=== PATIENT | male | born 1960 | race Two or more races ===

== ENCOUNTER 2017-12-31 14:10 | Inpatient (IN) | payer OTHER ==
[~2017-12-31] VITALS: Ht 172.7 cm; Wt 63.5 kg
[2017-12-31 16:00] VITALS: BP 158/98
--- NOTE | 2017-12-31 18:03 | PDOC1 ---
History and Physical Date of Admission Date of Admission DATE: 12/31/17 TIME: 18:02 Identification/Chief Complaint Chief Complaint sent here from [facility], FOR syncopal episode and elevated tropinin i , LOC with loss of bladder continence x sec, post ictal confusion is prisoner with in [place], has remote hx mi also having vague abdominal discomfort, CT ABD WNL, CT HEAD OK, SOME DDD C/S NOTED ON CT C/S Past Medical History Cardiovascular: CAD, CA, Syncope Pulmonary: No pertinent hx GI: GERD Psych: Anxiety Infectious disease: No pertinent hx Renal/: No pertinent hx Dermatology: No pertinent hx Family History Family History: High Cholestrol Social History Smoke: Quit ALCOHOL: none Drugs: None ROS Review of System 14 PT ROS OTHERWISE NEG General: YES: Other (HAS NOTED SOME WEIGHT LOSS); No: Chills, Night Sweats, Fatigue, Malaise, Appetite PSYCHOLOGICAL ROS: YES: Anxiety Hematological and Lymphatic: No: Bleeding Problems, Blood Clots, Blood Transfusions, Brusing, Night Sweats, Pallor, Swollen Lymph Nodes, Other Breast: No New/Changing Breast Lumps, No Nipple changes, No Nipple discharge, No Other Respiratory: No: Cough, Hemoptysis, Orthopnea, Pleuritic Pain, Shortness of breath, SOB with excertion, Sputum Changes, Stridor, Tachypnea, Wheezing, Other Cardiovascular: yes Other (SYNCOPE WITH POST LOC CONFUSION); No Chest Pain, No Palpitations, No Orthopnea, No Paroxysmal Noc. Dyspnea, No Edema, No Lt Headedness Gastrointestinal: Yes Abdominal Pain Neurological: Yes Weakness Physical Exam General: Alert, Oriented X3, Cooperative, No acute distress HEENT: Atraumatic, PERRLA, EOMI Lungs: Clear to auscultation, Normal air movement Heart: S1S2, no thrills, no gallops, no murmurs Breasts: Not examined Abdomen: Normal bowel sounds, Soft, No tenderness, No hepatosplenomegaly Rectal Exam: not examined, mass Extremities: No clubbing, No cyanosis, No edema Skin: No breakdown Neuro: Normal speech, Cranial nerves 3-12 NL Psych/Mental Status: Mental status NL, Mood NL Vitals Vitals Vital Signs Date Time Temp Pulse Resp B/P (MAP) Pulse Ox O2 Delivery O2 Flow Rate FiO2 12/31/17 16:00 98.5 75 20 158/98 (118) 98 Room Air 98.5 VTE Prophylaxis Ordered VTE Prophylaxis Devices: Yes VTE Pharmacological Prophylaxi: Yes Assessment/Plan Assessment/Plan impression 1. syncopal episode with hx CAD 2. LOC with loss of bladder continence 3. CAD/ REMOTE CA 4. elevated troponin i 5. ABDOMINAL DISCOMFORT, nonspecific 6. prostatic enlargement by ct 7. RLL nodule, suspect nipple shadow 8. GERD PLAN 1. TELE 2. CARDIOLOGY CONSULT 3. ECHO 4. seizure precautions 5. neurochecks q 4 hrs 6. EEG 7. IV PROTONIX 8. LOVENOX DVT PROPHYLAXIS 9. mri head 10. gi consult JUAN J BACON MD Dec 31, 2017 18:03
[2017-12-31] MEDS ORDERED: TRAM50TA PO (18:05)
[2017-12-31] MEDS ORDERED: CHOL100013 PO (18:05)
[2017-12-31] MEDS ORDERED: LISI-334 PO (18:05)
[2017-12-31] MEDS ORDERED: RANI150T2 PO (18:05)
[2017-12-31] MEDS ORDERED: METO25TA4 PO (18:05)
[2017-12-31] MEDS ORDERED: IBUP-1060 PO (18:05)
[2017-12-31] MEDS ORDERED: CYCL5TAB PO (18:05)
[2017-12-31] MEDS ORDERED: 0.9 % SODIUM CHLORIDE 10 ML DISP.SYRIN. IV PRN (18:45)
[2017-12-31] MEDS ORDERED: BISACODYL 10 MG SUPP.RECT. PR PRN (18:45)
[2017-12-31] MEDS ORDERED: ASPIRIN 325 MG TABLET PO ONE (18:45)
[2017-12-31] MEDS ORDERED: MAGNESIUM HYDROXIDE 2,400 MG/30 ML ORAL.SUSP. PO PRN (18:45)
[2017-12-31] MEDS ORDERED: NITROGLYCERIN SUBLINGUAL 0.4 MG BOTTLE OF 25. SL PRN (18:45)
[2017-12-31] MEDS ORDERED: PROCHLORPERAZINE 25 MG SUPP.RECT. PR PRN (18:45)
[2017-12-31] MEDS ORDERED: ONDANSETRON PF 4 MG/2 ML VIAL. IV PRN (18:45)
[2017-12-31] MEDS ORDERED: MAG HYDROX/ALUMINUM HYD/SIMETH 30 ML ORAL.SUSP PO PRN (18:45)
[2017-12-31 19:00] VITALS: BP 168/107
[2017-12-31] MEDS ORDERED: IBUPROFEN 800 MG TABLET. PO PRN (19:00)
[2017-12-31] MEDS: IV NORMAL SALINE 1000ML BAG 1,000 ML IV SCH (19:14)
[2017-12-31] MEDS ORDERED: ENOXAPARIN 40 MG/0.4 ML SYRINGE. SQ SCH ×2 (20:00→21:00)
[2017-12-31] MEDS: DOCUSATE SODIUM 100 MG CAPSULE. PO SCH (20:58)
[2017-12-31] MEDS: METOPROLOL TART IMMED RELEASE 25 MG TABLET. PO SCH (20:59)
[2017-12-31] MEDS: FAMOTIDINE 20 MG TABLET. PO SCH (20:59)
[2017-12-31] MEDS: CYCLOBENZAPRINE 10 MG TABLET. PO SCH (21:00)
[2017-12-31] MEDS: SENNOSIDES/DOCUSATE 8.6/50MG TABLET. PO SCH (21:00)
[2017-12-31 23:00] VITALS: BP 162/107
[2018-01-01] MEDS: ZOLPIDEM 5 MG TABLET. PO PRN ×2 (00:07→23:40)
[2018-01-01 03:00] VITALS: BP 145/101
[2018-01-01 05:23] LABS: BASO # 0.1 x10^3/uL (0.0-0.2); BASO % 1 % (0-3); EOS # 0.2 x10^3/uL (0.0-0.7); EOS % 2 % (0-3); HEMATOCRIT 35.7 % (39.0-53.0); HEMOGLOBIN 12.3 g/dL (13.0-17.5); LYMPH # 2.2 x10^3/uL (1.0-4.8); LYMPH % 22 % (24-48); MEAN CORPUSCULAR HEMOGLOBIN 30 pg (25-35); MEAN CORPUSCULAR HGB CONC 35 g/dL (31-37); MEAN CORPUSCULAR VOLUME 88 fL (79-100); MONO # 0.7 x10^3/uL (0.0-1.1); MONO % 7 % (0-9); NEUT # 6.5 x10^3uL (1.8-7.7); NEUT % 67 % (31-73); PLATELET COUNT 275 x10^3/uL (140-400); RED BLOOD COUNT 4.08 x10^6/uL (4.30-5.70); RED CELL DISTRIBUTION WIDTH 13.2 % (11.5-14.5); WHITE BLOOD COUNT 9.6 x10^3/uL (4.0-11.0)
[2018-01-01 05:29] LABS: PROTHROMBIN TIME PATIENT 14.2 SEC (11.7-14.0)
[2018-01-01 05:30] LABS: ALBUMIN 3.4 g/dL (3.4-5.0); ALBUMIN/GLOBULIN RATIO 1.1 (1.0-1.7); CALCIUM 9.2 mg/dL (8.5-10.1); CREATININE 0.8 mg/dL (0.7-1.3); GFR 99.6; POTASSIUM 3.6 mmol/L (3.5-5.1); TOTAL BILIRUBIN 0.4 mg/dL (0.2-1.0); TOTAL PROTEIN 6.4 g/dL (6.4-8.2)
[2018-01-01] MEDS: traMADol 50 MG TABLET PO PRN ×2 (05:33→15:46)
[2018-01-01] MEDS: IV NORMAL SALINE 1000ML BAG 1,000 ML IV SCH ×3 (05:38→19:30)
[2018-01-01 05:45] LABS: CHOLESTEROL/HDL RATIO 3.8
[2018-01-01 07:00] VITALS: BP 200/133
--- NOTE | 2018-01-01 08:05 | RAD ---
Portable chest, 12/31/2017: HISTORY: Chest pain Comparison is made to study of earlier the same day. The heart size and pulmonary vascularity are normal. There is mild scarring over the pulmonary apices. No acute infiltrate is seen. There is no evidence of pleural fluid. IMPRESSION: No acute cardiopulmonary abnormality is detected. Electronically signed by: Abhijeet Henao MD (01/01/2018 8:02 AM) [facility]
[2018-01-01] MEDS: FAMOTIDINE 20 MG TABLET. PO SCH (08:19)
[2018-01-01] MEDS: DOCUSATE SODIUM 100 MG CAPSULE. PO SCH ×2 (08:19→20:09)
[2018-01-01] MEDS: CHOLECALCIFEROL (VITAMIN D3) 1,000 UNIT TABLET PO SCH (08:19)
[2018-01-01] MEDS: SENNOSIDES/DOCUSATE 8.6/50MG TABLET. PO SCH ×2 (08:19→20:10)
[2018-01-01] MEDS: CYCLOBENZAPRINE 10 MG TABLET. PO SCH ×2 (08:20→20:09)
[2018-01-01] MEDS: LISINOPRIL 20 MG TABLET PO SCH (08:20)
[2018-01-01] MEDS: METOPROLOL TART IMMED RELEASE 25 MG TABLET. PO SCH (08:21)
--- NOTE | 2018-01-01 08:25 | EKG ---
[facility] [address] [place] [address] Test Date: 2018-01-01 Test Time: 07:30:28 Pat Name: ADELITA GLEZ Department: Room: 567 1 Gender: M Compliance Representative: STEPHAN : 1960 Requested By: JUAN J BACON Order Number: [id number] Reading MD: Jerry Larios MD Measurements Intervals [place] Rate: 70 P: 61 [place]: 162 QRS: 13 QRSD: 78 T: 39 QT: 382 QTc: 415 Interpretive Statements SINUS RHYTHM Electronically Signed On 01-01-2018 12:28:11 CDT by Jerry Larios MD
[2018-01-01] MEDS ORDERED: LABETALOL 20 MG/4 ML DISP.SYRIN. IVP PRN (09:15)
--- NOTE | 2018-01-01 09:25 | PDOC2 ---
GI CONSULT Reason For Consult: Abd discomfort HPI: HPI: 57 y/o male transferred to [facility] from [facility]. Recent issues w/ headaches and dizziness, then syncope yesterday. Followed by cardiology and neurology with workup in process. GI-dickey, has had issues w/ reflux mostly at night and after eating x 3 months. Taking ranitidine and Gaviscon w/o much relief. Some nausea after syncope, no vomiting. No dysphagia but feels like "food just won' t go down sometimes" - says he loses appetite quickly. Has lost ~10 pounds because he now only eats one meal a day. No diarrhea or constipation, but did have a period of passing significant amounts of red blood with stools - painless. Last occurred 3 weeks ago. Has happened int he past to a lesser extent. H/o CAD w/ stent and chronic neck pain on ASA and Tramadol, also recently ibuprofen for dental extractions. [place] about 11 [place] - recalls a "benign stomach cyst" but otherwise no significant findings. No GB, liver, or pancreas history. Hgb 12.3 [address]12 [address] A/P @ [facility] unremarkable for acute issue. PMH: PMH: CAD w/ stent, CA, HTN, ?TIA, ?seizure, BPH, GERD, depression, chronic neck pain , right knee arthroscopy, cataract removal Social History: Smoke: Quit ALCOHOL: none Drugs: Marijuana ROS: GEN: Denies fevers, chills, sweats HEENT: Denies blurred vision, sore throat CV: Denies chest pain RESP: Denies shortness of air, cough GI: Per HPI : Denies hematuria, dysuria ENDO: +weight loss NEURO: +dizziness MSK: +neck pain SKIN: Denies jaundice, pruritus Vitals: Vitals: Vital Signs Date Time Temp Pulse Resp B/P (MAP) Pulse Ox O2 Delivery O2 Flow Rate FiO2 01/01/18 08:21 Room Air 01/01/18 08:21 79 166/105 01/01/18 07:00 97.9 17 95 97.9 Labs: Labs: Laboratory Tests Test 01/01/18 02:35 01/01/18 04:30 Troponin I Quantitative < 0.017 ng/mL (0.000-0.055) < 0.017 ng/mL (0.000-0.055) White Blood Count 9.6 x10^3/uL (4.0-11.0) Red Blood Count 4.08 x10^6/uL (4.30-5.70) Hemoglobin 12.3 g/dL (13.0-17.5) Hematocrit 35.7 % (39.0-53.0) Mean Corpuscular Volume 88 fL (79-100) Mean Corpuscular Hemoglobin 30 pg (25-35) Mean Corpuscular Hemoglobin Concent 35 g/dL (31-37) Red Cell Distribution Width 13.2 % (11.5-14.5) Platelet Count 275 x10^3/uL (140-400) Neutrophils (%) (Auto) 67 % (31-73) Lymphocytes (%) (Auto) 22 % (24-48) Monocytes (%) (Auto) 7 % (0-9) Eosinophils (%) (Auto) 2 % (0-3) Basophils (%) (Auto) 1 % (0-3) Neutrophils # (Auto) 6.5 x10^3uL (1.8-7.7) Lymphocytes # (Auto) 2.2 x10^3/uL (1.0-4.8) Monocytes # (Auto) 0.7 x10^3/uL (0.0-1.1) Eosinophils # (Auto) 0.2 x10^3/uL (0.0-0.7) Basophils # (Auto) 0.1 x10^3/uL (0.0-0.2) Prothrombin Time 14.2 SEC (11.7-14.0) Prothromb Time International Ratio 1.2 (0.8-1.1) Sodium Level 133 mmol/L (136-145) Potassium Level 3.6 mmol/L (3.5-5.1) Chloride Level 98 mmol/L (98-107) Carbon Dioxide Level 23 mmol/L (21-32) Anion Gap 12 (6-14) Blood Urea Nitrogen 5 mg/dL (8-26) Creatinine 0.8 mg/dL (0.7-1.3) Estimated GFR (Cockcroft-Gault) 99.6 BUN/Creatinine Ratio 6 (6-20) Glucose Level 98 mg/dL (70-99) Calcium Level 9.2 mg/dL (8.5-10.1) Total Bilirubin 0.4 mg/dL (0.2-1.0) Aspartate Amino Transf (AST/SGOT) 14 U/L (15-37) Alanine Aminotransferase (ALT/SGPT) 18 U/L (16-63) Alkaline Phosphatase 82 U/L (46-116) Total Protein 6.4 g/dL (6.4-8.2) Albumin 3.4 g/dL (3.4-5.0) Albumin/Globulin Ratio 1.1 (1.0-1.7) Triglycerides Level 77 mg/dL (0-150) Cholesterol Level 196 mg/dL (0-200) LDL Cholesterol, Calculated 130 mg/dL (0-100) VLDL Cholesterol, Calculated 15 mg/dL (0-40) Non-HDL Cholesterol Calculated 145 mg/dL (0-129) HDL Cholesterol 51 mg/dL (40-60) Cholesterol/HDL Ratio 3.8 Thyroid Stimulating Hormone (TSH) 2.226 uIU/mL (0.358-3.74) Allergies: Coded Allergies: Penicillins (Verified Allergy, Intermediate, Rash, 01/01/18) Medications: Current Medications Medications (Trade) Dose Ordered Sig/Fátima Route PRN Reason Start Time Stop Time Status Last Admin Dose Admin Aspirin (Oliva Aspirin) 325 mg 1X ONCE PO 12/31/17 18:45 12/31/17 18:46 DC 12/31/17 19:14 Zolpidem Tartrate (Ambien) 5 mg PRN QHS PRN PO INSOMNIA 12/31/17 18:45 01/01/18 00:07 Sodium Chloride 1,000 ml @ 100 mls/hr Q10H IV 12/31/17 18:32 01/01/18 05:38 Senna/Docusate Sodium (Senna Plus) 1 tab BID PO 12/31/17 21:00 01/01/18 08:19 Docusate Sodium (Colace) 100 mg BID PO 12/31/17 21:00 01/01/18 08:19 Enoxaparin Sodium (Lovenox 40mg Syringe) 40 mg Q24H SQ 12/31/17 20:00 01/01/18 09:02 DC 12/31/17 21:02 Lisinopril (Prinivil) 20 mg DAILY PO 01/01/18 09:00 01/01/18 08:20 Metoprolol Tartrate (Lopressor) 12.5 mg BID PO 12/31/17 21:00 01/01/18 08:21 Tramadol HCl (Ultram) 50 mg TID PRN PRN PO PAIN 12/31/17 18:45 01/01/18 05:33 Vitamin D (Vitamin D3) 1,000 unit DAILY PO 01/01/18 09:00 01/01/18 08:19 Cyclobenzaprine HCl (Flexeril) 5 mg BID PO 12/31/17 21:00 01/01/18 08:20 Ibuprofen (Motrin) 800 mg PRN Q8HRS PRN PO INFLAMMATION 12/31/17 19:00 01/01/18 09:02 DC 01/01/18 00:07 Famotidine (Pepcid) 20 mg BID PO 12/31/17 21:00 01/01/18 08:19 Imaging: Imaging: CXR IMPRESSION: No acute cardiopulmonary abnormality is detected. Brain MRI (pending) PE: GEN: NAD HEENT: +neck brace LUNGS: CTAB HEART: RRR ABD: NABS, S/ND/NT EXTREMITY: No edema SKIN: No rashes, no jaundice NEURO/PSYCH: A & O 3 A/P: A/P: Syncope, headaches CAD w/ stents, HTN - on ASA GERD, decreased appetite, weight loss Hematochezia - resolved Anemia - low B12 CRC screen - last 11 years ago Neck pain on NSAIDs -- Await neurology and cardiology workup. Will likely need EGD + colonoscopy early next week prior to DC. Start B12 (already ordered) + PPI. ANNEMARIE SAWANT Jan 01, 2018 09:25
--- NOTE | 2018-01-01 10:49 | PDOC2 ---
COBY CORONADO GUT CAR[employer]ER 01/01/18 1048: CARDIAC CONSULT DATE OF CONSULT Date of Consult DATE: 01/01/18 TIME: 10:18 REASON FOR CONSULT Reason for Consult: Syncope REFERRING PHYSICIAN Referring Physician: Fullbright SOURCE Source: Chart review, Patient HISTORY OF PRESENT ILLNESS HISTORY OF PRESENT ILLNESS This is a pleasant 57 yo female admitted for complains of passing out. Reports that in the last few days he has been having more frequent SCHULTZ and starts of behind his eyes with some blurred vision bu no auditory disturbances nor facial tingling but he has been having chronic neck pain and presently has a soft collar. No hx of migraine or chronic SCHULTZ. Reports that he also has been having periods of dizziness. Yesterday he ended up going to [facility] from the correctional facility due to passing out. Reports that he was talking to someone when he felt dizzy has SCHULTZ then the next thing he remembered was he was on a stretcher. It is unclear how long he was unconscious but he did get nauseated and vomited after waking up and actually had urinary incontinence. He was told that he may have had seizure few months ago and possibly mini stroke 2 months ago. Also has passed out not too long ago. He has CAD with stent x1 f yrs somewhere in [place] and followed a cardiology there and was actually placed on heart monitor 05/2017 which he has not turned in and still at his place over because he was arrested. He has been heartburn and epigastric discomfort but no chest pain, SOA, or feeling of palpitations. PAST MEDICAL HISTORY Cardiovascular: CAD, HTN, Hyperlipidemia Pulmonary: No pertinent hx CENTRAL NERVOUS SYSTEM: Seizure (?), TIA (?) GI: GERD Heme/Onc: No pertinent hx Hepatobiliary: No pertinent hx Psych: Depression (was on prozac but was taken off due to hyponatremia) Musculoskeletal: Osteoarthritis Rheumatologic: No pertinent hx Infectious disease: No pertinent hx ENT: No pertinent hx Renal/: Benign prostatic enlarg. Endocrine: No pertinent hx Dermatology: No pertinent hx PAST SURGICAL HISTORY Past Surgical History: Arthroscopy (left knee meniscus repair), Other (PCI/ stent 4 yrs ago) FAMILY HISTORY Family History: High Cholestrol SOCIAL HISTORY Smoke: <1 pack per day ALCOHOL: none Drugs: None Lives: Alone (correctional facility) CURRENT MEDICATIONS CURRENT MEDICATIONS Current Medications Medications (Trade) Dose Ordered Sig/Fátima Route PRN Reason Start Time Stop Time Status Last Admin Dose Admin Aspirin (Oliva Aspirin) 325 mg 1X ONCE PO 12/31/17 18:45 12/31/17 18:46 DC 12/31/17 19:14 Zolpidem Tartrate (Ambien) 5 mg PRN QHS PRN PO INSOMNIA 12/31/17 18:45 01/01/18 00:07 Sodium Chloride 1,000 ml @ 100 mls/hr Q10H IV 12/31/17 18:32 01/01/18 05:38 Senna/Docusate Sodium (Senna Plus) 1 tab BID PO 12/31/17 21:00 01/01/18 08:19 Docusate Sodium (Colace) 100 mg BID PO 12/31/17 21:00 01/01/18 08:19 Enoxaparin Sodium (Lovenox 40mg Syringe) 40 mg Q24H SQ 12/31/17 20:00 01/01/18 09:02 DC 12/31/17 21:02 Lisinopril (Prinivil) 20 mg DAILY PO 01/01/18 09:00 01/01/18 08:20 Metoprolol Tartrate (Lopressor) 12.5 mg BID PO 12/31/17 21:00 01/01/18 08:21 Tramadol HCl (Ultram) 50 mg TID PRN PRN PO PAIN 12/31/17 18:45 01/01/18 05:33 Vitamin D (Vitamin D3) 1,000 unit DAILY PO 01/01/18 09:00 01/01/18 08:19 Cyclobenzaprine HCl (Flexeril) 5 mg BID PO 12/31/17 21:00 01/01/18 08:20 Ibuprofen (Motrin) 800 mg PRN Q8HRS PRN PO INFLAMMATION 12/31/17 19:00 01/01/18 09:02 DC 01/01/18 00:07 Famotidine (Pepcid) 20 mg BID PO 12/31/17 21:00 01/01/18 08:19 ALLERGIES ALLERGIES: Coded Allergies: Penicillins (Verified Allergy, Intermediate, Rash, 01/01/18) ROS Review of System 14 point ROS evaluated with pertinent positives noted per HPI PHYSICAL EXAM General: Alert, Oriented X3, Cooperative, No acute distress HEENT: Atraumatic, Mucous membr. moist/pink Lungs: Clear to auscultation, Normal air movement Heart: Regular rate (SR), Normal S1, Normal S2, No murmurs Abdomen: Soft, No tenderness Extremities: No cyanosis, No edema Skin: No breakdown, No significant lesion Neuro: Normal speech, Sensation intact Psych/Mental Status: Mental status NL, Mood NL MUSCULOSKELETAL: Osteoarthritic changes both hands VITALS VITALS Vital Signs Date Time Temp Pulse Resp B/P (MAP) Pulse Ox O2 Delivery O2 Flow Rate FiO2 01/01/18 08:21 Room Air 01/01/18 08:21 79 166/105 01/01/18 07:00 97.9 17 95 97.9 LABS Lab: Laboratory Tests Test 01/01/18 02:35 01/01/18 04:30 Troponin I Quantitative < 0.017 ng/mL (0.000-0.055) < 0.017 ng/mL (0.000-0.055) White Blood Count 9.6 x10^3/uL (4.0-11.0) Red Blood Count 4.08 x10^6/uL (4.30-5.70) Hemoglobin 12.3 g/dL (13.0-17.5) Hematocrit 35.7 % (39.0-53.0) Mean Corpuscular Volume 88 fL (79-100) Mean Corpuscular Hemoglobin 30 pg (25-35) Mean Corpuscular Hemoglobin Concent 35 g/dL (31-37) Red Cell Distribution Width 13.2 % (11.5-14.5) Platelet Count 275 x10^3/uL (140-400) Neutrophils (%) (Auto) 67 % (31-73) Lymphocytes (%) (Auto) 22 % (24-48) Monocytes (%) (Auto) 7 % (0-9) Eosinophils (%) (Auto) 2 % (0-3) Basophils (%) (Auto) 1 % (0-3) Neutrophils # (Auto) 6.5 x10^3uL (1.8-7.7) Lymphocytes # (Auto) 2.2 x10^3/uL (1.0-4.8) Monocytes # (Auto) 0.7 x10^3/uL (0.0-1.1) Eosinophils # (Auto) 0.2 x10^3/uL (0.0-0.7) Basophils # (Auto) 0.1 x10^3/uL (0.0-0.2) Prothrombin Time 14.2 SEC (11.7-14.0) Prothromb Time International Ratio 1.2 (0.8-1.1) Sodium Level 133 mmol/L (136-145) Potassium Level 3.6 mmol/L (3.5-5.1) Chloride Level 98 mmol/L (98-107) Carbon Dioxide Level 23 mmol/L (21-32) Anion Gap 12 (6-14) Blood Urea Nitrogen 5 mg/dL (8-26) Creatinine 0.8 mg/dL (0.7-1.3) Estimated GFR (Cockcroft-Gault) 99.6 BUN/Creatinine Ratio 6 (6-20) Glucose Level 98 mg/dL (70-99) Calcium Level 9.2 mg/dL (8.5-10.1) Total Bilirubin 0.4 mg/dL (0.2-1.0) Aspartate Amino Transf (AST/SGOT) 14 U/L (15-37) Alanine Aminotransferase (ALT/SGPT) 18 U/L (16-63) Alkaline Phosphatase 82 U/L (46-116) Total Protein 6.4 g/dL (6.4-8.2) Albumin 3.4 g/dL (3.4-5.0) Albumin/Globulin Ratio 1.1 (1.0-1.7) Triglycerides Level 77 mg/dL (0-150) Cholesterol Level 196 mg/dL (0-200) LDL Cholesterol, Calculated 130 mg/dL (0-100) VLDL Cholesterol, Calculated 15 mg/dL (0-40) Non-HDL Cholesterol Calculated 145 mg/dL (0-129) HDL Cholesterol 51 mg/dL (40-60) Cholesterol/HDL Ratio 3.8 Prostate Specific Antigen 1.10 ng/mL (0.00-4.00) Vitamin B12 Level 227 pg/mL (247-911) Thyroid Stimulating Hormone (TSH) 2.226 uIU/mL (0.358-3.74) ASSESSMENT/PLAN ASSESSMENT/PLAN 1. Syncope: possible seizure. No injury 2. SCHULTZ/chronic neck pain: Migraine component. Neurology following 3. Abdominal pain: Hgb stable. GI has been consulted for GI bleed 4. CAD: clinically stable. stent x1 4 yrs ago at [place]. 5. Possible past hx of TIA 6. HTN: controlled 7. HLP 8. Tobaccoism Recommendations 1. 05/2017 incomplete event monitor as this was not turned in. No significant arrhythmias so far. Continue to monitor for changes 2. TTE today. 2 episodes of HR mid40s otherwise no significant bradycardia issues. HR mean 70s. Continue lisinopril. Change metoprolol to coreg 3. Pt has issue with hyponatremia in the past, would not uptitrate ACEi, so if BP remains labile then could add norvasc. 4. Restart ASA if no objection from GI and statin. 5. Will need future outpt event monitor but likely would not get approved due to unreturned device from 05/2017 and also will need clarification if this could also be used in the correctional facility. 6. Smoking cessation RENÉ BRYANT MD 01/01/18 1646: CARDIAC CONSULT ASSESSMENT/PLAN ASSESSMENT/PLAN Pt. seen and examined. Agree with above MINE TECHNICIAN note. Exam, EKG, echo wnl. supportive care. f/u prn. If recurrent syncope, consider outpt event monitor through jail if approved. Pls call with questions. COBY CORONADO APRN Jan 01, 2018 10:48 RENÉ BRYANT MD Jan 01, 2018 16:46
--- NOTE | 2018-01-01 10:56 | RAD ---
EXAMINATION: Magnetic resonance imaging (MRI) of the brain and brainstem without contrast 01/01/2018 8:00 AM HISTORY: Syncope, hypertension TECHNIQUE: Multiplanar multi-weighted MRI of the brain and brainstem was performed without intravenous contrast using the general brain protocol. COMPARISON: CT head December 31, 2017 FINDINGS: The scalp and calvarium are normal. The superior sagittal sinus demonstrates normal venous flow. The corpus callosum is normal in shape and signal intensity. The posterior fossa is unremarkable. The pituitary and sella are normal. The brainstem and craniocervical junction are unremarkable. Few scattered foci of T2/FLAIR signal hyperintensity are identified in the subcortical white matter, within limits of age-related degenerative changes. Diffusion weighted images reveal no hyperintensities to suggest acute cerebral infarction. The susceptibility weighted sequences reveal no evidence of acute or chronic hemorrhage. The ventricles are normal in size and position without evidence of hydrocephalus. Mild mucosal thickening of the ethmoid air cells is noted. The visualized portions of the mastoids are unremarkable. The orbits appear normal the exception of right lens placement. Normal flow voids are demonstrated in the carotid arteries and basilar artery. IMPRESSION: No evidence for acute or subacute ischemia. Electronically signed by: Bozena Denson MD (01/01/2018 10:52 AM) [id number]
[2018-01-01 11:00] VITALS: BP 174/104
--- NOTE | 2018-01-01 12:19 | PDOC ---
PROGRESS NOTES Chief Complaint Chief Complaint 1. syncopal episode with hx CAD 2. LOC with loss of bladder continence 3. CAD/ REMOTE NV 4. elevated troponin i 5. ABDOMINAL DISCOMFORT, nonspecific 6. prostatic enlargement by ct 7. RLL nodule, suspect nipple shadow 8. GERD History of Present Illness History of Present Illness NO Arrhythmogenic events No recurrence of the bleeding in the stool Needs to have the cervical collar few more weeks-he came in with that, he had an accident prior to admission I did speak with Dr. EMA Martinez of the facility, they would prefer that the C scope and EGD would be done as outpatient instead of inpatient, [facility]ing [facility] GI will get back to me later Neurology has ordered MRI and EEG MRI of the brain is negative CT scan done at [facility] is negative of the abdomen and pelvis Hemoglobin stable at 12, no hypotension or tachycardia He claims he got dizzy and lightheaded prior to the syncope. He did lose bladder control Echo is pending from cards Plan: Await EEG, C scope EGD plan tentatively early next week, but the facility wants him back if able to do these scopes as outpatient, GI will get back to me High blood pressure, add some when necessary's clonidine or labetolol WOF for further recurrence of hematochezia Was just taking aspirin 81 at home, hold that for now Discussed with many people, significant time 45 minutes cumulative Vitals Vitals Vital Signs Date Time Temp Pulse Resp B/P (MAP) Pulse Ox O2 Delivery O2 Flow Rate FiO2 01/01/18 08:21 Room Air 01/01/18 08:21 79 166/105 01/01/18 07:00 97.9 17 95 97.9 Physical Exam General: Alert, Oriented X3, Cooperative, No acute distress Heart: Regular rate (SR), Normal S1, Normal S2, No murmurs Abdomen: Soft, No tenderness Extremities: No cyanosis, No edema Skin: No breakdown, No significant lesion Labs LABS Laboratory Tests Test 01/01/18 02:35 01/01/18 04:30 Troponin I Quantitative < 0.017 ng/mL (0.000-0.055) < 0.017 ng/mL (0.000-0.055) White Blood Count 9.6 x10^3/uL (4.0-11.0) Red Blood Count 4.08 x10^6/uL (4.30-5.70) Hemoglobin 12.3 g/dL (13.0-17.5) Hematocrit 35.7 % (39.0-53.0) Mean Corpuscular Volume 88 fL (79-100) Mean Corpuscular Hemoglobin 30 pg (25-35) Mean Corpuscular Hemoglobin Concent 35 g/dL (31-37) Red Cell Distribution Width 13.2 % (11.5-14.5) Platelet Count 275 x10^3/uL (140-400) Neutrophils (%) (Auto) 67 % (31-73) Lymphocytes (%) (Auto) 22 % (24-48) Monocytes (%) (Auto) 7 % (0-9) Eosinophils (%) (Auto) 2 % (0-3) Basophils (%) (Auto) 1 % (0-3) Neutrophils # (Auto) 6.5 x10^3uL (1.8-7.7) Lymphocytes # (Auto) 2.2 x10^3/uL (1.0-4.8) Monocytes # (Auto) 0.7 x10^3/uL (0.0-1.1) Eosinophils # (Auto) 0.2 x10^3/uL (0.0-0.7) Basophils # (Auto) 0.1 x10^3/uL (0.0-0.2) Prothrombin Time 14.2 SEC (11.7-14.0) Prothromb Time International Ratio 1.2 (0.8-1.1) Sodium Level 133 mmol/L (136-145) Potassium Level 3.6 mmol/L (3.5-5.1) Chloride Level 98 mmol/L (98-107) Carbon Dioxide Level 23 mmol/L (21-32) Anion Gap 12 (6-14) Blood Urea Nitrogen 5 mg/dL (8-26) Creatinine 0.8 mg/dL (0.7-1.3) Estimated GFR (Cockcroft-Gault) 99.6 BUN/Creatinine Ratio 6 (6-20) Glucose Level 98 mg/dL (70-99) Calcium Level 9.2 mg/dL (8.5-10.1) Total Bilirubin 0.4 mg/dL (0.2-1.0) Aspartate Amino Transf (AST/SGOT) 14 U/L (15-37) Alanine Aminotransferase (ALT/SGPT) 18 U/L (16-63) Alkaline Phosphatase 82 U/L (46-116) Total Protein 6.4 g/dL (6.4-8.2) Albumin 3.4 g/dL (3.4-5.0) Albumin/Globulin Ratio 1.1 (1.0-1.7) Triglycerides Level 77 mg/dL (0-150) Cholesterol Level 196 mg/dL (0-200) LDL Cholesterol, Calculated 130 mg/dL (0-100) VLDL Cholesterol, Calculated 15 mg/dL (0-40) Non-HDL Cholesterol Calculated 145 mg/dL (0-129) HDL Cholesterol 51 mg/dL (40-60) Cholesterol/HDL Ratio 3.8 Prostate Specific Antigen 1.10 ng/mL (0.00-4.00) Vitamin B12 Level 227 pg/mL (247-911) Thyroid Stimulating Hormone (TSH) 2.226 uIU/mL (0.358-3.74) Review of Systems Review of Systems A 14 point ROS was completed with the following noted as positive: Other systems reviewed and negative. \CONSTITUTIONAL: No fever or chills EYES: No recent changes SKIN: No rash or itching CARDIOVASCULAR: No chest pain, syncope, palpitations, or edema RESPIRATORY: No SOB or cough GASTROINTESTINAL: No nausea, vomiting or abdominal pain NEUROLOGICAL: No headaches or weakness ENDOCRINE: No cold or heat intolerance GENITOURINARY: No urgency or frequency of urination MUSCULOSKELETAL: No back pain or joint pain LYMPHATICS: No enlarged lymph nodes PSYCHIATRIC: No anxiety or depression Comment Review of Relevant I have reviewed the following items andree (where applicable) has been applied. Labs Laboratory Tests Test 12/31/17 07:24 01/01/18 02:35 01/01/18 04:30 Nasal Screen MRSA (PCR) Negative (Negative) Troponin I Quantitative < 0.017 ng/mL (0.000-0.055) < 0.017 ng/mL (0.000-0.055) White Blood Count 9.6 x10^3/uL (4.0-11.0) Red Blood Count 4.08 x10^6/uL (4.30-5.70) Hemoglobin 12.3 g/dL (13.0-17.5) Hematocrit 35.7 % (39.0-53.0) Mean Corpuscular Volume 88 fL (79-100) Mean Corpuscular Hemoglobin 30 pg (25-35) Mean Corpuscular Hemoglobin Concent 35 g/dL (31-37) Red Cell Distribution Width 13.2 % (11.5-14.5) Platelet Count 275 x10^3/uL (140-400) Neutrophils (%) (Auto) 67 % (31-73) Lymphocytes (%) (Auto) 22 % (24-48) Monocytes (%) (Auto) 7 % (0-9) Eosinophils (%) (Auto) 2 % (0-3) Basophils (%) (Auto) 1 % (0-3) Neutrophils # (Auto) 6.5 x10^3uL (1.8-7.7) Lymphocytes # (Auto) 2.2 x10^3/uL (1.0-4.8) Monocytes # (Auto) 0.7 x10^3/uL (0.0-1.1) Eosinophils # (Auto) 0.2 x10^3/uL (0.0-0.7) Basophils # (Auto) 0.1 x10^3/uL (0.0-0.2) Prothrombin Time 14.2 SEC (11.7-14.0) Prothromb Time International Ratio 1.2 (0.8-1.1) Sodium Level 133 mmol/L (136-145) Potassium Level 3.6 mmol/L (3.5-5.1) Chloride Level 98 mmol/L (98-107) Carbon Dioxide Level 23 mmol/L (21-32) Anion Gap 12 (6-14) Blood Urea Nitrogen 5 mg/dL (8-26) Creatinine 0.8 mg/dL (0.7-1.3) Estimated GFR (Cockcroft-Gault) 99.6 BUN/Creatinine Ratio 6 (6-20) Glucose Level 98 mg/dL (70-99) Calcium Level 9.2 mg/dL (8.5-10.1) Total Bilirubin 0.4 mg/dL (0.2-1.0) Aspartate Amino Transf (AST/SGOT) 14 U/L (15-37) Alanine Aminotransferase (ALT/SGPT) 18 U/L (16-63) Alkaline Phosphatase 82 U/L (46-116) Total Protein 6.4 g/dL (6.4-8.2) Albumin 3.4 g/dL (3.4-5.0) Albumin/Globulin Ratio 1.1 (1.0-1.7) Triglycerides Level 77 mg/dL (0-150) Cholesterol Level 196 mg/dL (0-200) LDL Cholesterol, Calculated 130 mg/dL (0-100) VLDL Cholesterol, Calculated 15 mg/dL (0-40) Non-HDL Cholesterol Calculated 145 mg/dL (0-129) HDL Cholesterol 51 mg/dL (40-60) Cholesterol/HDL Ratio 3.8 Prostate Specific Antigen 1.10 ng/mL (0.00-4.00) Vitamin B12 Level 227 pg/mL (247-911) Thyroid Stimulating Hormone (TSH) 2.226 uIU/mL (0.358-3.74) Laboratory Tests Test 01/01/18 02:35 01/01/18 04:30 Troponin I Quantitative < 0.017 ng/mL (0.000-0.055) < 0.017 ng/mL (0.000-0.055) White Blood Count 9.6 x10^3/uL (4.0-11.0) Red Blood Count 4.08 x10^6/uL (4.30-5.70) Hemoglobin 12.3 g/dL (13.0-17.5) Hematocrit 35.7 % (39.0-53.0) Mean Corpuscular Volume 88 fL (79-100) Mean Corpuscular Hemoglobin 30 pg (25-35) Mean Corpuscular Hemoglobin Concent 35 g/dL (31-37) Red Cell Distribution Width 13.2 % (11.5-14.5) Platelet Count 275 x10^3/uL (140-400) Neutrophils (%) (Auto) 67 % (31-73) Lymphocytes (%) (Auto) 22 % (24-48) Monocytes (%) (Auto) 7 % (0-9) Eosinophils (%) (Auto) 2 % (0-3) Basophils (%) (Auto) 1 % (0-3) Neutrophils # (Auto) 6.5 x10^3uL (1.8-7.7) Lymphocytes # (Auto) 2.2 x10^3/uL (1.0-4.8) Monocytes # (Auto) 0.7 x10^3/uL (0.0-1.1) Eosinophils # (Auto) 0.2 x10^3/uL (0.0-0.7) Basophils # (Auto) 0.1 x10^3/uL (0.0-0.2) Prothrombin Time 14.2 SEC (11.7-14.0) Prothromb Time International Ratio 1.2 (0.8-1.1) Sodium Level 133 mmol/L (136-145) Potassium Level 3.6 mmol/L (3.5-5.1) Chloride Level 98 mmol/L (98-107) Carbon Dioxide Level 23 mmol/L (21-32) Anion Gap 12 (6-14) Blood Urea Nitrogen 5 mg/dL (8-26) Creatinine 0.8 mg/dL (0.7-1.3) Estimated GFR (Cockcroft-Gault) 99.6 BUN/Creatinine Ratio 6 (6-20) Glucose Level 98 mg/dL (70-99) Calcium Level 9.2 mg/dL (8.5-10.1) Total Bilirubin 0.4 mg/dL (0.2-1.0) Aspartate Amino Transf (AST/SGOT) 14 U/L (15-37) Alanine Aminotransferase (ALT/SGPT) 18 U/L (16-63) Alkaline Phosphatase 82 U/L (46-116) Total Protein 6.4 g/dL (6.4-8.2) Albumin 3.4 g/dL (3.4-5.0) Albumin/Globulin Ratio 1.1 (1.0-1.7) Triglycerides Level 77 mg/dL (0-150) Cholesterol Level 196 mg/dL (0-200) LDL Cholesterol, Calculated 130 mg/dL (0-100) VLDL Cholesterol, Calculated 15 mg/dL (0-40) Non-HDL Cholesterol Calculated 145 mg/dL (0-129) HDL Cholesterol 51 mg/dL (40-60) Cholesterol/HDL Ratio 3.8 Prostate Specific Antigen 1.10 ng/mL (0.00-4.00) Vitamin B12 Level 227 pg/mL (247-911) Thyroid Stimulating Hormone (TSH) 2.226 uIU/mL (0.358-3.74) Medications Current Medications Aspirin (Oliva Aspirin) 325 mg 1X ONCE PO Last administered on 12/31/17at 19:14 ; Start 12/31/17 at 18:45; Stop 12/31/17 at 18:46; Status DC Nitroglycerin (Nitrostat) 0.4 mg PRN Q5MIN PRN SL CHEST PAIN; Start 12/31/17 at 18:45 Acetaminophen (Tylenol) 650 mg PRN Q6HRS PRN PO MILD PAIN / TEMP; Start at 18:45 Al Hydroxide/Mg Hydroxide (Mylanta Plus Xs) 30 ml PRN Q4HRS PRN PO HEARTBURN / GAS; Start 12/31/17 at 18:45 Ondansetron HCl (Zofran) 4 mg PRN Q6HRS PRN IV NAUSEA/VOMITING; Start 12/31/17 at 18:45 Prochlorperazine (Compazine) 25 mg PRN Q12HR PRN [place] NAUSEA/VOMITING; Start at 18:45 Zolpidem Tartrate (Ambien) 5 mg PRN QHS PRN PO INSOMNIA Last administered on at 00:07; Start 12/31/17 at 18:45 Enoxaparin Sodium (Lovenox 40mg Syringe) 40 mg Q12HR SQ ; Start 12/31/17 at 21: 00; Status UNV Sodium Chloride (Normal Saline Flush) 3 ml QSHIFT PRN IV AFTER MEDS AND BLOOD DRAWS; Start 12/31/17 at 18:45 Sodium Chloride 1,000 ml @ 100 mls/hr Q10H IV Last administered on 01/01/18at 05:38; Start 12/31/17 at 18:32 Senna/Docusate Sodium (Senna Plus) 1 tab BID PO Last administered on 01/01/18at 08:19; Start 12/31/17 at 21:00 Docusate Sodium (Colace) 100 mg BID PO Last administered on 01/01/18at 08:19; Start 12/31/17 at 21:00 Magnesium Hydroxide (Milk Of Magnesia) 2,400 mg PRN Q12HR PRN PO CONSTIPATION; Start 12/31/17 at 18:45 Bisacodyl (Dulcolax Supp) 10 mg PRN DAILY PRN [place] CONSTIPATION; Start 12/31/17 at 18:45 Enoxaparin Sodium (Lovenox 40mg Syringe) 40 mg Q24H SQ Last administered on at 21:02; Start 12/31/17 at 20:00; Stop 01/01/18 at 09:02; Status DC Lisinopril (Prinivil) 20 mg DAILY PO Last administered on 01/01/18at 08:20; Start 01/01/18 at 09:00 Metoprolol Tartrate (Lopressor) 12.5 mg BID PO Last administered on 01/01/18at 08:21; Start 12/31/17 at 21:00; Stop 01/01/18 at 10:48; Status DC Tramadol HCl (Ultram) 50 mg TID PRN PRN PO MOD-SEVERE PAIN Last administered on 01/01/18at 05:33; Start 12/31/17 at 18:45 Vitamin D (Vitamin D3) 1,000 unit DAILY PO Last administered on 01/01/18at 08:19 ; Start 01/01/18 at 09:00 Cyclobenzaprine HCl (Flexeril) 5 mg BID PO Last administered on 01/01/18at 08:20 ; Start 12/31/17 at 21:00 Ibuprofen (Motrin) 800 mg PRN Q8HRS PRN PO INFLAMMATION Last administered on at 00:07; Start 12/31/17 at 19:00; Stop 01/01/18 at 09:02; Status DC Famotidine (Pepcid) 20 mg BID PO Last administered on 01/01/18at 08:19; Start at 21:00; Stop 01/01/18 at 11:14; Status DC Lorazepam (Ativan) 2 mg PRN Q4HRS PRN IV ANXIETY / AGITATION; Start 12/31/17 at 18:45 Labetalol HCl (Normodyne Iv Push) 20 mg PRN Q2HR PRN IVP HYPERTENSION, SEE COMMENTS; Start 01/01/18 at 09:15; Stop 01/01/18 at 10:48; Status DC Atorvastatin Calcium (Lipitor) 20 mg QHS PO ; Start 01/01/18 at 21:00; Stop at 21:00; Status DC Atorvastatin Calcium (Lipitor) 40 mg QHS PO ; Start 01/01/18 at 21:00 Carvedilol (Coreg) 3.125 mg BIDWMEALS PO ; Start 01/01/18 at 17:00 Aspirin (Ecotrin) 81 mg DAILYWBKFT PO ; Start 01/01/18 at 11:30 Amlodipine Besylate (Norvasc) 5 mg DAILY PO ; Start 01/01/18 at 11:30 Cyanocobalamin (Vitamin B-12) 1,000 mcg DAILY PO ; Start 01/01/18 at 12:00 Pantoprazole Sodium (Protonix) 40 mg BIDAC PO ; Start 01/01/18 at 16:30 Active Scripts Active Reported Cyclobenzaprine Hcl 5 Mg Tablet 1 Tab PO BID Vitamin D (Cholecalciferol (Vitamin D3)) 1,000 Unit Capsule 1 Cap PO DAILY Tramadol Hcl 50 Mg Tablet 50 Mg PO TID PRN PRN Ranitidine Hcl 150 Mg Tablet 1 Tab PO BID Lisinopril 20 Mg Tablet 1 Tab PO DAILY Metoprolol Tartrate 25 Mg Tablet 0.5 Tab PO BID Ibuprofen 800 Mg Tablet 800 Mg PO TID PRN Vitals/I & O Vital Sign - Last 24 Hours 12/31/17 12/31/17 12/31/17 12/31/17 16:00 18:07 19:00 20:00 Temp 98.5 98.0 98.5 98.0 Pulse 75 70 Resp 20 20 B/P (MAP) 158/98 (118) 168/107 (127) Pulse Ox 98 97 O2 Delivery Room Air Room Air Room Air Room Air 12/31/17 12/31/17 01/01/18 01/01/18 20:59 23:00 03:00 05:33 Temp 98.8 97.9 98.8 97.9 Pulse 70 61 72 Resp 20 20 B/P (MAP) 140/90 162/107 (125) 145/101 (116) Pulse Ox 97 94 O2 Delivery Nasal Cannula Room Air Room Air 01/01/18 01/01/18 01/01/18 01/01/18 07:00 08:00 08:20 08:21 Temp 97.9 97.9 Pulse 70 79 79 Resp 17 B/P (MAP) 200/133 (155) 166/105 166/105 Pulse Ox 95 O2 Delivery Room Air Room Air 01/01/18 08:21 O2 Delivery Room Air Intake and Output 12/31/17 12/31/17 01/01/18 15:00 23:00 07:00 Intake Total 60 ml 600 ml Output Total 300 ml Balance 60 ml 300 ml MARTITA QUIROS MD Jan 01, 2018 12:19
[2018-01-01] MEDS: CYANOCOBALAMIN (VITAMIN B-12) 1,000 MCG TABLET. PO SCH (12:46)
[2018-01-01] MEDS: ASPIRIN ENTERIC COATED 81 MG TABLET.DR. PO SCH (12:48)
[2018-01-01] MEDS: amLODIPine BESYLATE 5 MG TABLET PO SCH (12:48)
--- NOTE | 2018-01-01 13:11 | CARD ---
MR#: [id number] Date of Study: 01/01/2018 Ordering Physician: JUAN J BACON, Referring Physician: JUAN J BACON, Tech: Chioma Suero RDCS APPROVED REPORT EXAM: Two-dimensional and M-mode echocardiogram with Doppler and color Doppler. Other Information Quality : Good INDICATION Syncope 2D DIMENSIONS RVDd3.4 (2.9-3.5cm)Left Atrium(2D)2.8 (1.6-4.0cm) IVSd0.9 (0.7-1.1cm)Aortic Root(2D)2.3 (2.0-3.7cm) LVDd3.2 (3.9-5.9cm)LVOT Diameter1.9 (1.8-2.4cm) PWd0.9 (0.7-1.1cm)LVDs2.6 (2.5-4.0cm) FS (%) 27.0 %SV16.1 ml LVEF(%)55.0 (>50%) Aortic Valve AoV Peak Alec.130.2cm/sAoV VTI24.7cm AO Peak GR.6.8mmHgLVOT Peak Alec.143.6cm/s LVOT VTI 27.90cmAO Mean GR.4mmHg ANNIE (VMAX)3.05mx9PCD (VTI)3.27cm2 Mitral Valve MV E Bnpwppjd59.1cm/sMV DECEL [id number] MV A Vfddbrmv06.5cm/sMV [id number] E/A Ratio0.8MVA (PHT)2.88cm2 TDI E/Lateral E'7.6E/Medial E'10.5 Tricuspid Valve TR P. [id number]/sRAP [id number] TR Peak Gr.[id number] Pulmonary Vein S1 Gfnwpjsk84.3cm/sD2 Vsjkkmqu20.2cm/s LEFT VENTRICLE The left ventricle is normal size. There is normal left ventricular wall thickness. The left ventricu lar systolic function is normal. The Ejection Fraction is 55-60%. There is normal LV segmental wall m otion. Transmitral Doppler flow pattern is Grade I-abnormal relaxation pattern. RIGHT VENTRICLE The right ventricle is normal size. The right ventricular systolic function is normal. ATRIA The left atrium size is normal. The right atrium size is normal. The interatrial septum is intact wit h no evidence for an atrial septal defect or patent foramen ovale as noted on 2-D or Doppler imaging. AORTIC VALVE The aortic valve is calcified but opens well. Doppler and Color Flow revealed no significant aortic r egurgitation. There is no significant aortic valvular stenosis. MITRAL VALVE The mitral valve is calcified but opens well. There is no evidence of mitral valve prolapse. There is no mitral valve stenosis. Doppler and Color-flow revealed trace to mild mitral regurgitation. TRICUSPID VALVE The tricuspid valve is normal in structure and function. Doppler and Color Flow revealed trace tricus pid regurgitation. The PA pressure was estimated at 26 mmHg. There is no tricuspid valve stenosis. PULMONIC VALVE The pulmonic valve is not well visualized. Doppler and Color Flow revealed trace pulmonic valvular re gurgitation. There is no pulmonic valvular stenosis. GREAT VESSELS The aortic root is normal in size. The ascending aorta is not well seen. The IVC is normal in size an d collapses >50% with inspiration. PERICARDIAL EFFUSION There is no evidence of significant pericardial effusion. Critical Notification Critical Value: No <Conclusion> The left ventricular systolic function is normal. The Ejection Fraction is 55-60%. There is normal LV segmental wall motion. Transmitral Doppler flow pattern is Grade I-abnormal relaxation pattern. Trace to mild mitral regurgitation. Trace tricuspid regurgitation. The PA pressure was estimated at 26 mmHg. There is no evidence of significant pericardial effusion. Signed by : Calvin Rendon, Electronically Approved : 01/01/2018 13:10:06
[2018-01-01 15:00] VITALS: BP 148/91
--- NOTE | 2018-01-01 15:18 | PDOC2 ---
NEUROLOGY CONSULT Date of Admission Date of Admission DATE: 01/01/18 TIME: 15:10 Reason for Consult Reason for Consult: IMPRESSION: Syncopal spell vs seizure? RECOMMENDATIONS/PLAN: HISTORY OF THE PRESENT ILLNESS: PAST MEDICAL HISTORY Cardiovascular: CAD, HTN, Hyperlipidemia Pulmonary: No pertinent hx CENTRAL NERVOUS SYSTEM: Seizure (?), TIA (?) GI: GERD Heme/Onc: No pertinent hx Hepatobiliary: No pertinent hx Psych: Depression (was on prozac but was taken off due to hyponatremia) Musculoskeletal: Osteoarthritis Rheumatologic: No pertinent hx Infectious disease: No pertinent hx ENT: No pertinent hx Renal/: Benign prostatic enlarg. Endocrine: No pertinent hx Dermatology: No pertinent hx PAST SURGICAL HISTORY Past Surgical History: Arthroscopy (left knee meniscus repair), Other (PCI/ stent 4 yrs ago) FAMILY HISTORY Family History: High Cholestrol SOCIAL HISTORY Smoke: <1 pack per day ALCOHOL: none Drugs: None Lives: Alone (correctional facility ALLERGIES Penicillins (Verified Allergy, Intermediate, Rash, 01/01/18) PAST MEDICAL HISTORY: Please see above. PAST SURGERY HISTORY: Pacemaker Placement, S/P CABG, Tonsillectomy, Appendectomy , Cholecystectomy, Hysterectomy, Hernia Repair, Neck, Shoulder, Knee surgery, No major surgery recently. ALLERGY: NKDA Unknown MEDICATIONS: Refer to [facility] FAMILY HISTORY: HTN, HLD, DM, CAD, PD, Dementia, Non contributory. SOCIAL HISTORY: Lives alone. Lives in long-term. Denies smoking, drinking, and illicit drug use. He She smokes pack of cigarettes a day for years. He She drinks OZ alcohol a day for years. REVIEW OF SYSTEMS: Constitutional: No malnutrition, weight loss, cachexia. Head: No traumatic brain or head injury. Skin: No edema, or rash. Ear: No infection, tinnitus. Eyes: No vision loss or color blindness. Nose: No bleeding or purulent discharges. Hearing: No hearing decrease. Neck: No injury. Breast: No history of cancer, masses,or discharges. Cardiac: No CT, arrhythmia,claudication, CAD, s/p CABG, AFib, Pacemaker Placement, HTN, HLD. Pulmonary: No pneumonia, COPD. GI: No GI ulcer, GI bleeding, GERD. Urinary/genital: No dysuria, hematuria, incontinence, urinary retention, UTI. Endocrinologic: No cousin face, craniofacial dysmorphism, polydactyly, goiter, Diabetes Mellitus, hypothyroidism, obesity, morbid obesity. Skeletomuscular: No muscular atrophy, deformity, Generalized weakness. Neurological: see HP. Psychiatric: Denies drug use/abuse. Otherwise, not [id number] review of systems. PHYSICAL EXAMINATION: General appearance is in no acute distress. HEENT: Normocephalic and nontraumatic. Eyes, nose, ears, and throat are unremarkable. Neck is supple. No lymphadenopathy. No bruits are heard over the carotid artery. No crepitus. Cardiovascular: S1, S2, regular rate and rhythm. Pulmonary: Clear to auscultation bilaterally. Abdomen: Bowel sounds are positive. Abdomen is soft, nontender, and nondistended. Extremities: No rash, lesions, or edema. No restriction of range of motion NEUROLOGICAL EXAMINATION: Alert Oriented to time, place and person. PERRL. EOMI. CN: no focal findings. Muscle tone: within normal. Muscle strength: 5 DTR: 2 Plantar reflex: Flexor/Neutral response bilaterally Gait: not examined in bed. At baseline normal. Sensory exam: no abnormal findings. No cerebellar signs elicited. F-T-N test accurate. Current Medications Current Medications Current Medications Aspirin (Oliva Aspirin) 325 mg 1X ONCE PO Last administered on 12/31/17at 19:14 ; Start 12/31/17 at 18:45; Stop 12/31/17 at 18:46; Status DC Nitroglycerin (Nitrostat) 0.4 mg PRN Q5MIN PRN SL CHEST PAIN; Start 12/31/17 at 18:45 Acetaminophen (Tylenol) 650 mg PRN Q6HRS PRN PO MILD PAIN / TEMP; Start at 18:45 Al Hydroxide/Mg Hydroxide (Mylanta Plus Xs) 30 ml PRN Q4HRS PRN PO HEARTBURN / GAS; Start 12/31/17 at 18:45 Ondansetron HCl (Zofran) 4 mg PRN Q6HRS PRN IV NAUSEA/VOMITING; Start 12/31/17 at 18:45 Prochlorperazine (Compazine) 25 mg PRN Q12HR PRN CO NAUSEA/VOMITING; Start at 18:45 Zolpidem Tartrate (Ambien) 5 mg PRN QHS PRN PO INSOMNIA Last administered on at 00:07; Start 12/31/17 at 18:45 Enoxaparin Sodium (Lovenox 40mg Syringe) 40 mg Q12HR SQ ; Start 12/31/17 at 21: 00; Status UNV Sodium Chloride (Normal Saline Flush) 3 ml QSHIFT PRN IV AFTER MEDS AND BLOOD DRAWS; Start 12/31/17 at 18:45 Sodium Chloride 1,000 ml @ 100 mls/hr Q10H IV Last administered on 01/01/18at 05:38; Start 12/31/17 at 18:32 Senna/Docusate Sodium (Senna Plus) 1 tab BID PO Last administered on 01/01/18 08:19; Start 12/31/17 at 21:00 Docusate Sodium (Colace) 100 mg BID PO Last administered on 01/01/18 08:19; Start 12/31/17 at 21:00 Magnesium Hydroxide (Milk Of Magnesia) 2,400 mg PRN Q12HR PRN PO CONSTIPATION; Start 12/31/17 at 18:45 Bisacodyl (Dulcolax Supp) 10 mg PRN DAILY PRN CO CONSTIPATION; Start 12/31/17 at 18:45 Enoxaparin Sodium (Lovenox 40mg Syringe) 40 mg Q24H SQ Last administered on at 21:02; Start 12/31/17 at 20:00; Stop 01/01/18 at 09:02; Status DC Lisinopril (Prinivil) 20 mg DAILY PO Last administered on 01/01/18at 08:20; Start 01/01/18 at 09:00 Metoprolol Tartrate (Lopressor) 12.5 mg BID PO Last administered on 01/01/18at 08:21; Start 12/31/17 at 21:00; Stop 01/01/18 at 10:48; Status DC Tramadol HCl (Ultram) 50 mg TID PRN PRN PO MOD-SEVERE PAIN Last administered on 01/01/18at 05:33; Start 12/31/17 at 18:45 Vitamin D (Vitamin D3) 1,000 unit DAILY PO Last administered on 01/01/18at 08:19 ; Start 01/01/18 at 09:00 Cyclobenzaprine HCl (Flexeril) 5 mg BID PO Last administered on 01/01/18at 08:20 ; Start 12/31/17 at 21:00 Ibuprofen (Motrin) 800 mg PRN Q8HRS PRN PO INFLAMMATION Last administered on at 00:07; Start 12/31/17 at 19:00; Stop 01/01/18 at 09:02; Status DC Famotidine (Pepcid) 20 mg BID PO Last administered on 01/01/18at 08:19; Start at 21:00; Stop 01/01/18 at 11:14; Status DC Lorazepam (Ativan) 2 mg PRN Q4HRS PRN IV ANXIETY / AGITATION; Start 12/31/17 at 18:45 Labetalol HCl (Normodyne Iv Push) 20 mg PRN Q2HR PRN IVP HYPERTENSION, SEE COMMENTS; Start 01/01/18 at 09:15; Stop 01/01/18 at 10:48; Status DC Atorvastatin Calcium (Lipitor) 20 mg QHS PO ; Start 01/01/18 at 21:00; Stop at 21:00; Status DC Atorvastatin Calcium (Lipitor) 40 mg QHS PO ; Start 01/01/18 at 21:00 Carvedilol (Coreg) 3.125 mg BIDWMEALS PO ; Start 01/01/18 at 17:00 Aspirin (Ecotrin) 81 mg DAILYWBKFT PO Last administered on 01/01/18at 12:48; Start 01/01/18 at 11:30 Amlodipine Besylate (Norvasc) 5 mg DAILY PO Last administered on 01/01/18at 12: 48; Start 01/01/18 at 11:30 Cyanocobalamin (Vitamin B-12) 1,000 mcg DAILY PO Last administered on at 12:46; Start 01/01/18 at 12:00 Pantoprazole Sodium (Protonix) 40 mg BIDAC PO ; Start 01/01/18 at 16:30 Active Scripts Active Reported Cyclobenzaprine Hcl 5 Mg Tablet 1 Tab PO BID Vitamin D (Cholecalciferol (Vitamin D3)) 1,000 Unit Capsule 1 Cap PO DAILY Tramadol Hcl 50 Mg Tablet 50 Mg PO TID PRN PRN Ranitidine Hcl 150 Mg Tablet 1 Tab PO BID Lisinopril 20 Mg Tablet 1 Tab PO DAILY Metoprolol Tartrate 25 Mg Tablet 0.5 Tab PO BID Ibuprofen 800 Mg Tablet 800 Mg PO TID PRN Allergies Allergies: Allergies Coded Allergies Type Severity Reaction Last Updated Verified Penicillins Allergy Intermediate Rash 01/01/18 Yes ROS Review of System The patient denies any associated fevers, chills, headache, ear pain, rhinorrhea , sore throat, stiff neck, productive cough, chest pain, shortness of breath, back or flank pain, abdominal pain, nausea, vomiting, diarrhea, constipation, dysuria, rash, numbness, weakness, tingling, incontinence, difficulty ambulating, or diaphoresis. Physical Exam Physical Exam General: Well developed, well nourished, no acute distress, well appearing HEENT: Pupils equally round and reactive to light, EOMI, no discharge, normal conjunctiva Neck: Supple, no nuchal rigidity, no JVD, trachea midline, no tenderness Cardiac: RRR, no murmurs, no gallops, no rubs Chest/Lungs: CTAB, no wheeze, no rhonchi, no crackles Abdomen: soft, non-distended, no guarding, no peritoneal signs, non-tender Back: No tenderness Extremities: no edema, pulses intact, non-tender,capillary refill <3 sec bilateral upper and lower extremities, Neuro: Alert and oriented x 4, no focal deficits, normal speech Vitals Vitals: Vital Signs Date Time Temp Pulse Resp B/P (MAP) Pulse Ox O2 Delivery O2 Flow Rate FiO2 01/01/18 12:48 65 174/104 01/01/18 11:00 97.9 18 98 Room Air 97.9 Labs Labs Laboratory Tests Test 12/31/17 07:24 01/01/18 02:35 01/01/18 04:30 Nasal Screen MRSA (PCR) Negative (Negative) Troponin I Quantitative < 0.017 ng/mL (0.000-0.055) < 0.017 ng/mL (0.000-0.055) White Blood Count 9.6 x10^3/uL (4.0-11.0) Red Blood Count 4.08 x10^6/uL (4.30-5.70) Hemoglobin 12.3 g/dL (13.0-17.5) Hematocrit 35.7 % (39.0-53.0) Mean Corpuscular Volume 88 fL (79-100) Mean Corpuscular Hemoglobin 30 pg (25-35) Mean Corpuscular Hemoglobin Concent 35 g/dL (31-37) Red Cell Distribution Width 13.2 % (11.5-14.5) Platelet Count 275 x10^3/uL (140-400) Neutrophils (%) (Auto) 67 % (31-73) Lymphocytes (%) (Auto) 22 % (24-48) Monocytes (%) (Auto) 7 % (0-9) Eosinophils (%) (Auto) 2 % (0-3) Basophils (%) (Auto) 1 % (0-3) Neutrophils # (Auto) 6.5 x10^3uL (1.8-7.7) Lymphocytes # (Auto) 2.2 x10^3/uL (1.0-4.8) Monocytes # (Auto) 0.7 x10^3/uL (0.0-1.1) Eosinophils # (Auto) 0.2 x10^3/uL (0.0-0.7) Basophils # (Auto) 0.1 x10^3/uL (0.0-0.2) Prothrombin Time 14.2 SEC (11.7-14.0) Prothromb Time International Ratio 1.2 (0.8-1.1) Sodium Level 133 mmol/L (136-145) Potassium Level 3.6 mmol/L (3.5-5.1) Chloride Level 98 mmol/L (98-107) Carbon Dioxide Level 23 mmol/L (21-32) Anion Gap 12 (6-14) Blood Urea Nitrogen 5 mg/dL (8-26) Creatinine 0.8 mg/dL (0.7-1.3) Estimated GFR (Cockcroft-Gault) 99.6 BUN/Creatinine Ratio 6 (6-20) Glucose Level 98 mg/dL (70-99) Calcium Level 9.2 mg/dL (8.5-10.1) Total Bilirubin 0.4 mg/dL (0.2-1.0) Aspartate Amino Transf (AST/SGOT) 14 U/L (15-37) Alanine Aminotransferase (ALT/SGPT) 18 U/L (16-63) Alkaline Phosphatase 82 U/L (46-116) Total Protein 6.4 g/dL (6.4-8.2) Albumin 3.4 g/dL (3.4-5.0) Albumin/Globulin Ratio 1.1 (1.0-1.7) Triglycerides Level 77 mg/dL (0-150) Cholesterol Level 196 mg/dL (0-200) LDL Cholesterol, Calculated 130 mg/dL (0-100) VLDL Cholesterol, Calculated 15 mg/dL (0-40) Non-HDL Cholesterol Calculated 145 mg/dL (0-129) HDL Cholesterol 51 mg/dL (40-60) Cholesterol/HDL Ratio 3.8 Prostate Specific Antigen 1.10 ng/mL (0.00-4.00) Vitamin B12 Level 227 pg/mL (247-911) Thyroid Stimulating Hormone (TSH) 2.226 uIU/mL (0.358-3.74) Laboratory Tests Test 01/01/18 02:35 01/01/18 04:30 Troponin I Quantitative < 0.017 ng/mL (0.000-0.055) < 0.017 ng/mL (0.000-0.055) White Blood Count 9.6 x10^3/uL (4.0-11.0) Red Blood Count 4.08 x10^6/uL (4.30-5.70) Hemoglobin 12.3 g/dL (13.0-17.5) Hematocrit 35.7 % (39.0-53.0) Mean Corpuscular Volume 88 fL (79-100) Mean Corpuscular Hemoglobin 30 pg (25-35) Mean Corpuscular Hemoglobin Concent 35 g/dL (31-37) Red Cell Distribution Width 13.2 % (11.5-14.5) Platelet Count 275 x10^3/uL (140-400) Neutrophils (%) (Auto) 67 % (31-73) Lymphocytes (%) (Auto) 22 % (24-48) Monocytes (%) (Auto) 7 % (0-9) Eosinophils (%) (Auto) 2 % (0-3) Basophils (%) (Auto) 1 % (0-3) Neutrophils # (Auto) 6.5 x10^3uL (1.8-7.7) Lymphocytes # (Auto) 2.2 x10^3/uL (1.0-4.8) Monocytes # (Auto) 0.7 x10^3/uL (0.0-1.1) Eosinophils # (Auto) 0.2 x10^3/uL (0.0-0.7) Basophils # (Auto) 0.1 x10^3/uL (0.0-0.2) Prothrombin Time 14.2 SEC (11.7-14.0) Prothromb Time International Ratio 1.2 (0.8-1.1) Sodium Level 133 mmol/L (136-145) Potassium Level 3.6 mmol/L (3.5-5.1) Chloride Level 98 mmol/L (98-107) Carbon Dioxide Level 23 mmol/L (21-32) Anion Gap 12 (6-14) Blood Urea Nitrogen 5 mg/dL (8-26) Creatinine 0.8 mg/dL (0.7-1.3) Estimated GFR (Cockcroft-Gault) 99.6 BUN/Creatinine Ratio 6 (6-20) Glucose Level 98 mg/dL (70-99) Calcium Level 9.2 mg/dL (8.5-10.1) Total Bilirubin 0.4 mg/dL (0.2-1.0) Aspartate Amino Transf (AST/SGOT) 14 U/L (15-37) Alanine Aminotransferase (ALT/SGPT) 18 U/L (16-63) Alkaline Phosphatase 82 U/L (46-116) Total Protein 6.4 g/dL (6.4-8.2) Albumin 3.4 g/dL (3.4-5.0) Albumin/Globulin Ratio 1.1 (1.0-1.7) Triglycerides Level 77 mg/dL (0-150) Cholesterol Level 196 mg/dL (0-200) LDL Cholesterol, Calculated 130 mg/dL (0-100) VLDL Cholesterol, Calculated 15 mg/dL (0-40) Non-HDL Cholesterol Calculated 145 mg/dL (0-129) HDL Cholesterol 51 mg/dL (40-60) Cholesterol/HDL Ratio 3.8 Prostate Specific Antigen 1.10 ng/mL (0.00-4.00) Vitamin B12 Level 227 pg/mL (247-911) Thyroid Stimulating Hormone (TSH) 2.226 uIU/mL (0.358-3.74) SALINAS BRADY MD Jan 01, 2018 15:17
[2018-01-01 15:52] LABS: BARBITURATES NEG (NEG); BENZODIAZEPINES NEG (NEG); CANNABINOIDS NEG (NEG); COCAINE NEG (NEG); METHADONE NEG (NEG); OPIATES NEG (NEG); PHENCYCLIDINE NEG (NEG)
[2018-01-01 16:00] LABS: AMPHETAMINE/METHAMPHETAMINE NEG (NEG)
[2018-01-01] MEDS: PANTOPRAZOLE 40 MG TABLET.DR. PO SCH (16:34)
[2018-01-01] MEDS: CARVEDILOL 3.125 MG TABLET. PO SCH (16:35)
--- NOTE | 2018-01-01 18:22 | PDOC2 ---
NEUROLOGY CONSULT Date of Admission Date of Admission DATE: 01/01/18 TIME: 18:00 Reason for Consult Reason for Consult: Syncopal spell vs seizure? Confusion, brief. CAD. [place] Hx. HTN. HLD. 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 No evidence of acute intracranial abnormal findings this time. RECOMMENDATIONS/PLAN: EEG. Treat medical and cardiac diseases. Vit B12 supplement. HISTORY OF THE PRESENT ILLNESS: This is a 57-y-old male inmate. He had an episode as syncopal spell vs seizure with briefly LOC then confusion, but no detailed information is available. No convulsion reported. The patient was unable to provide information about his episode. PAST MEDICAL HISTORY Cardiovascular: CAD, HTN, Hyperlipidemia Pulmonary: No pertinent hx CENTRAL NERVOUS SYSTEM: Seizure (?), TIA (?) GI: GERD Heme/Onc: No pertinent hx Hepatobiliary: No pertinent hx Psych: Depression (was on prozac but was taken off due to hyponatremia) Musculoskeletal: Osteoarthritis Rheumatologic: No pertinent hx Infectious disease: No pertinent hx ENT: No pertinent hx Renal/: Benign prostatic enlarg. Endocrine: No pertinent hx Dermatology: No pertinent hx PAST SURGICAL HISTORY Arthroscopy (left knee meniscus repair), Other (PCI/stent 4 yrs ago) FAMILY HISTORY HLD. SOCIAL HISTORY Smoke: <1 pack per day ALCOHOL: none Drugs: None Lives: Currently in correctional facility. ALLERGIES Penicillins (Verified Allergy, Intermediate, Rash, 01/01/18) MEDICATIONS: Refer to [facility] REVIEW OF SYSTEMS: Constitutional: No malnutrition, weight loss, cachexia. Head: No recent traumatic brain or head injury. Skin: No edema, or rash. Ear: No infection. Eyes: No vision loss or color blindness. Nose: No bleeding or purulent discharges. Hearing: No hearing decrease. Neck: No injury. Cardiac: CAD, HTN, HLD. Pulmonary: No COPD. GI: GERD. Urinary/genital: No dysuria, incontinence, urinary retention. Endocrinologic: No cousin face, craniofacial dysmorphism, polydactyly. Skeletomuscular: No muscular atrophy, deformity. Neurological: see HP. Psychiatric: Denies drug use/abuse. Otherwise, not [id number] review of systems. PHYSICAL EXAMINATION: General appearance is in no acute distress. HEENT: Normocephalic and nontraumatic. Eyes, nose, ears, and throat are unremarkable. Neck is supple. No lymphadenopathy. No crepitus. Cardiovascular: S1, S2, regular rate and rhythm. Pulmonary: Clear to auscultation bilaterally. Abdomen: Bowel sounds are positive. Extremities: No rash, lesions, or edema. No restriction of range of motion NEUROLOGICAL EXAMINATION: Alert. Oriented to time, place and person. PERRL. EOMI. CN: no focal findings. Muscle tone: within normal. Muscle strength: 5 DTR: 2 Plantar reflex: Flexor response bilaterally Gait: not examined in bed. Sensory exam: no abnormal findings. No cerebellar signs elicited. F-T-N test fine. Current Medications Current Medications Current Medications Aspirin (Oliva Aspirin) 325 mg 1X ONCE PO Last administered on 12/31/17at 19:14 ; Start 12/31/17 at 18:45; Stop 12/31/17 at 18:46; Status DC Nitroglycerin (Nitrostat) 0.4 mg PRN Q5MIN PRN SL CHEST PAIN; Start 12/31/17 at 18:45 Acetaminophen (Tylenol) 650 mg PRN Q6HRS PRN PO MILD PAIN / TEMP; Start at 18:45 Al Hydroxide/Mg Hydroxide (Mylanta Plus Xs) 30 ml PRN Q4HRS PRN PO HEARTBURN / GAS; Start 12/31/17 at 18:45 Ondansetron HCl (Zofran) 4 mg PRN Q6HRS PRN IV NAUSEA/VOMITING; Start 12/31/17 at 18:45 Prochlorperazine (Compazine) 25 mg PRN Q12HR PRN PA NAUSEA/VOMITING; Start at 18:45 Zolpidem Tartrate (Ambien) 5 mg PRN QHS PRN PO INSOMNIA Last administered on at 00:07; Start 12/31/17 at 18:45 Enoxaparin Sodium (Lovenox 40mg Syringe) 40 mg Q12HR SQ ; Start 12/31/17 at 21: 00; Status UNV Sodium Chloride (Normal Saline Flush) 3 ml QSHIFT PRN IV AFTER MEDS AND BLOOD DRAWS; Start 12/31/17 at 18:45 Sodium Chloride 1,000 ml @ 100 mls/hr Q10H IV Last administered on 01/01/18at 05:38; Start 12/31/17 at 18:32 Senna/Docusate Sodium (Senna Plus) 1 tab BID PO Last administered on 01/01/18 08:19; Start 12/31/17 at 21:00 Docusate Sodium (Colace) 100 mg BID PO Last administered on 01/01/18 08:19; Start 12/31/17 at 21:00 Magnesium Hydroxide (Milk Of Magnesia) 2,400 mg PRN Q12HR PRN PO CONSTIPATION; Start 12/31/17 at 18:45 Bisacodyl (Dulcolax Supp) 10 mg PRN DAILY PRN PA CONSTIPATION; Start 12/31/17 at 18:45 Enoxaparin Sodium (Lovenox 40mg Syringe) 40 mg Q24H SQ Last administered on at 21:02; Start 12/31/17 at 20:00; Stop 01/01/18 at 09:02; Status DC Lisinopril (Prinivil) 20 mg DAILY PO Last administered on 01/01/18at 08:20; Start 01/01/18 at 09:00 Metoprolol Tartrate (Lopressor) 12.5 mg BID PO Last administered on 01/01/18at 08:21; Start 12/31/17 at 21:00; Stop 01/01/18 at 10:48; Status DC Tramadol HCl (Ultram) 50 mg TID PRN PRN PO MOD-SEVERE PAIN Last administered on 01/01/18at 15:46; Start 12/31/17 at 18:45 Vitamin D (Vitamin D3) 1,000 unit DAILY PO Last administered on 01/01/18at 08:19 ; Start 01/01/18 at 09:00 Cyclobenzaprine HCl (Flexeril) 5 mg BID PO Last administered on 01/01/18at 08:20 ; Start 12/31/17 at 21:00 Ibuprofen (Motrin) 800 mg PRN Q8HRS PRN PO INFLAMMATION Last administered on at 00:07; Start 12/31/17 at 19:00; Stop 01/01/18 at 09:02; Status DC Famotidine (Pepcid) 20 mg BID PO Last administered on 01/01/18at 08:19; Start at 21:00; Stop 01/01/18 at 11:14; Status DC Lorazepam (Ativan) 2 mg PRN Q4HRS PRN IV ANXIETY / AGITATION; Start 12/31/17 at 18:45 Labetalol HCl (Normodyne Iv Push) 20 mg PRN Q2HR PRN IVP HYPERTENSION, SEE COMMENTS; Start 01/01/18 at 09:15; Stop 01/01/18 at 10:48; Status DC Atorvastatin Calcium (Lipitor) 20 mg QHS PO ; Start 01/01/18 at 21:00; Stop at 21:00; Status DC Atorvastatin Calcium (Lipitor) 40 mg QHS PO ; Start 01/01/18 at 21:00 Carvedilol (Coreg) 3.125 mg BIDWMEALS PO Last administered on 01/01/18at 16:35; Start 01/01/18 at 17:00 Aspirin (Ecotrin) 81 mg DAILYWBKFT PO Last administered on 01/01/18at 12:48; Start 01/01/18 at 11:30 Amlodipine Besylate (Norvasc) 5 mg DAILY PO Last administered on 01/01/18at 12: 48; Start 01/01/18 at 11:30 Cyanocobalamin (Vitamin B-12) 1,000 mcg DAILY PO Last administered on at 12:46; Start 01/01/18 at 12:00 Pantoprazole Sodium (Protonix) 40 mg BIDAC PO Last administered on 01/01/18at 16 :34; Start 01/01/18 at 16:30 Active Scripts Active Reported Cyclobenzaprine Hcl 5 Mg Tablet 1 Tab PO BID Vitamin D (Cholecalciferol (Vitamin D3)) 1,000 Unit Capsule 1 Cap PO DAILY Tramadol Hcl 50 Mg Tablet 50 Mg PO TID PRN PRN Ranitidine Hcl 150 Mg Tablet 1 Tab PO BID Lisinopril 20 Mg Tablet 1 Tab PO DAILY Metoprolol Tartrate 25 Mg Tablet 0.5 Tab PO BID Ibuprofen 800 Mg Tablet 800 Mg PO TID PRN Allergies Allergies: Allergies Coded Allergies Type Severity Reaction Last Updated Verified Penicillins Allergy Intermediate Rash 01/01/18 Yes ROS Review of System The patient denies any associated fevers, chills, headache, ear pain, rhinorrhea , sore throat, stiff neck, productive cough, chest pain, shortness of breath, back or flank pain, abdominal pain, nausea, vomiting, diarrhea, constipation, dysuria, rash, numbness, weakness, tingling, incontinence, difficulty ambulating, or diaphoresis. Physical Exam Physical Exam General: Well developed, well nourished, no acute distress, well appearing HEENT: Pupils equally round and reactive to light, EOMI, no discharge, normal conjunctiva Neck: Supple, no nuchal rigidity, no JVD, trachea midline, no tenderness Cardiac: RRR, no murmurs, no gallops, no rubs Chest/Lungs: CTAB, no wheeze, no rhonchi, no crackles Abdomen: soft, non-distended, no guarding, no peritoneal signs, non-tender Back: No tenderness Extremities: no edema, pulses intact, non-tender,capillary refill <3 sec bilateral upper and lower extremities, Neuro: Alert and oriented x 4, no focal deficits, normal speech Vitals Vitals: Vital Signs Date Time Temp Pulse Resp B/P (MAP) Pulse Ox O2 Delivery O2 Flow Rate FiO2 01/01/18 16:35 67 148/91 01/01/18 15:46 Room Air 01/01/18 15:00 97.9 18 96 97.9 Labs Labs Laboratory Tests Test 12/31/17 07:24 01/01/18 02:35 01/01/18 04:30 01/01/18 15:30 Nasal Screen MRSA (PCR) Negative (Negative) Troponin I Quantitative < 0.017 ng/mL (0.000-0.055) < 0.017 ng/mL (0.000-0.055) White Blood Count 9.6 x10^3/uL (4.0-11.0) Red Blood Count 4.08 x10^6/uL (4.30-5.70) Hemoglobin 12.3 g/dL (13.0-17.5) Hematocrit 35.7 % (39.0-53.0) Mean Corpuscular Volume 88 fL (79-100) Mean Corpuscular Hemoglobin 30 pg (25-35) Mean Corpuscular Hemoglobin Concent 35 g/dL (31-37) Red Cell Distribution Width 13.2 % (11.5-14.5) Platelet Count 275 x10^3/uL (140-400) Neutrophils (%) (Auto) 67 % (31-73) Lymphocytes (%) (Auto) 22 % (24-48) Monocytes (%) (Auto) 7 % (0-9) Eosinophils (%) (Auto) 2 % (0-3) Basophils (%) (Auto) 1 % (0-3) Neutrophils # (Auto) 6.5 x10^3uL (1.8-7.7) Lymphocytes # (Auto) 2.2 x10^3/uL (1.0-4.8) Monocytes # (Auto) 0.7 x10^3/uL (0.0-1.1) Eosinophils # (Auto) 0.2 x10^3/uL (0.0-0.7) Basophils # (Auto) 0.1 x10^3/uL (0.0-0.2) Prothrombin Time 14.2 SEC (11.7-14.0) Prothromb Time International Ratio 1.2 (0.8-1.1) Sodium Level 133 mmol/L (136-145) Potassium Level 3.6 mmol/L (3.5-5.1) Chloride Level 98 mmol/L (98-107) Carbon Dioxide Level 23 mmol/L (21-32) Anion Gap 12 (6-14) Blood Urea Nitrogen 5 mg/dL (8-26) Creatinine 0.8 mg/dL (0.7-1.3) Estimated GFR (Cockcroft-Gault) 99.6 BUN/Creatinine Ratio 6 (6-20) Glucose Level 98 mg/dL (70-99) Calcium Level 9.2 mg/dL (8.5-10.1) Total Bilirubin 0.4 mg/dL (0.2-1.0) Aspartate Amino Transf (AST/SGOT) 14 U/L (15-37) Alanine Aminotransferase (ALT/SGPT) 18 U/L (16-63) Alkaline Phosphatase 82 U/L (46-116) Total Protein 6.4 g/dL (6.4-8.2) Albumin 3.4 g/dL (3.4-5.0) Albumin/Globulin Ratio 1.1 (1.0-1.7) Triglycerides Level 77 mg/dL (0-150) Cholesterol Level 196 mg/dL (0-200) LDL Cholesterol, Calculated 130 mg/dL (0-100) VLDL Cholesterol, Calculated 15 mg/dL (0-40) Non-HDL Cholesterol Calculated 145 mg/dL (0-129) HDL Cholesterol 51 mg/dL (40-60) Cholesterol/HDL Ratio 3.8 Prostate Specific Antigen 1.10 ng/mL (0.00-4.00) Vitamin B12 Level 227 pg/mL (247-911) Thyroid Stimulating Hormone (TSH) 2.226 uIU/mL (0.358-3.74) Urine Opiates Screen Neg (NEG) Urine Methadone Screen Neg (NEG) Urine Barbiturates Neg (NEG) Urine Phencyclidine Screen Neg (NEG) Urine Amphetamine/Methamphetamine Neg (NEG) Urine Benzodiazepines Screen Neg (NEG) Urine Cocaine Screen Neg (NEG) Urine Cannabinoids Screen Neg (NEG) Urine Ethyl Alcohol Neg (NEG) Laboratory Tests Test 01/01/18 02:35 01/01/18 04:30 01/01/18 15:30 Troponin I Quantitative < 0.017 ng/mL (0.000-0.055) < 0.017 ng/mL (0.000-0.055) White Blood Count 9.6 x10^3/uL (4.0-11.0) Red Blood Count 4.08 x10^6/uL (4.30-5.70) Hemoglobin 12.3 g/dL (13.0-17.5) Hematocrit 35.7 % (39.0-53.0) Mean Corpuscular Volume 88 fL (79-100) Mean Corpuscular Hemoglobin 30 pg (25-35) Mean Corpuscular Hemoglobin Concent 35 g/dL (31-37) Red Cell Distribution Width 13.2 % (11.5-14.5) Platelet Count 275 x10^3/uL (140-400) Neutrophils (%) (Auto) 67 % (31-73) Lymphocytes (%) (Auto) 22 % (24-48) Monocytes (%) (Auto) 7 % (0-9) Eosinophils (%) (Auto) 2 % (0-3) Basophils (%) (Auto) 1 % (0-3) Neutrophils # (Auto) 6.5 x10^3uL (1.8-7.7) Lymphocytes # (Auto) 2.2 x10^3/uL (1.0-4.8) Monocytes # (Auto) 0.7 x10^3/uL (0.0-1.1) Eosinophils # (Auto) 0.2 x10^3/uL (0.0-0.7) Basophils # (Auto) 0.1 x10^3/uL (0.0-0.2) Prothrombin Time 14.2 SEC (11.7-14.0) Prothromb Time International Ratio 1.2 (0.8-1.1) Sodium Level 133 mmol/L (136-145) Potassium Level 3.6 mmol/L (3.5-5.1) Chloride Level 98 mmol/L (98-107) Carbon Dioxide Level 23 mmol/L (21-32) Anion Gap 12 (6-14) Blood Urea Nitrogen 5 mg/dL (8-26) Creatinine 0.8 mg/dL (0.7-1.3) Estimated GFR (Cockcroft-Gault) 99.6 BUN/Creatinine Ratio 6 (6-20) Glucose Level 98 mg/dL (70-99) Calcium Level 9.2 mg/dL (8.5-10.1) Total Bilirubin 0.4 mg/dL (0.2-1.0) Aspartate Amino Transf (AST/SGOT) 14 U/L (15-37) Alanine Aminotransferase (ALT/SGPT) 18 U/L (16-63) Alkaline Phosphatase 82 U/L (46-116) Total Protein 6.4 g/dL (6.4-8.2) Albumin 3.4 g/dL (3.4-5.0) Albumin/Globulin Ratio 1.1 (1.0-1.7) Triglycerides Level 77 mg/dL (0-150) Cholesterol Level 196 mg/dL (0-200) LDL Cholesterol, Calculated 130 mg/dL (0-100) VLDL Cholesterol, Calculated 15 mg/dL (0-40) Non-HDL Cholesterol Calculated 145 mg/dL (0-129) HDL Cholesterol 51 mg/dL (40-60) Cholesterol/HDL Ratio 3.8 Prostate Specific Antigen 1.10 ng/mL (0.00-4.00) Vitamin B12 Level 227 pg/mL (247-911) Thyroid Stimulating Hormone (TSH) 2.226 uIU/mL (0.358-3.74) Urine Opiates Screen Neg (NEG) Urine Methadone Screen Neg (NEG) Urine Barbiturates Neg (NEG) Urine Phencyclidine Screen Neg (NEG) Urine Amphetamine/Methamphetamine Neg (NEG) Urine Benzodiazepines Screen Neg (NEG) Urine Cocaine Screen Neg (NEG) Urine Cannabinoids Screen Neg (NEG) Urine Ethyl Alcohol Neg (NEG) SALINAS BRADY MD Jan 01, 2018 18:22
[2018-01-01 19:00] VITALS: BP 144/83
[2018-01-01] MEDS: ACETAMINOPHEN 325 MG TABLET. PO PRN (20:09)
[2018-01-01] MEDS: ATORVASTATIN CALCIUM 40 MG TABLET. PO SCH (20:09)
[2018-01-01] MEDS ORDERED: ATORVASTATIN CALCIUM 20 MG TABLET PO SCH (21:00)
[2018-01-01 23:00] VITALS: BP 149/99
[2018-01-02 03:01] VITALS: BP 126/87
[2018-01-02 05:49] LABS: HEMATOCRIT 37.4 % (39.0-53.0); HEMOGLOBIN 12.9 g/dL (13.0-17.5)
[2018-01-02 07:00] VITALS: BP 132/90
[2018-01-02] MEDS ORDERED: levETIRAcetam 500 MG in IV DEXTROSE 5% 100ML 100 ML IV ONE (08:00)
[2018-01-02] MEDS: PANTOPRAZOLE 40 MG TABLET.DR. PO SCH ×2 (09:10→18:10)
[2018-01-02] MEDS: LISINOPRIL 20 MG TABLET PO SCH (09:10)
[2018-01-02] MEDS: CYCLOBENZAPRINE 10 MG TABLET. PO SCH ×2 (09:11→21:05)
[2018-01-02] MEDS: DOCUSATE SODIUM 100 MG CAPSULE. PO SCH ×2 (09:11→21:00)
[2018-01-02] MEDS: amLODIPine BESYLATE 5 MG TABLET PO SCH (09:12)
[2018-01-02] MEDS: CHOLECALCIFEROL (VITAMIN D3) 1,000 UNIT TABLET PO SCH (09:12)
[2018-01-02] MEDS: ASPIRIN ENTERIC COATED 81 MG TABLET.DR. PO SCH (09:12)
[2018-01-02] MEDS: SENNOSIDES/DOCUSATE 8.6/50MG TABLET. PO SCH ×2 (09:12→21:00)
[2018-01-02] MEDS: CYANOCOBALAMIN (VITAMIN B-12) 1,000 MCG TABLET. PO SCH (09:12)
[2018-01-02] MEDS: CARVEDILOL 3.125 MG TABLET. PO SCH ×2 (09:13→18:10)
[2018-01-02] MEDS: ACETAMINOPHEN 325 MG TABLET. PO PRN ×2 (09:21→18:10)
[2018-01-02] MEDS: IV NORMAL SALINE 1000ML BAG 1,000 ML IV SCH ×2 (10:32→21:42)
[2018-01-02 11:00] VITALS: BP 147/93
--- NOTE | 2018-01-02 11:14 | PDOC ---
Subjective: Subjective: Pt with seizure this am. No rectal bleeding in over a week. Lat BM was Thursday, and he reports no further bleeding. Objective: Vital Signs: Vital Signs Date Time Temp Pulse Resp B/P (MAP) Pulse Ox O2 Delivery O2 Flow Rate FiO2 01/02/18 09:13 68 132/90 01/02/18 07:00 98.1 20 91 Room Air 98.1 Labs: Laboratory Tests Test 01/01/18 15:30 01/02/18 04:25 Urine Opiates Screen Neg (NEG) Urine Methadone Screen Neg (NEG) Urine Barbiturates Neg (NEG) Urine Phencyclidine Screen Neg (NEG) Urine Amphetamine/Methamphetamine Neg (NEG) Urine Benzodiazepines Screen Neg (NEG) Urine Cocaine Screen Neg (NEG) Urine Cannabinoids Screen Neg (NEG) Urine Ethyl Alcohol Neg (NEG) Hemoglobin 12.9 g/dL (13.0-17.5) Hematocrit 37.4 % (39.0-53.0) Mean Corpuscular Hemoglobin Concent 34 g/dL (31-37) Physical Exam: Physical Exam: PE: GEN: NAD HEENT: +neck brace LUNGS: CTAB HEART: RRR ABD: NABS, S/ND/NT EXTREMITY: No edema SKIN: No rashes, no jaundice NEURO/PSYCH: A & O 3 Assessment & Plan: Assessment : A/P: A/P: Syncope, headaches CAD w/ stents, HTN - on ASA GERD, decreased appetite, weight loss Hematochezia - resolved Anemia - low B12 CRC screen - last 11 years ago Neck pain on NSAIDs Plan: Await Neurology input into seizure activity. Per review of notes, question of whether procedure to be done at outside facility as an outpatient. Will await primary team's input into that discussion. Plan for clear liquids tomorrow. Primary- please address whether E/C needs to be done as outpatient as indicated by Dr Galvez's notes DANNY CASTREJON MD Jan 02, 2018 11:14
--- NOTE | 2018-01-02 11:15 | PDOC ---
PROGRESS NOTES Chief Complaint Chief Complaint 1. syncopal episode with hx CAD 2. LOC with loss of bladder continence 3. CAD/ REMOTE VA 4. elevated troponin i 5. ABDOMINAL DISCOMFORT, nonspecific 6. prostatic enlargement by ct 7. RLL nodule, suspect nipple shadow 8. GERD 9. [place] S[facility] History of Present Illness History of Present Illness NO Arrhythmogenic events Echo was good per cardiology- cleared by cards However went into seizures yesterday, known seizures, witnessed by guards, lasted less than 2 minutes Neurology has started Tomy IV MRI of the brain is negative No recurrence of the bleeding in the stool - and for inpatient C scope and EGD by GI on Thursday CT of the abdomen and pelvis done at [place] is negative Hemoglobin stable at 12, no hypotension or tachycardia He claims he got dizzy and lightheaded prior to the syncope. He did lose bladder control Needs to have the cervical collar few more weeks-he came in with that, he had an accident prior to admission Earlier entry: I did speak with Dr. EMA Martinez of the facility, they would prefer that the C scope and EGD would be done as outpatient instead of inpatient, [facility]ing [facility] Plan: Await EEG, C scope EGD plan tentatively thursday SZ prec IV supriyara Vitals Vitals Vital Signs Date Time Temp Pulse Resp B/P (MAP) Pulse Ox O2 Delivery O2 Flow Rate FiO2 01/02/18 09:13 68 132/90 01/02/18 07:00 98.1 20 91 Room Air 98.1 Physical Exam General: Alert, Oriented X3, Cooperative, No acute distress Heart: Regular rate (SR), Normal S1, Normal S2, No murmurs Abdomen: Soft, No tenderness Extremities: No cyanosis, No edema Skin: No breakdown, No significant lesion Labs LABS Laboratory Tests Test 01/01/18 15:30 01/02/18 04:25 Urine Opiates Screen Neg (NEG) Urine Methadone Screen Neg (NEG) Urine Barbiturates Neg (NEG) Urine Phencyclidine Screen Neg (NEG) Urine Amphetamine/Methamphetamine Neg (NEG) Urine Benzodiazepines Screen Neg (NEG) Urine Cocaine Screen Neg (NEG) Urine Cannabinoids Screen Neg (NEG) Urine Ethyl Alcohol Neg (NEG) Hemoglobin 12.9 g/dL (13.0-17.5) Hematocrit 37.4 % (39.0-53.0) Mean Corpuscular Hemoglobin Concent 34 g/dL (31-37) Review of Systems Review of Systems Some headache, tired, the rest of ROS 14 point negative Comment Review of Relevant I have reviewed the following items andree (where applicable) has been applied. Labs Laboratory Tests Test 01/01/18 02:35 01/01/18 04:30 01/01/18 15:30 01/02/18 04:25 Troponin I Quantitative < 0.017 ng/mL (0.000-0.055) < 0.017 ng/mL (0.000-0.055) White Blood Count 9.6 x10^3/uL (4.0-11.0) Red Blood Count 4.08 x10^6/uL (4.30-5.70) Hemoglobin 12.3 g/dL (13.0-17.5) 12.9 g/dL (13.0-17.5) Hematocrit 35.7 % (39.0-53.0) 37.4 % (39.0-53.0) Mean Corpuscular Volume 88 fL (79-100) Mean Corpuscular Hemoglobin 30 pg (25-35) Mean Corpuscular Hemoglobin Concent 35 g/dL (31-37) 34 g/dL (31-37) Red Cell Distribution Width 13.2 % (11.5-14.5) Platelet Count 275 x10^3/uL (140-400) Neutrophils (%) (Auto) 67 % (31-73) Lymphocytes (%) (Auto) 22 % (24-48) Monocytes (%) (Auto) 7 % (0-9) Eosinophils (%) (Auto) 2 % (0-3) Basophils (%) (Auto) 1 % (0-3) Neutrophils # (Auto) 6.5 x10^3uL (1.8-7.7) Lymphocytes # (Auto) 2.2 x10^3/uL (1.0-4.8) Monocytes # (Auto) 0.7 x10^3/uL (0.0-1.1) Eosinophils # (Auto) 0.2 x10^3/uL (0.0-0.7) Basophils # (Auto) 0.1 x10^3/uL (0.0-0.2) Prothrombin Time 14.2 SEC (11.7-14.0) Prothromb Time International Ratio 1.2 (0.8-1.1) Sodium Level 133 mmol/L (136-145) Potassium Level 3.6 mmol/L (3.5-5.1) Chloride Level 98 mmol/L (98-107) Carbon Dioxide Level 23 mmol/L (21-32) Anion Gap 12 (6-14) Blood Urea Nitrogen 5 mg/dL (8-26) Creatinine 0.8 mg/dL (0.7-1.3) Estimated GFR (Cockcroft-Gault) 99.6 BUN/Creatinine Ratio 6 (6-20) Glucose Level 98 mg/dL (70-99) Calcium Level 9.2 mg/dL (8.5-10.1) Total Bilirubin 0.4 mg/dL (0.2-1.0) Aspartate Amino Transf (AST/SGOT) 14 U/L (15-37) Alanine Aminotransferase (ALT/SGPT) 18 U/L (16-63) Alkaline Phosphatase 82 U/L (46-116) Total Protein 6.4 g/dL (6.4-8.2) Albumin 3.4 g/dL (3.4-5.0) Albumin/Globulin Ratio 1.1 (1.0-1.7) Triglycerides Level 77 mg/dL (0-150) Cholesterol Level 196 mg/dL (0-200) LDL Cholesterol, Calculated 130 mg/dL (0-100) VLDL Cholesterol, Calculated 15 mg/dL (0-40) Non-HDL Cholesterol Calculated 145 mg/dL (0-129) HDL Cholesterol 51 mg/dL (40-60) Cholesterol/HDL Ratio 3.8 Prostate Specific Antigen 1.10 ng/mL (0.00-4.00) Vitamin B12 Level 227 pg/mL (247-911) Thyroid Stimulating Hormone (TSH) 2.226 uIU/mL (0.358-3.74) Urine Opiates Screen Neg (NEG) Urine Methadone Screen Neg (NEG) Urine Barbiturates Neg (NEG) Urine Phencyclidine Screen Neg (NEG) Urine Amphetamine/Methamphetamine Neg (NEG) Urine Benzodiazepines Screen Neg (NEG) Urine Cocaine Screen Neg (NEG) Urine Cannabinoids Screen Neg (NEG) Urine Ethyl Alcohol Neg (NEG) Laboratory Tests Test 01/01/18 15:30 01/02/18 04:25 Urine Opiates Screen Neg (NEG) Urine Methadone Screen Neg (NEG) Urine Barbiturates Neg (NEG) Urine Phencyclidine Screen Neg (NEG) Urine Amphetamine/Methamphetamine Neg (NEG) Urine Benzodiazepines Screen Neg (NEG) Urine Cocaine Screen Neg (NEG) Urine Cannabinoids Screen Neg (NEG) Urine Ethyl Alcohol Neg (NEG) Hemoglobin 12.9 g/dL (13.0-17.5) Hematocrit 37.4 % (39.0-53.0) Mean Corpuscular Hemoglobin Concent 34 g/dL (31-37) Medications Current Medications Aspirin (Oliva Aspirin) 325 mg 1X ONCE PO Last administered on 12/31/17at 19:14 ; Start 12/31/17 at 18:45; Stop 12/31/17 at 18:46; Status DC Nitroglycerin (Nitrostat) 0.4 mg PRN Q5MIN PRN SL CHEST PAIN; Start 12/31/17 at 18:45 Acetaminophen (Tylenol) 650 mg PRN Q6HRS PRN PO MILD PAIN / TEMP Last administered on 01/02/18at 09:21; Start 12/31/17 at 18:45 Al Hydroxide/Mg Hydroxide (Mylanta Plus Xs) 30 ml PRN Q4HRS PRN PO HEARTBURN / GAS; Start 12/31/17 at 18:45 Ondansetron HCl (Zofran) 4 mg PRN Q6HRS PRN IV NAUSEA/VOMITING; Start 12/31/17 at 18:45 Prochlorperazine (Compazine) 25 mg PRN Q12HR PRN [place] NAUSEA/VOMITING; Start at 18:45 Zolpidem Tartrate (Ambien) 5 mg PRN QHS PRN PO INSOMNIA Last administered on at 23:40; Start 12/31/17 at 18:45 Enoxaparin Sodium (Lovenox 40mg Syringe) 40 mg Q12HR SQ ; Start 12/31/17 at 21: 00; Status UNV Sodium Chloride (Normal Saline Flush) 3 ml QSHIFT PRN IV AFTER MEDS AND BLOOD DRAWS; Start 12/31/17 at 18:45 Sodium Chloride 1,000 ml @ 100 mls/hr Q10H IV Last administered on 01/02/18at 10:32; Start 12/31/17 at 18:32 Senna/Docusate Sodium (Senna Plus) 1 tab BID PO Last administered on 01/02/18at 09:12; Start 12/31/17 at 21:00 Docusate Sodium (Colace) 100 mg BID PO Last administered on 01/02/18at 09:11; Start 12/31/17 at 21:00 Magnesium Hydroxide (Milk Of Magnesia) 2,400 mg PRN Q12HR PRN PO CONSTIPATION; Start 12/31/17 at 18:45 Bisacodyl (Dulcolax Supp) 10 mg PRN DAILY PRN [place] CONSTIPATION; Start 12/31/17 at 18:45 Enoxaparin Sodium (Lovenox 40mg Syringe) 40 mg Q24H SQ Last administered on at 21:02; Start 12/31/17 at 20:00; Stop 01/01/18 at 09:02; Status DC Lisinopril (Prinivil) 20 mg DAILY PO Last administered on 01/02/18at 09:10; Start 01/01/18 at 09:00 Metoprolol Tartrate (Lopressor) 12.5 mg BID PO Last administered on 01/01/18at 08:21; Start 12/31/17 at 21:00; Stop 01/01/18 at 10:48; Status DC Tramadol HCl (Ultram) 50 mg TID PRN PRN PO MOD-SEVERE PAIN Last administered on 01/01/18at 15:46; Start 12/31/17 at 18:45; Stop 01/02/18 at 07:39; Status DC Vitamin D (Vitamin D3) 1,000 unit DAILY PO Last administered on 01/02/18at 09:12 ; Start 01/01/18 at 09:00 Cyclobenzaprine HCl (Flexeril) 5 mg BID PO Last administered on 01/02/18at 09:11 ; Start 12/31/17 at 21:00 Ibuprofen (Motrin) 800 mg PRN Q8HRS PRN PO INFLAMMATION Last administered on at 00:07; Start 12/31/17 at 19:00; Stop 01/01/18 at 09:02; Status DC Famotidine (Pepcid) 20 mg BID PO Last administered on 01/01/18at 08:19; Start at 21:00; Stop 01/01/18 at 11:14; Status DC Lorazepam (Ativan) 2 mg PRN Q4HRS PRN IV ANXIETY / AGITATION; Start 12/31/17 at 18:45 Labetalol HCl (Normodyne Iv Push) 20 mg PRN Q2HR PRN IVP HYPERTENSION, SEE COMMENTS; Start 01/01/18 at 09:15; Stop 01/01/18 at 10:48; Status DC Atorvastatin Calcium (Lipitor) 20 mg QHS PO ; Start 01/01/18 at 21:00; Stop at 21:00; Status DC Atorvastatin Calcium (Lipitor) 40 mg QHS PO Last administered on 01/01/18at 20: 09; Start 01/01/18 at 21:00 Carvedilol (Coreg) 3.125 mg BIDWMEALS PO Last administered on 01/02/18at 09:13; Start 01/01/18 at 17:00 Aspirin (Ecotrin) 81 mg DAILYWBKFT PO Last administered on 01/02/18at 09:12; Start 01/01/18 at 11:30 Amlodipine Besylate (Norvasc) 5 mg DAILY PO Last administered on 01/02/18at 09: 12; Start 01/01/18 at 11:30 Cyanocobalamin (Vitamin B-12) 1,000 mcg DAILY PO Last administered on at 09:12; Start 01/01/18 at 12:00 Pantoprazole Sodium (Protonix) 40 mg BIDAC PO Last administered on 01/02/18at 09 :10; Start 01/01/18 at 16:30 Levetiracetam 500 mg/Dextrose 105 ml @ 420 mls/hr 1X ONCE IV Last administered on 01/02/18at 09:13; Start 01/02/18 at 08:00; Stop 01/02/18 at 08:14 ; Status DC Levetiracetam (Keppra) 500 mg BID PO ; Start 01/02/18 at 21:00 Active Scripts Active Reported Cyclobenzaprine Hcl 5 Mg Tablet 1 Tab PO BID Vitamin D (Cholecalciferol (Vitamin D3)) 1,000 Unit Capsule 1 Cap PO DAILY Tramadol Hcl 50 Mg Tablet 50 Mg PO TID PRN PRN Ranitidine Hcl 150 Mg Tablet 1 Tab PO BID Lisinopril 20 Mg Tablet 1 Tab PO DAILY Metoprolol Tartrate 25 Mg Tablet 0.5 Tab PO BID Ibuprofen 800 Mg Tablet 800 Mg PO TID PRN Vitals/I & O Vital Sign - Last 24 Hours 01/01/18 01/01/18 01/01/18 01/01/18 12:48 15:00 15:46 16:35 Temp 97.9 97.9 Pulse 65 67 67 Resp 18 B/P (MAP) 174/104 148/91 (110) 148/91 Pulse Ox 96 O2 Delivery Room Air Room Air 01/01/18 01/01/18 01/01/18 01/01/18 16:50 19:00 20:00 23:00 Temp 97.8 96.6 97.8 96.6 Pulse 64 60 Resp 20 20 B/P (MAP) 144/83 (103) 149/99 (116) Pulse Ox 96 98 O2 Delivery Room Air Room Air Room Air Room Air 01/02/18 01/02/18 01/02/18 01/02/18 03:01 07:00 09:10 09:12 Temp 97.5 98.1 97.5 98.1 Pulse 70 68 68 68 Resp 20 20 B/P (MAP) 126/87 (100) 132/90 (104) 132/90 132/90 Pulse Ox 96 91 O2 Delivery Room Air Room Air 01/02/18 09:13 Pulse 68 B/P (MAP) 132/90 Intake and Output 01/01/18 01/01/18 01/02/18 15:00 23:00 07:00 Intake Total 1800 ml Balance 1800 ml Nutrition Consultation Dietary Evaluation: Recommendations by RD: PPN/TPN Comments: REC cardiac/soft diet REC Ensure w/lunch and dinner, all flavors Expected Outcomes/Goals: PO intake to meet >75% est needs Interpretation of weight loss: >5% in 1 month Malnutrition Findings: Food and Nutrition Intake (Mod: <75% est energy req 7days Weight Status: Appropriate MARTITA QUIROS MD Jan 02, 2018 11:15
--- NOTE | 2018-01-02 13:30 | EEG ---
DATE OF SERVICE: 01/02/2018 ATTENDING PHYSICIAN: Dr. Parr. EEG NUMBER [id number]. OBJECTIVE: The patient is a 57-year-old male with seizures. DESCRIPTION: This is a digital study. Electrodes are placed according to the international 10-20 system. Bipolar and referential montages are available. Activation procedures typically include hyperventilation and intermittent photic stimulation. INTERPRETATION: The waking background consists of 9-10 Hz, 50-100 microvolt activity, symmetrically distributed over parietooccipital regions and reactive to eye opening. Hyperventilation and intermittent photic stimulation are noncontributory. Stage 1 sleep is achieved with normal electroencephalogram patterns. IMPRESSION: This electroencephalogram with the patient awake and asleep is within normal limits. There is no focal, paroxysmal, or epileptiform activity. Thank you for letting us help with the patient's care. GUZMAN DENNIS MD DR: [place]/marti JOB#: [id number] / [id number]
--- NOTE | 2018-01-02 13:57 | PDOC ---
PROGRESS NOTES Assessment Syncopal spell vs seizure, had another witnessed seizure this morning. He describes seizure episodes out 6 months ago EEG this morning is normal Plan I have started the patient on levetiracetam and discussed side effects. Observe overnight, aim for discharge tomorrow Subjective no complaints Objective Vital Signs Date Time Temp Pulse Resp B/P (MAP) Pulse Ox O2 Delivery O2 Flow Rate FiO2 01/02/18 11:00 98.0 65 20 147/93 (111) 96 Room Air 98.0 Intake and Output 01/02/18 07:00 Intake Total 1800 ml Balance 1800 ml Intake Oral 800 ml IV Total 1000 ml # Voids 5 PHYSICAL EXAM Alert. Oriented to time, place and person. PERRL. EOMI. CN: no focal findings. Muscle tone: normal. Muscle strength: 5/5 DTR: 2+ Plantar reflex: flexor Gait: not examined in bed. Sensory exam: no abnormal findings. No cerebellar signs elicited. Review of Relevant I have reviewed the following items andree (where applicable) has been applied. Labs Laboratory Tests Test 01/01/18 02:35 01/01/18 04:30 01/01/18 15:30 01/02/18 04:25 Troponin I Quantitative < 0.017 ng/mL (0.000-0.055) < 0.017 ng/mL (0.000-0.055) White Blood Count 9.6 x10^3/uL (4.0-11.0) Red Blood Count 4.08 x10^6/uL (4.30-5.70) Hemoglobin 12.3 g/dL (13.0-17.5) 12.9 g/dL (13.0-17.5) Hematocrit 35.7 % (39.0-53.0) 37.4 % (39.0-53.0) Mean Corpuscular Volume 88 fL (79-100) Mean Corpuscular Hemoglobin 30 pg (25-35) Mean Corpuscular Hemoglobin Concent 35 g/dL (31-37) 34 g/dL (31-37) Red Cell Distribution Width 13.2 % (11.5-14.5) Platelet Count 275 x10^3/uL (140-400) Neutrophils (%) (Auto) 67 % (31-73) Lymphocytes (%) (Auto) 22 % (24-48) Monocytes (%) (Auto) 7 % (0-9) Eosinophils (%) (Auto) 2 % (0-3) Basophils (%) (Auto) 1 % (0-3) Neutrophils # (Auto) 6.5 x10^3uL (1.8-7.7) Lymphocytes # (Auto) 2.2 x10^3/uL (1.0-4.8) Monocytes # (Auto) 0.7 x10^3/uL (0.0-1.1) Eosinophils # (Auto) 0.2 x10^3/uL (0.0-0.7) Basophils # (Auto) 0.1 x10^3/uL (0.0-0.2) Prothrombin Time 14.2 SEC (11.7-14.0) Prothromb Time International Ratio 1.2 (0.8-1.1) Sodium Level 133 mmol/L (136-145) Potassium Level 3.6 mmol/L (3.5-5.1) Chloride Level 98 mmol/L (98-107) Carbon Dioxide Level 23 mmol/L (21-32) Anion Gap 12 (6-14) Blood Urea Nitrogen 5 mg/dL (8-26) Creatinine 0.8 mg/dL (0.7-1.3) Estimated GFR (Cockcroft-Gault) 99.6 BUN/Creatinine Ratio 6 (6-20) Glucose Level 98 mg/dL (70-99) Calcium Level 9.2 mg/dL (8.5-10.1) Total Bilirubin 0.4 mg/dL (0.2-1.0) Aspartate Amino Transf (AST/SGOT) 14 U/L (15-37) Alanine Aminotransferase (ALT/SGPT) 18 U/L (16-63) Alkaline Phosphatase 82 U/L (46-116) Total Protein 6.4 g/dL (6.4-8.2) Albumin 3.4 g/dL (3.4-5.0) Albumin/Globulin Ratio 1.1 (1.0-1.7) Triglycerides Level 77 mg/dL (0-150) Cholesterol Level 196 mg/dL (0-200) LDL Cholesterol, Calculated 130 mg/dL (0-100) VLDL Cholesterol, Calculated 15 mg/dL (0-40) Non-HDL Cholesterol Calculated 145 mg/dL (0-129) HDL Cholesterol 51 mg/dL (40-60) Cholesterol/HDL Ratio 3.8 Prostate Specific Antigen 1.10 ng/mL (0.00-4.00) Vitamin B12 Level 227 pg/mL (247-911) Thyroid Stimulating Hormone (TSH) 2.226 uIU/mL (0.358-3.74) Urine Opiates Screen Neg (NEG) Urine Methadone Screen Neg (NEG) Urine Barbiturates Neg (NEG) Urine Phencyclidine Screen Neg (NEG) Urine Amphetamine/Methamphetamine Neg (NEG) Urine Benzodiazepines Screen Neg (NEG) Urine Cocaine Screen Neg (NEG) Urine Cannabinoids Screen Neg (NEG) Urine Ethyl Alcohol Neg (NEG) Laboratory Tests Test 01/01/18 15:30 01/02/18 04:25 Urine Opiates Screen Neg (NEG) Urine Methadone Screen Neg (NEG) Urine Barbiturates Neg (NEG) Urine Phencyclidine Screen Neg (NEG) Urine Amphetamine/Methamphetamine Neg (NEG) Urine Benzodiazepines Screen Neg (NEG) Urine Cocaine Screen Neg (NEG) Urine Cannabinoids Screen Neg (NEG) Urine Ethyl Alcohol Neg (NEG) Hemoglobin 12.9 g/dL (13.0-17.5) Hematocrit 37.4 % (39.0-53.0) Mean Corpuscular Hemoglobin Concent 34 g/dL (31-37) Medications Current Medications Aspirin ([employer] Aspirin) 325 mg 1X ONCE PO Last administered on 12/31/17at 19:14 ; Start 12/31/17 at 18:45; Stop 12/31/17 at 18:46; Status DC Nitroglycerin (Nitrostat) 0.4 mg PRN Q5MIN PRN SL CHEST PAIN; Start 12/31/17 at 18:45 Acetaminophen (Tylenol) 650 mg PRN Q6HRS PRN PO MILD PAIN / TEMP Last administered on 01/02/18at 09:21; Start 12/31/17 at 18:45 Al Hydroxide/Mg Hydroxide (Mylanta Plus Xs) 30 ml PRN Q4HRS PRN PO HEARTBURN / GAS; Start 12/31/17 at 18:45 Ondansetron HCl (Zofran) 4 mg PRN Q6HRS PRN IV NAUSEA/VOMITING; Start 12/31/17 at 18:45 Prochlorperazine (Compazine) 25 mg PRN Q12HR PRN [place] NAUSEA/VOMITING; Start at 18:45 Zolpidem Tartrate (Ambien) 5 mg PRN QHS PRN PO INSOMNIA Last administered on at 23:40; Start 12/31/17 at 18:45 Enoxaparin Sodium (Lovenox 40mg Syringe) 40 mg Q12HR SQ ; Start 12/31/17 at 21: 00; Status UNV Sodium Chloride (Normal Saline Flush) 3 ml QSHIFT PRN IV AFTER MEDS AND BLOOD DRAWS; Start 12/31/17 at 18:45 Sodium Chloride 1,000 ml @ 100 mls/hr Q10H IV Last administered on 01/02/18at 10:32; Start 12/31/17 at 18:32 Senna/Docusate Sodium (Senna Plus) 1 tab BID PO Last administered on 01/02/18at 09:12; Start 12/31/17 at 21:00 Docusate Sodium (Colace) 100 mg BID PO Last administered on 01/02/18at 09:11; Start 12/31/17 at 21:00 Magnesium Hydroxide (Milk Of Magnesia) 2,400 mg PRN Q12HR PRN PO CONSTIPATION; Start 12/31/17 at 18:45 Bisacodyl (Dulcolax Supp) 10 mg PRN DAILY PRN [place] CONSTIPATION; Start 12/31/17 at 18:45 Enoxaparin Sodium (Lovenox 40mg Syringe) 40 mg Q24H SQ Last administered on at 21:02; Start 12/31/17 at 20:00; Stop 01/01/18 at 09:02; Status DC Lisinopril (Prinivil) 20 mg DAILY PO Last administered on 01/02/18at 09:10; Start 01/01/18 at 09:00 Metoprolol Tartrate (Lopressor) 12.5 mg BID PO Last administered on 01/01/18at 08:21; Start 12/31/17 at 21:00; Stop 01/01/18 at 10:48; Status DC Tramadol HCl (Ultram) 50 mg TID PRN PRN PO MOD-SEVERE PAIN Last administered on 01/01/18at 15:46; Start 12/31/17 at 18:45; Stop 01/02/18 at 07:39; Status DC Vitamin D (Vitamin D3) 1,000 unit DAILY PO Last administered on 01/02/18 09:12 ; Start 01/01/18 at 09:00 Cyclobenzaprine HCl (Flexeril) 5 mg BID PO Last administered on 01/02/18 09:11 ; Start 12/31/17 at 21:00 Ibuprofen (Motrin) 800 mg PRN Q8HRS PRN PO INFLAMMATION Last administered on at 00:07; Start 12/31/17 at 19:00; Stop 01/01/18 at 09:02; Status DC Famotidine (Pepcid) 20 mg BID PO Last administered on 01/01/18at 08:19; Start at 21:00; Stop 01/01/18 at 11:14; Status DC Lorazepam (Ativan) 2 mg PRN Q4HRS PRN IV ANXIETY / AGITATION; Start 12/31/17 at 18:45 Labetalol HCl (Normodyne Iv Push) 20 mg PRN Q2HR PRN IVP HYPERTENSION, SEE COMMENTS; Start 01/01/18 at 09:15; Stop 01/01/18 at 10:48; Status DC Atorvastatin Calcium (Lipitor) 20 mg QHS PO ; Start 01/01/18 at 21:00; Stop at 21:00; Status DC Atorvastatin Calcium (Lipitor) 40 mg QHS PO Last administered on 01/01/18at 20: 09; Start 01/01/18 at 21:00 Carvedilol (Coreg) 3.125 mg BIDWMEALS PO Last administered on 01/02/18at 09:13; Start 01/01/18 at 17:00 Aspirin (Ecotrin) 81 mg DAILYWBKFT PO Last administered on 01/02/18 09:12; Start 01/01/18 at 11:30 Amlodipine Besylate (Norvasc) 5 mg DAILY PO Last administered on 01/02/18 09: 12; Start 01/01/18 at 11:30 Cyanocobalamin (Vitamin B-12) 1,000 mcg DAILY PO Last administered on 09:12; Start 01/01/18 at 12:00 Pantoprazole Sodium (Protonix) 40 mg BIDAC PO Last administered on 9/15/18at 09 :10; Start 01/01/18 at 16:30 Levetiracetam 500 mg/Dextrose 105 ml @ 420 mls/hr 1X ONCE IV Last administered on 01/02/18at 09:13; Start 01/02/18 at 08:00; Stop 01/02/18 at 08:14 ; Status DC Levetiracetam (Keppra) 500 mg BID PO ; Start 01/02/18 at 21:00 Active Scripts Active Reported Cyclobenzaprine Hcl 5 Mg Tablet 1 Tab PO BID Vitamin D (Cholecalciferol (Vitamin D3)) 1,000 Unit Capsule 1 Cap PO DAILY Tramadol Hcl 50 Mg Tablet 50 Mg PO TID PRN PRN Ranitidine Hcl 150 Mg Tablet 1 Tab PO BID Lisinopril 20 Mg Tablet 1 Tab PO DAILY Metoprolol Tartrate 25 Mg Tablet 0.5 Tab PO BID Ibuprofen 800 Mg Tablet 800 Mg PO TID PRN Vitals/I & O Vital Sign - Last 24 Hours 01/01/18 01/01/18 01/01/18 01/01/18 15:00 15:46 16:35 16:50 Temp 97.9 97.9 Pulse 67 67 Resp 18 B/P (MAP) 148/91 (110) 148/91 Pulse Ox 96 O2 Delivery Room Air Room Air Room Air 01/01/18 01/01/18 01/01/18 01/02/18 19:00 20:00 23:00 03:01 Temp 97.8 96.6 97.5 97.8 96.6 97.5 Pulse 64 60 70 Resp 20 20 20 B/P (MAP) 144/83 (103) 149/99 (116) 126/87 (100) Pulse Ox 96 98 96 O2 Delivery Room Air Room Air Room Air Room Air 01/02/18 01/02/18 01/02/18 01/02/18 07:00 09:10 09:12 09:13 Temp 98.1 98.1 Pulse 68 68 68 68 Resp 20 B/P (MAP) 132/90 (104) 132/90 132/90 132/90 Pulse Ox 91 O2 Delivery Room Air 01/02/18 11:00 Temp 98.0 98.0 Pulse 65 Resp 20 B/P (MAP) 147/93 (111) Pulse Ox 96 O2 Delivery Room Air Intake and Output 901/01/18 01/02/18 15:00 23:00 07:00 Intake Total 1800 ml Balance 1800 ml GUZMAN DENNIS MD Jan 02, 2018 13:57
[2018-01-02 14:57] VITALS: BP 141/69
[2018-01-02 19:00] VITALS: BP 138/69
[2018-01-02] MEDS: levETIRAcetam 500 MG TABLET PO SCH (21:04)
[2018-01-02] MEDS: ATORVASTATIN CALCIUM 40 MG TABLET. PO SCH (21:04)
[2018-01-02] MEDS: traMADol 50 MG TABLET PO PRN (21:41)
[2018-01-02 23:00] VITALS: BP 155/79
[2018-01-03] VITALS (7 sets, daily range): BP systolic 136–175; BP diastolic 93–108
[2018-01-03] MEDS: ACETAMINOPHEN 325 MG TABLET. PO PRN (06:50)
[2018-01-03] MEDS: ASPIRIN ENTERIC COATED 81 MG TABLET.DR. PO SCH (08:00)
[2018-01-03] MEDS: levETIRAcetam 500 MG TABLET PO SCH ×2 (08:32→21:45)
[2018-01-03] MEDS: DOCUSATE SODIUM 100 MG CAPSULE. PO SCH ×2 (08:32→21:00)
[2018-01-03] MEDS: CHOLECALCIFEROL (VITAMIN D3) 1,000 UNIT TABLET PO SCH (08:32)
[2018-01-03] MEDS: CYANOCOBALAMIN (VITAMIN B-12) 1,000 MCG TABLET. PO SCH (08:32)
[2018-01-03] MEDS: SENNOSIDES/DOCUSATE 8.6/50MG TABLET. PO SCH ×2 (08:32→21:00)
[2018-01-03] MEDS: amLODIPine BESYLATE 5 MG TABLET PO SCH (08:32)
[2018-01-03] MEDS: CARVEDILOL 3.125 MG TABLET. PO SCH ×2 (08:33→16:23)
[2018-01-03] MEDS: CYCLOBENZAPRINE 10 MG TABLET. PO SCH ×2 (08:33→21:46)
[2018-01-03] MEDS: LISINOPRIL 20 MG TABLET PO SCH (08:33)
[2018-01-03] MEDS: PANTOPRAZOLE 40 MG TABLET.DR. PO SCH ×2 (08:33→16:22)
[2018-01-03] MEDS: IV NORMAL SALINE 1000ML BAG 1,000 ML IV SCH ×2 (08:36→16:23)
[2018-01-03] MEDS: traMADol 50 MG TABLET PO PRN ×3 (08:40→21:45)
--- NOTE | 2018-01-03 11:50 | PDOC ---
PROGRESS NOTES Chief Complaint Chief Complaint 1. syncopal episode with hx CAD 2. LOC with loss of bladder continence 3. CAD/ REMOTE [place] 4. elevated troponin i 5. ABDOMINAL DISCOMFORT, nonspecific 6. prostatic enlargement by ct 7. RLL nodule, suspect nipple shadow 8. GERD 9. [facility] 10. NON injury fall 01/03 History of Present Illness History of Present Illness I'll by RN 7:30 in the morning because of noninjury fall today Some of the cords and his IV line got tangled up with his shock also hence fell , no LOC. No broken bones but left lateral hand a little bit swollen, some skin tear on right almaguer, right neck pain a little bit of redness but full range of motion NO Arrhythmogenic events Echo was good per cardiology- cleared by cards However went into seizures thursday, known seizures, witnessed by guards, lasted less than 2 minutes Neurology has started [facility] MRI of the brain is negative No recurrence of the bleeding in the stool - and for inpatient C scope and EGD by GI on Thursday CT of the abdomen and pelvis done at [facility] is negative Hemoglobin stable at 12, no hypotension or tachycardia He claims he got dizzy and lightheaded prior to the syncope. He did lose bladder control Off cervical collar - accident [employer] Earlier entry: I did speak with Dr. EMA Martinez of the facility, they would prefer that the C scope and EGD would be done as outpatient instead of inpatient, [facility]ing [facility] Plan: Await EEG, C scope EGD plan tentatively thursday SZ prec IV tomy NPO post MN for EGD and c scope as per GI note last thu Vitals Vitals Vital Signs Date Time Temp Pulse Resp B/P (MAP) Pulse Ox O2 Delivery O2 Flow Rate FiO2 01/03/18 09:45 Room Air 01/03/18 08:33 63 175/108 01/03/18 08:08 97.9 18 99 97.9 Physical Exam General: Alert, Oriented X3, Cooperative, No acute distress Heart: Regular rate (SR), Normal S1, Normal S2, No murmurs Abdomen: Soft, No tenderness Extremities: No cyanosis, No edema Skin: No breakdown, No significant lesion Review of Systems Review of Systems neg 14 pt systems , a little bit sore from the fall otherwise negative Comment Review of Relevant I have reviewed the following items andree (where applicable) has been applied. Labs Laboratory Tests Test 01/01/18 15:30 01/02/18 04:25 Urine Opiates Screen Neg (NEG) Urine Methadone Screen Neg (NEG) Urine Barbiturates Neg (NEG) Urine Phencyclidine Screen Neg (NEG) Urine Amphetamine/Methamphetamine Neg (NEG) Urine Benzodiazepines Screen Neg (NEG) Urine Cocaine Screen Neg (NEG) Urine Cannabinoids Screen Neg (NEG) Urine Ethyl Alcohol Neg (NEG) Hemoglobin 12.9 g/dL (13.0-17.5) Hematocrit 37.4 % (39.0-53.0) Mean Corpuscular Hemoglobin Concent 34 g/dL (31-37) Medications Current Medications Aspirin (Oliva Aspirin) 325 mg 1X ONCE PO Last administered on 12/31/17at 19:14 ; Start 12/31/17 at 18:45; Stop 12/31/17 at 18:46; Status DC Nitroglycerin (Nitrostat) 0.4 mg PRN Q5MIN PRN SL CHEST PAIN; Start 12/31/17 at 18:45 Acetaminophen (Tylenol) 650 mg PRN Q6HRS PRN PO MILD PAIN / TEMP Last administered on 01/03/18at 06:50; Start 12/31/17 at 18:45 Al Hydroxide/Mg Hydroxide (Mylanta Plus Xs) 30 ml PRN Q4HRS PRN PO HEARTBURN / GAS; Start 12/31/17 at 18:45 Ondansetron HCl (Zofran) 4 mg PRN Q6HRS PRN IV NAUSEA/VOMITING; Start 12/31/17 at 18:45 Prochlorperazine (Compazine) 25 mg PRN Q12HR PRN [place] NAUSEA/VOMITING; Start at 18:45 Zolpidem Tartrate (Ambien) 5 mg PRN QHS PRN PO INSOMNIA Last administered on at 23:40; Start 12/31/17 at 18:45 Enoxaparin Sodium (Lovenox 40mg Syringe) 40 mg Q12HR SQ ; Start 12/31/17 at 21: 00; Status UNV Sodium Chloride (Normal Saline Flush) 3 ml QSHIFT PRN IV AFTER MEDS AND BLOOD DRAWS; Start 12/31/17 at 18:45 Sodium Chloride 1,000 ml @ 100 mls/hr Q10H IV Last administered on 01/03/18at 08:36; Start 12/31/17 at 18:32 Senna/Docusate Sodium (Senna Plus) 1 tab BID PO Last administered on 01/03/18at 08:32; Start 12/31/17 at 21:00 Docusate Sodium (Colace) 100 mg BID PO Last administered on 01/03/18at 08:32; Start 12/31/17 at 21:00 Magnesium Hydroxide (Milk Of Magnesia) 2,400 mg PRN Q12HR PRN PO CONSTIPATION; Start 12/31/17 at 18:45 Bisacodyl (Dulcolax Supp) 10 mg PRN DAILY PRN [place] CONSTIPATION; Start 12/31/17 at 18:45 Enoxaparin Sodium (Lovenox 40mg Syringe) 40 mg Q24H SQ Last administered on at 21:02; Start 12/31/17 at 20:00; Stop 01/01/18 at 09:02; Status DC Lisinopril (Prinivil) 20 mg DAILY PO Last administered on 01/03/18at 08:33; Start 01/01/18 at 09:00 Metoprolol Tartrate (Lopressor) 12.5 mg BID PO Last administered on 01/01/18at 08:21; Start 12/31/17 at 21:00; Stop 01/01/18 at 10:48; Status DC Tramadol HCl (Ultram) 50 mg TID PRN PRN PO MOD-SEVERE PAIN Last administered on 01/01/18at 15:46; Start 12/31/17 at 18:45; Stop 01/02/18 at 07:39; Status DC Vitamin D (Vitamin D3) 1,000 unit DAILY PO Last administered on 01/03/18 08:32 ; Start 01/01/18 at 09:00 Cyclobenzaprine HCl (Flexeril) 5 mg BID PO Last administered on 01/03/18at 08:33 ; Start 12/31/17 at 21:00 Ibuprofen (Motrin) 800 mg PRN Q8HRS PRN PO INFLAMMATION Last administered on at 00:07; Start 12/31/17 at 19:00; Stop 01/01/18 at 09:02; Status DC Famotidine (Pepcid) 20 mg BID PO Last administered on 01/01/18at 08:19; Start at 21:00; Stop 01/01/18 at 11:14; Status DC Lorazepam (Ativan) 2 mg PRN Q4HRS PRN IV ANXIETY / AGITATION; Start 12/31/17 at 18:45 Labetalol HCl (Normodyne Iv Push) 20 mg PRN Q2HR PRN IVP HYPERTENSION, SEE COMMENTS; Start 01/01/18 at 09:15; Stop 01/01/18 at 10:48; Status DC Atorvastatin Calcium (Lipitor) 20 mg QHS PO ; Start 01/01/18 at 21:00; Stop at 21:00; Status DC Atorvastatin Calcium (Lipitor) 40 mg QHS PO Last administered on 01/02/18at 21: 04; Start 01/01/18 at 21:00 Carvedilol (Coreg) 3.125 mg BIDWMEALS PO Last administered on 01/03/18at 08:33; Start 01/01/18 at 17:00 Aspirin (Ecotrin) 81 mg DAILYWBKFT PO Last administered on 01/02/18at 09:12; Start 01/01/18 at 11:30 Amlodipine Besylate (Norvasc) 5 mg DAILY PO Last administered on 01/03/18 08: 32; Start 01/01/18 at 11:30 Cyanocobalamin (Vitamin B-12) 1,000 mcg DAILY PO Last administered on at 08:32; Start 01/01/18 at 12:00 Pantoprazole Sodium (Protonix) 40 mg BIDAC PO Last administered on 01/03/18at 08 :33; Start 01/01/18 at 16:30 Levetiracetam 500 mg/Dextrose 105 ml @ 420 mls/hr 1X ONCE IV Last administered on 01/02/18at 09:13; Start 01/02/18 at 08:00; Stop 01/02/18 at 08:14 ; Status DC Levetiracetam (Keppra) 500 mg BID PO Last administered on 01/03/18at 08:32; Start 01/02/18 at 21:00 Tramadol HCl (Ultram) 50 mg PRN Q6HRS PRN PO MODERATE PAIN Last administered on 01/03/18at 08:40; Start 01/02/18 at 21:30 Active Scripts Active Reported Cyclobenzaprine Hcl 5 Mg Tablet 1 Tab PO BID Vitamin D (Cholecalciferol (Vitamin D3)) 1,000 Unit Capsule 1 Cap PO DAILY Tramadol Hcl 50 Mg Tablet 50 Mg PO TID PRN PRN Ranitidine Hcl 150 Mg Tablet 1 Tab PO BID Lisinopril 20 Mg Tablet 1 Tab PO DAILY Metoprolol Tartrate 25 Mg Tablet 0.5 Tab PO BID Ibuprofen 800 Mg Tablet 800 Mg PO TID PRN Vitals/I & O Vital Sign - Last 24 Hours 01/02/18 01/02/18 01/02/18 01/02/18 14:57 18:10 19:00 20:00 Temp 97.9 97.9 97.9 97.9 Pulse 80 80 66 Resp 20 18 B/P (MAP) 141/69 (93) 141/69 138/69 (92) Pulse Ox 95 95 O2 Delivery Room Air Room Air Room Air 01/02/18 01/02/18 01/03/18 01/03/18 21:41 23:00 02:40 06:30 Temp 97.9 97.8 97.3 97.9 97.8 97.3 Pulse 67 63 60 Resp 18 18 18 B/P (MAP) 155/79 (104) 136/99 (111) 170/108 (128) Pulse Ox 96 96 96 O2 Delivery Room Air Room Air Room Air Room Air 01/03/18 01/03/18 01/03/18 01/03/18 08:08 08:32 08:33 08:33 Temp 97.9 97.9 Pulse 63 63 63 63 Resp 18 B/P (MAP) 175/108 (130) 175/108 175/108 175/108 Pulse Ox 99 O2 Delivery Room Air 01/03/18 01/03/18 08:40 09:45 O2 Delivery Room Air Room Air Intake and Output 01/02/18 01/02/18 01/03/18 15:00 23:00 07:00 Intake Total 1080 ml 1250 ml 600 ml Balance 1080 ml 1250 ml 600 ml Nutrition Consultation Dietary Evaluation: Recommendations by RD: PPN/TPN Comments: REC cardiac/soft diet REC Ensure w/lunch and dinner, all flavors Expected Outcomes/Goals: PO intake to meet >75% est needs Interpretation of weight loss: >5% in 1 month Malnutrition Findings: Food and Nutrition Intake (Mod: <75% est energy req 7days Weight Status: Appropriate MARTITA QUIROS MD Jan 03, 2018 11:50
--- NOTE | 2018-01-03 13:56 | PDOC ---
Subjective: Subjective: Events noted Objective: Vital Signs: Vital Signs Date Time Temp Pulse Resp B/P (MAP) Pulse Ox O2 Delivery O2 Flow Rate FiO2 01/03/18 11:00 97.8 64 18 148/94 (112) 99 Room Air 97.8 Labs: no new labs Physical Exam: Physical Exam: GEN: NAD HEENT: OP clear CV: S1S2 without murmurs, rubs, or gallops RESP: CTAB without wheezing, rhonchi, or crackles ABD: NABS, SNT/ND EXT: No edema NEURO: AAO x 3 Assessment & Plan: Assessment : A/P: A/P: Syncope, headaches CAD w/ stents, HTN - on ASA GERD, decreased appetite, weight loss Hematochezia - resolved Anemia - low B12 CRC screen - last 11 years ago Neck pain on NSAIDs Plan: D/w Dr higgins, patient and guards. Pt concerned about having EGD/Colon done at facility and wants inpatient scopes. Will discuss with Propeck at 5 pm and let him know. For now, plan for in patient scopes DANNY CASTREJON MD Jan 03, 2018 13:56
[2018-01-03] MEDS ORDERED: BISACODYL 5 MG TABLET.DR. PO ONE (14:00)
--- NOTE | 2018-01-03 14:02 | PDOC ---
PROGRESS NOTES Assessment Syncopal spell vs seizure, had another witnessed seizure 01/02 morning, none further. He describes seizure episodes out 6 months ago EEG normal, no epileptic activity Plan Levetiracetam Note plans for EGD tomorrow Okay to discharge from neurology perspective Subjective No further seizures Objective Vital Signs Date Time Temp Pulse Resp B/P (MAP) Pulse Ox O2 Delivery O2 Flow Rate FiO2 01/03/18 11:00 97.8 64 18 148/94 (112) 99 Room Air 97.8 Intake and Output 01/03/18 07:00 Intake Total 2930 ml Balance 2930 ml Intake Oral 2930 ml # Voids 8 PHYSICAL EXAM Alert. Oriented to time, place and person. PERRL. EOMI. CN: no focal findings. Muscle tone: normal. Muscle strength: 5/5 DTR: 2+ Plantar reflex: flexor Gait: not examined in bed. Sensory exam: no abnormal findings. No cerebellar signs elicited. Review of Relevant I have reviewed the following items andree (where applicable) has been applied. Labs Laboratory Tests Test 01/01/18 15:30 01/02/18 04:25 Urine Opiates Screen Neg (NEG) Urine Methadone Screen Neg (NEG) Urine Barbiturates Neg (NEG) Urine Phencyclidine Screen Neg (NEG) Urine Amphetamine/Methamphetamine Neg (NEG) Urine Benzodiazepines Screen Neg (NEG) Urine Cocaine Screen Neg (NEG) Urine Cannabinoids Screen Neg (NEG) Urine Ethyl Alcohol Neg (NEG) Hemoglobin 12.9 g/dL (13.0-17.5) Hematocrit 37.4 % (39.0-53.0) Mean Corpuscular Hemoglobin Concent 34 g/dL (31-37) Medications Current Medications Aspirin (Oliva Aspirin) 325 mg 1X ONCE PO Last administered on 12/31/17at 19:14 ; Start 12/31/17 at 18:45; Stop 12/31/17 at 18:46; Status DC Nitroglycerin (Nitrostat) 0.4 mg PRN Q5MIN PRN SL CHEST PAIN; Start 12/31/17 at 18:45 Acetaminophen (Tylenol) 650 mg PRN Q6HRS PRN PO MILD PAIN / TEMP Last administered on 01/03/18at 06:50; Start 12/31/17 at 18:45 Al Hydroxide/Mg Hydroxide (Mylanta Plus Xs) 30 ml PRN Q4HRS PRN PO HEARTBURN / GAS; Start 12/31/17 at 18:45 Ondansetron HCl (Zofran) 4 mg PRN Q6HRS PRN IV NAUSEA/VOMITING; Start 12/31/17 at 18:45 Prochlorperazine (Compazine) 25 mg PRN Q12HR PRN [place] NAUSEA/VOMITING; Start at 18:45 Zolpidem Tartrate (Ambien) 5 mg PRN QHS PRN PO INSOMNIA Last administered on at 23:40; Start 12/31/17 at 18:45 Enoxaparin Sodium (Lovenox 40mg Syringe) 40 mg Q12HR SQ ; Start 12/31/17 at 21: 00; Status UNV Sodium Chloride (Normal Saline Flush) 3 ml QSHIFT PRN IV AFTER MEDS AND BLOOD DRAWS; Start 12/31/17 at 18:45 Sodium Chloride 1,000 ml @ 100 mls/hr Q10H IV Last administered on 01/03/18at 08:36; Start 12/31/17 at 18:32 Senna/Docusate Sodium (Senna Plus) 1 tab BID PO Last administered on 01/03/18 08:32; Start 12/31/17 at 21:00 Docusate Sodium (Colace) 100 mg BID PO Last administered on 01/03/18at 08:32; Start 12/31/17 at 21:00 Magnesium Hydroxide (Milk Of Magnesia) 2,400 mg PRN Q12HR PRN PO CONSTIPATION; Start 12/31/17 at 18:45 Bisacodyl (Dulcolax Supp) 10 mg PRN DAILY PRN [place] CONSTIPATION; Start 12/31/17 at 18:45 Enoxaparin Sodium (Lovenox 40mg Syringe) 40 mg Q24H SQ Last administered on at 21:02; Start 12/31/17 at 20:00; Stop 01/01/18 at 09:02; Status DC Lisinopril (Prinivil) 20 mg DAILY PO Last administered on 01/03/18at 08:33; Start 01/01/18 at 09:00 Metoprolol Tartrate (Lopressor) 12.5 mg BID PO Last administered on 01/01/18at 08:21; Start 12/31/17 at 21:00; Stop 01/01/18 at 10:48; Status DC Tramadol HCl (Ultram) 50 mg TID PRN PRN PO MOD-SEVERE PAIN Last administered on 01/01/18at 15:46; Start 12/31/17 at 18:45; Stop 01/02/18 at 07:39; Status DC Vitamin D (Vitamin D3) 1,000 unit DAILY PO Last administered on 01/03/18at 08:32 ; Start 01/01/18 at 09:00 Cyclobenzaprine HCl (Flexeril) 5 mg BID PO Last administered on 01/03/18at 08:33 ; Start 12/31/17 at 21:00 Ibuprofen (Motrin) 800 mg PRN Q8HRS PRN PO INFLAMMATION Last administered on at 00:07; Start 12/31/17 at 19:00; Stop 01/01/18 at 09:02; Status DC Famotidine (Pepcid) 20 mg BID PO Last administered on 01/01/18at 08:19; Start at 21:00; Stop 01/01/18 at 11:14; Status DC Lorazepam (Ativan) 2 mg PRN Q4HRS PRN IV ANXIETY / AGITATION; Start 12/31/17 at 18:45 Labetalol HCl (Normodyne Iv Push) 20 mg PRN Q2HR PRN IVP HYPERTENSION, SEE COMMENTS; Start 01/01/18 at 09:15; Stop 01/01/18 at 10:48; Status DC Atorvastatin Calcium (Lipitor) 20 mg QHS PO ; Start 01/01/18 at 21:00; Stop at 21:00; Status DC Atorvastatin Calcium (Lipitor) 40 mg QHS PO Last administered on 01/02/18at 21: 04; Start 01/01/18 at 21:00 Carvedilol (Coreg) 3.125 mg BIDWMEALS PO Last administered on 01/03/18at 08:33; Start 01/01/18 at 17:00 Aspirin (Ecotrin) 81 mg DAILYWBKFT PO Last administered on 01/02/18at 09:12; Start 01/01/18 at 11:30 Amlodipine Besylate (Norvasc) 5 mg DAILY PO Last administered on 01/03/18at 08: 32; Start 01/01/18 at 11:30 Cyanocobalamin (Vitamin B-12) 1,000 mcg DAILY PO Last administered on 08:32; Start 01/01/18 at 12:00 Pantoprazole Sodium (Protonix) 40 mg BIDAC PO Last administered on 01/03/18 08 :33; Start 01/01/18 at 16:30 Levetiracetam 500 mg/Dextrose 105 ml @ 420 mls/hr 1X ONCE IV Last administered on 01/02/18at 09:13; Start 01/02/18 at 08:00; Stop 01/02/18 at 08:14 ; Status DC Levetiracetam (Keppra) 500 mg BID PO Last administered on 01/03/18 08:32; Start 01/02/18 at 21:00 Tramadol HCl (Ultram) 50 mg PRN Q6HRS PRN PO MODERATE PAIN Last administered on 01/03/18at 08:40; Start 01/02/18 at 21:30 Active Scripts Active Reported Cyclobenzaprine Hcl 5 Mg Tablet 1 Tab PO BID Vitamin D (Cholecalciferol (Vitamin D3)) 1,000 Unit Capsule 1 Cap PO DAILY Tramadol Hcl 50 Mg Tablet 50 Mg PO TID PRN PRN Ranitidine Hcl 150 Mg Tablet 1 Tab PO BID Lisinopril 20 Mg Tablet 1 Tab PO DAILY Metoprolol Tartrate 25 Mg Tablet 0.5 Tab PO BID Ibuprofen 800 Mg Tablet 800 Mg PO TID PRN Vitals/I & O Vital Sign - Last 24 Hours 01/02/18 01/02/18 01/02/18 01/02/18 14:57 18:10 19:00 20:00 Temp 97.9 97.9 97.9 97.9 Pulse 80 80 66 Resp 20 18 B/P (MAP) 141/69 (93) 141/69 138/69 (92) Pulse Ox 95 95 O2 Delivery Room Air Room Air Room Air 01/02/18 01/02/18 01/03/18 01/03/18 21:41 23:00 02:40 06:30 Temp 97.9 97.8 97.3 97.9 97.8 97.3 Pulse 67 63 60 Resp 18 18 18 B/P (MAP) 155/79 (104) 136/99 (111) 170/108 (128) Pulse Ox 96 96 96 O2 Delivery Room Air Room Air Room Air Room Air 01/03/18 01/03/18 01/03/18 01/03/18 08:08 08:32 08:33 08:33 Temp 97.9 97.9 Pulse 63 63 63 63 Resp 18 B/P (MAP) 175/108 (130) 175/108 175/108 175/108 Pulse Ox 99 O2 Delivery Room Air 01/03/18 01/03/18 01/03/18 08:40 09:45 11:00 Temp 97.8 97.8 Pulse 64 Resp 18 B/P (MAP) 148/94 (112) Pulse Ox 99 O2 Delivery Room Air Room Air Room Air Intake and Output 01/02/18 01/02/18 01/03/18 15:00 23:00 07:00 Intake Total 1080 ml 1250 ml 600 ml Balance 1080 ml 1250 ml 600 ml GUZMAN DENNIS MD Jan 03, 2018 14:02
[2018-01-03] MEDS ORDERED: 0.9 % SODIUM CHLORIDE 10 ML DISP.SYRIN. IV PRN ×2 (14:15)
[2018-01-03] MEDS ORDERED: POLYETHYLENE GLYCOL 3350 238 GM POWDER PO ONE (16:00)
[2018-01-03] MEDS: ATORVASTATIN CALCIUM 40 MG TABLET. PO SCH (21:45)
[2018-01-04] VITALS (7 sets, daily range): BP systolic 139–174; BP diastolic 87–123
[2018-01-04] MEDS: IV NORMAL SALINE 1000ML BAG 1,000 ML IV SCH ×3 (02:35→22:32)
[2018-01-04] MEDS: traMADol 50 MG TABLET PO PRN ×3 (05:16→21:21)
[2018-01-04] MEDS: ASPIRIN ENTERIC COATED 81 MG TABLET.DR. PO SCH (08:00)
[2018-01-04] MEDS: SENNOSIDES/DOCUSATE 8.6/50MG TABLET. PO SCH ×2 (08:18→21:22)
[2018-01-04] MEDS: DOCUSATE SODIUM 100 MG CAPSULE. PO SCH ×2 (08:18→21:22)
[2018-01-04] MEDS: CYCLOBENZAPRINE 10 MG TABLET. PO SCH ×2 (08:26→21:20)
[2018-01-04] MEDS: levETIRAcetam 500 MG TABLET PO SCH ×2 (08:27→21:22)
[2018-01-04] MEDS: PANTOPRAZOLE 40 MG TABLET.DR. PO SCH ×2 (08:27→16:06)
[2018-01-04] MEDS: amLODIPine BESYLATE 5 MG TABLET PO SCH (08:27)
[2018-01-04] MEDS: LISINOPRIL 20 MG TABLET PO SCH (08:28)
[2018-01-04] MEDS: CARVEDILOL 3.125 MG TABLET. PO SCH ×2 (08:28→17:10)
--- NOTE | 2018-01-04 09:28 | PDOC ---
PROGRESS NOTES Chief Complaint Chief Complaint 1. syncopal episode with hx CAD 2. LOC with loss of bladder continence 3. CAD/ REMOTE [place] 4. elevated troponin i 5. ABDOMINAL DISCOMFORT, nonspecific 6. prostatic enlargement by ct 7. RLL nodule, suspect nipple shadow 8. GERD 9. [place] [facility] 10. NON injury fall 01/03 History of Present Illness History of Present Illness Called by the staff of Dr. Araya again - wanting an update I told them that he will get back to them once EGD and colonoscopy has been done EGD colonoscopy scheduled at 11 AM later He went into [facility] Thursday Started on Keppra by neurology Plan: Has been nothing by mouth, EGD later So far no recurrence of GI bleed Hemodynamically stable Cervical collar off Vitals Vitals Vital Signs Date Time Temp Pulse Resp B/P (MAP) Pulse Ox O2 Delivery O2 Flow Rate FiO2 01/04/18 08:28 65 157/70 01/04/18 07:36 97.6 18 97 97.6 01/04/18 07:36 Room Air Physical Exam General: Alert, Oriented X3, Cooperative, No acute distress Heart: Regular rate (SR), Normal S1, Normal S2, No murmurs Abdomen: Soft, No tenderness Extremities: No cyanosis, No edema Skin: No breakdown, No significant lesion Review of Systems Review of Systems A 14 point ROS was completed with the following noted as positive: Other systems reviewed and negative. \CONSTITUTIONAL: No fever or chills EYES: No recent changes SKIN: No rash or itching CARDIOVASCULAR: No chest pain, syncope, palpitations, or edema RESPIRATORY: No SOB or cough GASTROINTESTINAL: No nausea, vomiting or abdominal pain NEUROLOGICAL: No headaches or weakness ENDOCRINE: No cold or heat intolerance GENITOURINARY: No urgency or frequency of urination MUSCULOSKELETAL: No back pain or joint pain LYMPHATICS: No enlarged lymph nodes PSYCHIATRIC: No anxiety or depression Comment Review of Relevant I have reviewed the following items andree (where applicable) has been applied. Medications Current Medications Aspirin (Oliva Aspirin) 325 mg 1X ONCE PO Last administered on 12/31/17at 19:14 ; Start 12/31/17 at 18:45; Stop 12/31/17 at 18:46; Status DC Nitroglycerin (Nitrostat) 0.4 mg PRN Q5MIN PRN SL CHEST PAIN; Start 12/31/17 at 18:45 Acetaminophen (Tylenol) 650 mg PRN Q6HRS PRN PO MILD PAIN / TEMP Last administered on 01/03/18at 06:50; Start 12/31/17 at 18:45 Al Hydroxide/Mg Hydroxide (Mylanta Plus Xs) 30 ml PRN Q4HRS PRN PO HEARTBURN / GAS; Start 12/31/17 at 18:45 Ondansetron HCl (Zofran) 4 mg PRN Q6HRS PRN IV NAUSEA/VOMITING; Start 12/31/17 at 18:45 Prochlorperazine (Compazine) 25 mg PRN Q12HR PRN [place] NAUSEA/VOMITING; Start at 18:45 Zolpidem Tartrate (Ambien) 5 mg PRN QHS PRN PO INSOMNIA Last administered on at 23:40; Start 12/31/17 at 18:45 Enoxaparin Sodium (Lovenox 40mg Syringe) 40 mg Q12HR SQ ; Start 12/31/17 at 21: 00; Status UNV Sodium Chloride (Normal Saline Flush) 3 ml QSHIFT PRN IV AFTER MEDS AND BLOOD DRAWS; Start 12/31/17 at 18:45 Sodium Chloride 1,000 ml @ 100 mls/hr Q10H IV Last administered on 01/04/18at 02:35; Start 12/31/17 at 18:32 Senna/Docusate Sodium (Senna Plus) 1 tab BID PO Last administered on 01/03/18at 08:32; Start 12/31/17 at 21:00 Docusate Sodium (Colace) 100 mg BID PO Last administered on 01/03/18at 08:32; Start 12/31/17 at 21:00 Magnesium Hydroxide (Milk Of Magnesia) 2,400 mg PRN Q12HR PRN PO CONSTIPATION; Start 12/31/17 at 18:45 Bisacodyl (Dulcolax Supp) 10 mg PRN DAILY PRN [place] CONSTIPATION; Start 12/31/17 at 18:45 Enoxaparin Sodium (Lovenox 40mg Syringe) 40 mg Q24H SQ Last administered on at 21:02; Start 12/31/17 at 20:00; Stop 01/01/18 at 09:02; Status DC Lisinopril (Prinivil) 20 mg DAILY PO Last administered on 01/04/18 08:28; Start 01/01/18 at 09:00 Metoprolol Tartrate (Lopressor) 12.5 mg BID PO Last administered on 01/01/18at 08:21; Start 12/31/17 at 21:00; Stop 01/01/18 at 10:48; Status DC Tramadol HCl (Ultram) 50 mg TID PRN PRN PO MOD-SEVERE PAIN Last administered on 01/01/18at 15:46; Start 12/31/17 at 18:45; Stop 01/02/18 at 07:39; Status DC Vitamin D (Vitamin D3) 1,000 unit DAILY PO Last administered on 01/03/18 08:32 ; Start 01/01/18 at 09:00 Cyclobenzaprine HCl (Flexeril) 5 mg BID PO Last administered on 01/04/18at 08:26 ; Start 12/31/17 at 21:00 Ibuprofen (Motrin) 800 mg PRN Q8HRS PRN PO INFLAMMATION Last administered on at 00:07; Start 12/31/17 at 19:00; Stop 01/01/18 at 09:02; Status DC Famotidine (Pepcid) 20 mg BID PO Last administered on 01/01/18at 08:19; Start at 21:00; Stop 01/01/18 at 11:14; Status DC Lorazepam (Ativan) 2 mg PRN Q4HRS PRN IV ANXIETY / AGITATION; Start 12/31/17 at 18:45 Labetalol HCl (Normodyne Iv Push) 20 mg PRN Q2HR PRN IVP HYPERTENSION, SEE COMMENTS; Start 01/01/18 at 09:15; Stop 01/01/18 at 10:48; Status DC Atorvastatin Calcium (Lipitor) 20 mg QHS PO ; Start 01/01/18 at 21:00; Stop at 21:00; Status DC Atorvastatin Calcium (Lipitor) 40 mg QHS PO Last administered on 01/03/18at 21: 45; Start 01/01/18 at 21:00 Carvedilol (Coreg) 3.125 mg BIDWMEALS PO Last administered on 01/04/18at 08:28; Start 01/01/18 at 17:00 Aspirin (Ecotrin) 81 mg DAILYWBKFT PO Last administered on 01/02/18at 09:12; Start 01/01/18 at 11:30 Amlodipine Besylate (Norvasc) 5 mg DAILY PO Last administered on 01/04/18at 08: 27; Start 01/01/18 at 11:30 Cyanocobalamin (Vitamin B-12) 1,000 mcg DAILY PO Last administered on at 08:32; Start 01/01/18 at 12:00 Pantoprazole Sodium (Protonix) 40 mg BIDAC PO Last administered on 01/04/18at 08 :27; Start 01/01/18 at 16:30 Levetiracetam 500 mg/Dextrose 105 ml @ 420 mls/hr 1X ONCE IV Last administered on 01/02/18at 09:13; Start 01/02/18 at 08:00; Stop 01/02/18 at 08:14 ; Status DC Levetiracetam (Keppra) 500 mg BID PO Last administered on 01/04/18at 08:27; Start 01/02/18 at 21:00 Tramadol HCl (Ultram) 50 mg PRN Q6HRS PRN PO MODERATE PAIN Last administered on 01/04/18at 05:16; Start 01/02/18 at 21:30 Bisacodyl (Dulcolax Tab) 10 mg 1X ONCE PO Last administered on 01/03/18at 16:22 ; Start 01/03/18 at 14:00; Stop 01/03/18 at 14:13; Status DC Polyethylene Glycol (miraLAX Powder BULK BOTTLE) 238 gm 1X ONCE PO Last administered on 01/03/18at 16:22; Start 01/03/18 at 16:00; Stop 01/03/18 at 16:01 ; Status DC Sodium Chloride (Normal Saline Flush) 3 ml QSHIFT PRN IV AFTER MEDS AND BLOOD DRAWS; Start 01/03/18 at 14:15; Status Cancel Sodium Chloride (Normal Saline Flush) 3 ml QSHIFT PRN IV AFTER MEDS AND BLOOD DRAWS; Start 01/03/18 at 14:15 Active Scripts Active Reported Cyclobenzaprine Hcl 5 Mg Tablet 1 Tab PO BID Vitamin D (Cholecalciferol (Vitamin D3)) 1,000 Unit Capsule 1 Cap PO DAILY Tramadol Hcl 50 Mg Tablet 50 Mg PO TID PRN PRN Ranitidine Hcl 150 Mg Tablet 1 Tab PO BID Lisinopril 20 Mg Tablet 1 Tab PO DAILY Metoprolol Tartrate 25 Mg Tablet 0.5 Tab PO BID Ibuprofen 800 Mg Tablet 800 Mg PO TID PRN Vitals/I & O Vital Sign - Last 24 Hours 01/03/18 01/03/18 01/03/18 01/03/18 11:00 15:56 16:23 16:23 Temp 97.8 97.8 97.8 97.8 Pulse 64 70 70 Resp 18 18 B/P (MAP) 148/94 (112) 149/93 (111) 149/93 Pulse Ox 99 99 O2 Delivery Room Air Room Air Room Air 01/03/18 01/03/18 01/03/18 01/03/18 19:00 20:00 21:45 23:00 Temp 97.9 97.9 97.9 97.9 Pulse 67 63 Resp 18 20 18 B/P (MAP) 140/93 (109) 160/93 (115) Pulse Ox 97 96 O2 Delivery Room Air Room Air Room Air Room Air 01/04/18 01/04/18 01/04/18 01/04/18 03:00 05:16 06:16 07:00 Temp 97.7 97.8 97.7 97.8 Pulse 60 64 Resp 20 20 18 20 B/P (MAP) 139/93 (108) 145/90 (108) Pulse Ox 97 97 O2 Delivery Room Air Room Air Room Air Room Air 01/04/18 01/04/18 01/04/18 01/04/18 07:36 07:36 08:27 08:28 Temp 97.6 97.6 Pulse 65 65 65 Resp 18 B/P (MAP) 157/70 157/70 Pulse Ox 97 O2 Delivery Room Air 01/04/18 08:28 Pulse 65 B/P (MAP) 157/70 Intake and Output 01/03/18 01/03/18 01/04/18 15:00 23:00 07:00 Intake Total 680 ml 240 ml 1000 ml Output Total 2425 ml 500 ml Balance -1745 ml -260 ml 1000 ml Nutrition Consultation Dietary Evaluation: Recommendations by RD: PPN/TPN Comments: REC cardiac/soft diet REC Ensure w/lunch and dinner, all flavors Expected Outcomes/Goals: PO intake to meet >75% est needs Interpretation of weight loss: >5% in 1 month Malnutrition Findings: Food and Nutrition Intake (Mod: <75% est energy req 7days Weight Status: Appropriate MARTITA QUIROS MD Jan 04, 2018 09:28
[2018-01-04 11:25] LABS: BASO # 0.1 x10^3/uL (0.0-0.2); BASO % 1 % (0-3); EOS # 0.4 x10^3/uL (0.0-0.7); EOS % 6 % (0-3); HEMATOCRIT 36.4 % (39.0-53.0); HEMOGLOBIN 12.6 g/dL (13.0-17.5); LYMPH # 1.5 x10^3/uL (1.0-4.8); LYMPH % 22 % (24-48); MEAN CORPUSCULAR HEMOGLOBIN 31 pg (25-35); MEAN CORPUSCULAR HGB CONC 35 g/dL (31-37); MEAN CORPUSCULAR VOLUME 88 fL (79-100); MONO # 0.5 x10^3/uL (0.0-1.1); MONO % 8 % (0-9); NEUT # 4.3 x10^3uL (1.8-7.7); NEUT % 63 % (31-73); PLATELET COUNT 267 x10^3/uL (140-400); RED BLOOD COUNT 4.13 x10^6/uL (4.30-5.70); RED CELL DISTRIBUTION WIDTH 13.2 % (11.5-14.5); WHITE BLOOD COUNT 6.8 x10^3/uL (4.0-11.0)
[2018-01-04] MEDS: IV RINGERS,LACTATED 1000ML 1,000 ML IV SCH (11:30)
[2018-01-04 11:47] LABS: CALCIUM 8.4 mg/dL (8.5-10.1); CREATININE 0.8 mg/dL (0.7-1.3); GFR 99.6; POTASSIUM 3.5 mmol/L (3.5-5.1)
[2018-01-04] MEDS ORDERED: PROPOFOL 20 ML IV ONE ×2 (12:07)
[2018-01-04] MEDS ORDERED: LIDOCAINE 2% PF Vial for OR 5 ML VIAL. ONE (12:07)
--- NOTE | 2018-01-04 12:36 | PDOC4 ---
Operative Note Operative Note EGD/Colonoscopy Meds propofol per anesthesia Pre-op dx anemia Post-op dx atrophic gastritis internal hemorrhoids Plan resume diet release today SELIN KUHN MD Jan 04, 2018 12:36
--- NOTE | 2018-01-04 13:43 | PDOC ---
PROGRESS NOTES Assessment Assessment Syncopal spell vs seizure? Confusion, brief. CAD. NE Hx. HTN. HLD. 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 No evidence of acute intracranial abnormal findings this time. RECOMMENDATIONS/PLAN: Treat medical and cardiac diseases. Vit B12 supplement. EEG on 01/02: Normal. HISTORY OF THE PRESENT ILLNESS: This is a 57-y-old male inmate. He had an episode as syncopal spell vs seizure with briefly LOC then confusion, but no detailed information is available. No convulsion reported. The patient was unable to provide information about his episode. He was reportedly to have a seizure or seizure like episode lasted for < 1 minute on 01/02/18 described as shaking movements in his extremities, but he covered himself with sheet, so not possible to see his eyes, face, or extremities, except saw movements inside sheet.He was reportedly able to talk normally after his episode. He said he heard people calling him during the episode. PAST MEDICAL HISTORY Cardiovascular: CAD, HTN, Hyperlipidemia Pulmonary: No pertinent hx CENTRAL NERVOUS SYSTEM: Seizure (?), TIA (?) GI: GERD Heme/Onc: No pertinent hx Hepatobiliary: No pertinent hx Psych: Depression (was on prozac but was taken off due to hyponatremia) Musculoskeletal: Osteoarthritis Rheumatologic: No pertinent hx Infectious disease: No pertinent hx ENT: No pertinent hx Renal/: Benign prostatic enlarg. Endocrine: No pertinent hx Dermatology: No pertinent hx PAST SURGICAL HISTORY Arthroscopy (left knee meniscus repair), Other (PCI/stent 4 yrs ago) FAMILY HISTORY HLD. SOCIAL HISTORY Smoke: <1 pack per day ALCOHOL: none Drugs: None Lives: Currently in correctional facility. ALLERGIES Penicillins (Verified Allergy, Intermediate, Rash, 01/01/18) MEDICATIONS: Refer to [facility] REVIEW OF SYSTEMS: Constitutional: No malnutrition, weight loss, cachexia. Head: No recent traumatic brain or head injury. Skin: No edema, or rash. Ear: No infection. Eyes: No vision loss or color blindness. Nose: No bleeding or purulent discharges. Hearing: No hearing decrease. Neck: No injury. Cardiac: CAD, HTN, HLD. Pulmonary: No COPD. GI: GERD. Urinary/genital: No dysuria, incontinence, urinary retention. Endocrinologic: No cousin face, craniofacial dysmorphism, polydactyly. Skeletomuscular: No muscular atrophy, deformity. Neurological: see HP. Psychiatric: Denies drug use/abuse. Otherwise, not [id number] review of systems. PHYSICAL EXAMINATION: General appearance is in no acute distress. HEENT: Normocephalic and nontraumatic. Eyes, nose, ears, and throat are unremarkable. Neck is supple. No lymphadenopathy. No crepitus. Cardiovascular: S1, S2, regular rate and rhythm. Pulmonary: Clear to auscultation bilaterally. Abdomen: Bowel sounds are positive. Extremities: No rash, lesions, or edema. No restriction of range of motion NEUROLOGICAL EXAMINATION: Alert. Oriented to time, place and person. PERRL. EOMI. CN: no focal findings. Muscle tone: within normal. Muscle strength: 5 DTR: 2 Plantar reflex: Flexor response bilaterally Gait: not examined in bed. Sensory exam: no abnormal findings. No cerebellar signs elicited. F-T-N test fine. Objective Objective Vital Signs Date Time Temp Pulse Resp B/P (MAP) Pulse Ox O2 Delivery O2 Flow Rate FiO2 01/04/18 12:52 98.5 60 18 138/80 96 Room Air 98.5 01/04/18 12:37 2 Intake and Output 01/04/18 07:00 Intake Total 1920 ml Output Total 2925 ml Balance -1005 ml Intake Oral 920 ml IV Total 1000 ml Output Urine Total 2925 ml # Voids 2 # Bowel Movements 2 Vitals Signs Vitals VS - Last 72 Hours, by Label Date Time Temp Pulse Resp B/P (MAP) Pulse Ox O2 Delivery O2 Flow Rate FiO2 01/04/18 12:52 98.5 60 18 138/80 96 Room Air 98.5 01/04/18 12:37 98.5 61 18 83/49 96 Room Air 2 98.5 01/04/18 11:55 98.5 60 18 97 98.5 01/04/18 11:00 98.4 70 20 143/87 (105) 97 Room Air 98.4 01/04/18 08:28 65 157/70 01/04/18 08:28 65 157/70 01/04/18 08:27 65 157/70 01/04/18 08:00 Room Air 01/04/18 07:36 97.6 65 18 97 97.6 01/04/18 07:36 Room Air 01/04/18 07:00 97.8 64 20 145/90 (108) 97 Room Air 97.8 01/04/18 06:16 18 Room Air 01/04/18 05:16 20 Room Air 01/04/18 03:00 97.7 60 20 139/93 (108) 97 Room Air 97.7 01/03/18 23:00 97.9 63 18 160/93 (115) 96 Room Air 97.9 01/03/18 21:45 20 Room Air 01/03/18 20:00 Room Air 01/03/18 19:00 97.9 67 18 140/93 (109) 97 Room Air 97.9 01/03/18 16:23 Room Air 01/03/18 16:23 70 149/93 01/03/18 15:56 97.8 70 18 149/93 (111) 99 Room Air 97.8 01/03/18 11:00 97.8 64 18 148/94 (112) 99 Room Air 97.8 01/03/18 08:40 Room Air 01/03/18 08:33 63 175/108 01/03/18 08:33 63 175/108 01/03/18 08:32 63 175/108 01/03/18 08:08 97.9 63 18 175/108 (130) 99 Room Air 97.9 01/03/18 08:00 Room Air Laboratory Laboratory Laboratory Tests Test 01/04/18 10:55 White Blood Count 6.8 x10^3/uL (4.0-11.0) Red Blood Count 4.13 x10^6/uL (4.30-5.70) Hemoglobin 12.6 g/dL (13.0-17.5) Hematocrit 36.4 % (39.0-53.0) Mean Corpuscular Volume 88 fL (79-100) Mean Corpuscular Hemoglobin 31 pg (25-35) Mean Corpuscular Hemoglobin Concent 35 g/dL (31-37) Red Cell Distribution Width 13.2 % (11.5-14.5) Platelet Count 267 x10^3/uL (140-400) Neutrophils (%) (Auto) 63 % (31-73) Lymphocytes (%) (Auto) 22 % (24-48) Monocytes (%) (Auto) 8 % (0-9) Eosinophils (%) (Auto) 6 % (0-3) Basophils (%) (Auto) 1 % (0-3) Neutrophils # (Auto) 4.3 x10^3uL (1.8-7.7) Lymphocytes # (Auto) 1.5 x10^3/uL (1.0-4.8) Monocytes # (Auto) 0.5 x10^3/uL (0.0-1.1) Eosinophils # (Auto) 0.4 x10^3/uL (0.0-0.7) Basophils # (Auto) 0.1 x10^3/uL (0.0-0.2) Sodium Level 139 mmol/L (136-145) Potassium Level 3.5 mmol/L (3.5-5.1) Chloride Level 104 mmol/L (98-107) Carbon Dioxide Level 27 mmol/L (21-32) Anion Gap 8 (6-14) Blood Urea Nitrogen 2 mg/dL (8-26) Creatinine 0.8 mg/dL (0.7-1.3) Estimated GFR (Cockcroft-Gault) 99.6 Glucose Level 92 mg/dL (70-99) Calcium Level 8.4 mg/dL (8.5-10.1) Medication Medications Current Medications Bisacodyl (Dulcolax Tab) 10 mg 1X ONCE PO Last administered on 01/03/18at 16:22 ; Start 01/03/18 at 14:00; Stop 01/03/18 at 14:13; Status DC Lidocaine HCl (Lidocaine Pf 2% Vial) 5 ml STK-MED ONCE .ROUTE ; Start 01/04/18 at 12:07; Stop 01/04/18 at 12:08; Status DC Polyethylene Glycol (miraLAX Powder BULK BOTTLE) 238 gm 1X ONCE PO Last administered on 01/03/18at 16:22; Start 01/03/18 at 16:00; Stop 01/03/18 at 16:01 ; Status DC Propofol 20 ml @ As Directed STK-MED ONCE IV ; Start 01/04/18 at 12:07; Stop at 12:08; Status DC Propofol 20 ml @ As Directed STK-MED ONCE IV ; Start 01/04/18 at 12:07; Stop at 12:08; Status DC Ringer's Solution 1,000 ml @ 75 mls/hr [id number] IV Last administered on at 11:30; Start 01/04/18 at 11:30 Sodium Chloride (Normal Saline Flush) 3 ml QSHIFT PRN IV AFTER MEDS AND BLOOD DRAWS; Start 01/03/18 at 14:15 Sodium Chloride (Normal Saline Flush) 3 ml QSHIFT PRN IV AFTER MEDS AND BLOOD DRAWS; Start 01/03/18 at 14:15; Status Cancel Comment Review of Relevant I have reviewed the following items andree (where applicable) has been applied. SALINAS BRADY MD Jan 04, 2018 13:43
[2018-01-04] MEDS: CHOLECALCIFEROL (VITAMIN D3) 1,000 UNIT TABLET PO SCH (14:04)
[2018-01-04] MEDS: CYANOCOBALAMIN (VITAMIN B-12) 1,000 MCG TABLET. PO SCH (14:04)
--- NOTE | 2018-01-04 19:30 | CONS ---
DATE OF CONSULTATION: 01/04/2018 LOCATION: Room 667. REQUESTING PHYSICIAN: Dr. Galvez. ATTENDING PHYSICIAN: Dr. Parr. HISTORY OF PRESENT ILLNESS: This is a 57-year-old male prisoner, transferred here from [facility] for syncopal episode and elevated troponin and loss of consciousness with loss of bladder incontinence secondary to postictal confusion remote history of myocardial infarction, also with known gastroesophageal reflux disease, anxiety and neck pain with radiation to both upper extremities with associated tingling and numbness in his left upper extremity since he fell about 5 months ago and he was told that he had herniated and bulging disk at 4 levels in his neck. The patient admits that he fell yesterday and since then he is having some pain in his right arm. The patient since admission had radiological studies including MRI scan of the brain, which failed to reveal any acute abnormality. PHYSICAL EXAMINATION: Today revealed a middle-aged male. He is alert, oriented to time, place, person and circumstance and follows commands appropriately, moves all 4 extremities voluntarily. He had some pain on range of motion of his cervical spine with minimal tenderness to palpation over cervical paraspinal muscles and also over right arm distal part where he had some bruising. He had painful range of motion of all four extremity joints. Deep tendon reflexes are 1 to 2+ and symmetrical and he had equal perception of touch and pinprick sensation bilaterally. Negative Tinel sign over median nerve at the wrist and over ulnar nerve at the wrist and elbow and negative Phalen sign at both wrists. I have not tested his transfers or ambulation skills at this time, but he apparently walked this morning. ASSESSMENT: The patient with chronic cervical sprain with left cervical radiculitis, no clinical evidence of ongoing lumbar radiculopathy, recent fall and bruising of her right and some pain on the right arm. The patient with known seizure disorder, coronary artery disease, myocardial infarction, gastroesophageal reflux disease, anxiety, family history of hypercholesterolemia, known ALLERGIC TO PENICILLIN, is a previous smoker. RECOMMENDATIONS: To use ice packs to his neck and right arm. I do not see any need for any radiological studies of his neck at present time. Dr. Galvez, appreciate asking me to participate in the care of this interesting patient. MARGOT PELAYO MD DR: ROSAS/marti JOB#: [id number] / [id number]
[2018-01-04] MEDS: ATORVASTATIN CALCIUM 40 MG TABLET. PO SCH (21:20)
[2018-01-04] MEDS ORDERED: LABETALOL 20 MG/4 ML DISP.SYRIN. IVP PRN (22:45)
[2018-01-05] VITALS (7 sets, daily range): BP systolic 142–193; BP diastolic 88–122
[2018-01-05] MEDS: IV RINGERS,LACTATED 1000ML 1,000 ML IV SCH ×2 (00:50→14:08)
[2018-01-05] MEDS: traMADol 50 MG TABLET PO PRN ×4 (03:09→23:33)
[2018-01-05] MEDS: PANTOPRAZOLE 40 MG TABLET.DR. PO SCH ×2 (07:28→16:05)
[2018-01-05] MEDS: levETIRAcetam 500 MG TABLET PO SCH ×2 (08:24→21:05)
[2018-01-05] MEDS: CYANOCOBALAMIN (VITAMIN B-12) 1,000 MCG TABLET. PO SCH (08:24)
[2018-01-05] MEDS: LISINOPRIL 20 MG TABLET PO SCH (08:24)
[2018-01-05] MEDS: CHOLECALCIFEROL (VITAMIN D3) 1,000 UNIT TABLET PO SCH (08:24)
[2018-01-05] MEDS: ASPIRIN ENTERIC COATED 81 MG TABLET.DR. PO SCH (08:24)
[2018-01-05] MEDS: CYCLOBENZAPRINE 10 MG TABLET. PO SCH ×2 (08:25→21:00)
[2018-01-05] MEDS: CARVEDILOL 3.125 MG TABLET. PO SCH (08:25)
[2018-01-05] MEDS: amLODIPine BESYLATE 5 MG TABLET PO SCH (08:29)
[2018-01-05] MEDS: IV NORMAL SALINE 1000ML BAG 1,000 ML IV SCH (08:32)
[2018-01-05] MEDS: SENNOSIDES/DOCUSATE 8.6/50MG TABLET. PO SCH ×2 (09:00→21:04)
[2018-01-05] MEDS: DOCUSATE SODIUM 100 MG CAPSULE. PO SCH ×2 (09:00→21:00)
[2018-01-05] MEDS ORDERED: CARV3.122 PO (09:05)
[2018-01-05] MEDS ORDERED: ASPI-612 PO (09:05)
[2018-01-05] MEDS ORDERED: ATOR40TA59 PO (09:05)
[2018-01-05] MEDS ORDERED: LEVE500T56 PO (09:05)
[2018-01-05] MEDS ORDERED: AMLO5TAB7 PO (09:05)
[2018-01-05] MEDS ORDERED: NITR0.4T SL (09:05)
--- NOTE | 2018-01-05 09:05 | DISCH ---
DISCHARGE DISCHARGE INFORMATION: CONDITION ON DISCHARGE: Stable CODE STATUS: Code Status: Full ASSISTED: SNF STAY <30 DAYS: Yes HOSPICE: HOSPICE: No HOSPICE EVAL & TREAT: No LTAC: ADMIT TO LTAC: No POST DISCHARGE ORDERS: ACTIVITY ORDERS: Resume previous activity WEIGHT BEARING STATUS: No restrictions DIET AFTER DISCHARGE: Cardiac CHECKS AFTER DISCHARGE: CHECKS AFTER DISCHARGE: Check blood press - daily TREATMENT/EQUIPMENT ORDERS: ADAPTIVE EQUIPMENT NEEDED: None Physical Therapy For: Evalulation/Treatment Occupational Therapy For: Evaluation/Treatment DISCHARGE MEDICATIONS: Home Meds Active Scripts Levetiracetam (KEPPRA) 500 Mg Tablet, 500 MG PO BID for 30 Days, #60 TAB Prov:MARTITA QUIROS MD 01/05/18 Aspirin (ASPIRIN EC) 81 Mg Tablet.dr, 81 MG PO DAILYWBKFT for 30 Days, #30 TAB.SR Prov:MARTITA QUIROS MD 01/05/18 Amlodipine Besylate (AMLODIPINE BESYLATE) 5 Mg Tablet, 5 MG PO DAILY for 30 Days , #30 TAB Prov:MARTITA QUIROS MD 01/05/18 Nitroglycerin (NITROSTAT) 0.4 Mg Tab.subl, 0.4 MG SL PRN Q5MIN PRN for CHEST PAIN for 30 Days, TAB Prov:MARTITA QUIROS MD 01/05/18 Carvedilol (CARVEDILOL) 3.125 Mg Tablet, 3.125 MG PO BIDWMEALS for 30 Days, #60 TAB Prov:MARTITA QUIROS MD 01/05/18 Atorvastatin Calcium (ATORVASTATIN CALCIUM) 40 Mg Tablet, 40 MG PO QHS for 30 Days, #30 TAB Prov:MARTITA QUIROS MD 01/05/18 Reported Medications Cyclobenzaprine Hcl (CYCLOBENZAPRINE HCL) 5 Mg Tablet, 1 TAB PO BID, #30 TAB 12/31/17 Cholecalciferol (Vitamin D3) (VITAMIN D) 1,000 Unit Capsule, 1 CAP PO DAILY, # 30 CAP 3 Refills 12/31/17 Tramadol Hcl (TRAMADOL HCL) 50 Mg Tablet, 50 MG PO TID PRN PRN for PAIN, TAB 0 Refills 12/31/17 Ranitidine Hcl (RANITIDINE HCL) 150 Mg Tablet, 1 TAB PO BID, #180 TAB 3 Refills 12/31/17 Lisinopril (LISINOPRIL) 20 Mg Tablet, 1 TAB PO DAILY, #30 TAB 5 Refills 12/31/17 Metoprolol Tartrate (METOPROLOL TARTRATE) 25 Mg Tablet, 0.5 TAB PO BID, #180 TAB 1 Refill 12/31/17 Ibuprofen (IBUPROFEN) 800 Mg Tablet, 800 MG PO TID PRN for INFLAMMATION, TAB 12/31/17 MARTITA QUIROS MD Jan 05, 2018 09:05
--- NOTE | 2018-01-05 10:45 | PDOC3 ---
Discharge Summary Visit Information Date of Admission: Dec 31, 2017 Date of Discharge: Jan 05, 2018 Admitting Diagnosis Comment: 1. syncopal episode with hx CAD 2. LOC with loss of bladder continence 3. CAD/ REMOTE [place] 4. elevated troponin i 5. ABDOMINAL DISCOMFORT, nonspecific 6. prostatic enlargement by ct 7. RLL nodule, suspect nipple shadow 8. GERD 9. [place] S[place] 10. NON injury fall 01/03 11. Hematochezia, no recurrence 12. GASTRITIS s/p EGD and c scope Brief Hospital Course Allergies Allergies Coded Allergies Type Severity Reaction Last Updated Verified Penicillins Allergy Intermediate Rash 01/04/18 Yes Vital Signs Vital Signs Date Time Temp Pulse Resp B/P (MAP) Pulse Ox O2 Delivery O2 Flow Rate FiO2 01/05/18 08:31 18 Room Air 01/05/18 08:29 66 159/122 01/05/18 06:32 98.0 100 98.0 01/04/18 12:37 2 Lab Results Laboratory Tests Test 01/04/18 10:55 White Blood Count 6.8 x10^3/uL (4.0-11.0) Red Blood Count 4.13 x10^6/uL (4.30-5.70) Hemoglobin 12.6 g/dL (13.0-17.5) Hematocrit 36.4 % (39.0-53.0) Mean Corpuscular Volume 88 fL (79-100) Mean Corpuscular Hemoglobin 31 pg (25-35) Mean Corpuscular Hemoglobin Concent 35 g/dL (31-37) Red Cell Distribution Width 13.2 % (11.5-14.5) Platelet Count 267 x10^3/uL (140-400) Neutrophils (%) (Auto) 63 % (31-73) Lymphocytes (%) (Auto) 22 % (24-48) Monocytes (%) (Auto) 8 % (0-9) Eosinophils (%) (Auto) 6 % (0-3) Basophils (%) (Auto) 1 % (0-3) Neutrophils # (Auto) 4.3 x10^3uL (1.8-7.7) Lymphocytes # (Auto) 1.5 x10^3/uL (1.0-4.8) Monocytes # (Auto) 0.5 x10^3/uL (0.0-1.1) Eosinophils # (Auto) 0.4 x10^3/uL (0.0-0.7) Basophils # (Auto) 0.1 x10^3/uL (0.0-0.2) Sodium Level 139 mmol/L (136-145) Potassium Level 3.5 mmol/L (3.5-5.1) Chloride Level 104 mmol/L (98-107) Carbon Dioxide Level 27 mmol/L (21-32) Anion Gap 8 (6-14) Blood Urea Nitrogen 2 mg/dL (8-26) Creatinine 0.8 mg/dL (0.7-1.3) Estimated GFR (Cockcroft-Gault) 99.6 Glucose Level 92 mg/dL (70-99) Calcium Level 8.4 mg/dL (8.5-10.1) Laboratory Tests Test 01/04/18 10:55 White Blood Count 6.8 x10^3/uL (4.0-11.0) Red Blood Count 4.13 x10^6/uL (4.30-5.70) Hemoglobin 12.6 g/dL (13.0-17.5) Hematocrit 36.4 % (39.0-53.0) Mean Corpuscular Volume 88 fL (79-100) Mean Corpuscular Hemoglobin 31 pg (25-35) Mean Corpuscular Hemoglobin Concent 35 g/dL (31-37) Red Cell Distribution Width 13.2 % (11.5-14.5) Platelet Count 267 x10^3/uL (140-400) Neutrophils (%) (Auto) 63 % (31-73) Lymphocytes (%) (Auto) 22 % (24-48) Monocytes (%) (Auto) 8 % (0-9) Eosinophils (%) (Auto) 6 % (0-3) Basophils (%) (Auto) 1 % (0-3) Neutrophils # (Auto) 4.3 x10^3uL (1.8-7.7) Lymphocytes # (Auto) 1.5 x10^3/uL (1.0-4.8) Monocytes # (Auto) 0.5 x10^3/uL (0.0-1.1) Eosinophils # (Auto) 0.4 x10^3/uL (0.0-0.7) Basophils # (Auto) 0.1 x10^3/uL (0.0-0.2) Sodium Level 139 mmol/L (136-145) Potassium Level 3.5 mmol/L (3.5-5.1) Chloride Level 104 mmol/L (98-107) Carbon Dioxide Level 27 mmol/L (21-32) Anion Gap 8 (6-14) Blood Urea Nitrogen 2 mg/dL (8-26) Creatinine 0.8 mg/dL (0.7-1.3) Estimated GFR (Cockcroft-Gault) 99.6 Glucose Level 92 mg/dL (70-99) Calcium Level 8.4 mg/dL (8.5-10.1) Brief Hospital Course Mr. Husain is a 57 old inmate, he is originally from [place], admitted because of episode of hematochezia but was hemodynamically stable. He also had some abdominal pain. He was transferred from [facility] with a normal CAT scan. He came in on Thursday, GI was consulted, plan for C scope and EGD on Thursday. He had a EGD and cscope on Thursday which only showed gastritis. But during the weekend prior to that he had a seizure, history of seizure?, Consulted neurology. Brain imaging is negative but did start him on Keppra 500 by mouth twice a day by neurology. He also had a non injury fall that weekend, no further imaging needed and on clinical exam, no obvious signs of deformity, Advised to ice the tender areas. All new meds on chart including a statin, aspirin, nitroglycerin for pain. No recurrence of the hematochezia. Medically ready and cleared from all other services to be [facility] today [facility] jail with new meds on file Facility is requesting for copies of his medical records, I am okay with that. We'll double check with case management etc. Proc: egd, c scope COnsults: neuro,cards, GI, physiatry dc 34 mins Discharge Information Condition at Discharge: Improved, Stable Disposition/Orders: Other (jail) Scheduled Amlodipine Besylate (Amlodipine Besylate) 5 Mg Tablet, 5 MG PO DAILY for 30 Days , #30 Prescribed by: MARTITA QUIROS on 01/05/18 0905 Aspirin (Aspirin Ec) 81 Mg Tablet.dr, 81 MG PO DAILYWBKFT for 30 Days, #30 Prescribed by: MARTITA UQIROS on 01/05/18 0905 Atorvastatin Calcium (Atorvastatin Calcium) 40 Mg Tablet, 40 MG PO QHS for 30 Days, #30 Prescribed by: MARTITA QUIROS on 01/05/18 0905 Carvedilol (Carvedilol) 3.125 Mg Tablet, 3.125 MG PO BIDWMEALS for 30 Days, #60 Prescribed by: MARTITA QUIROS on 01/05/18 0905 Cholecalciferol (Vitamin D3) (Vitamin D) 1,000 Unit Capsule, 1 CAP PO DAILY, # 30 Ref 3 (Reported) Entered as Reported by: YANDEL MAURER RN on 12/31/171804 Last Taken: UNKNOWN on Unknown Date & Time Last Action: Converted on 12/31 by JUAN J BACON MD Cyclobenzaprine Hcl (Cyclobenzaprine Hcl) 5 Mg Tablet, 1 TAB PO BID, #30 ( Reported) Entered as Reported by: YANDEL MUARER RN on 12/31/171804 Last Taken: UNKNOWN on Unknown Date & Time Last Action: Converted on 12/31 by JUAN J BACON MD Levetiracetam (Keppra) 500 Mg Tablet, 500 MG PO BID for 30 Days, #60 Prescribed by: MARTITA QUIROS on 01/05/18 09 Lisinopril (Lisinopril) 20 Mg Tablet, 1 TAB PO DAILY, #30 Ref 5 (Reported) Entered as Reported by: YANDEL MAURER RN on 12/31/171804 Last Taken: UNKNOWN on Unknown Date & Time Last Action: Continued on 12/31 by JUAN J BACON MD Metoprolol Tartrate (Metoprolol Tartrate) 25 Mg Tablet, 0.5 TAB PO BID, #180 Ref 1 (Reported) Entered as Reported by: YANDEL MAURER RN on 12/31/171804 Last Taken: UNKNOWN on Unknown Date & Time Last Action: Continued on 12/31 by JUAN J BACON MD Ranitidine Hcl (Ranitidine Hcl) 150 Mg Tablet, 1 TAB PO BID, #180 Ref 3 ( Reported) Entered as Reported by: YANDEL MAURER RN on 12/31/171804 Last Taken: UNKNOWN on Unknown Date & Time Last Action: Converted on 12/31 by JUAN J BACON MD Scheduled PRN Ibuprofen (Ibuprofen) 800 Mg Tablet, 800 MG PO TID PRN for INFLAMMATION, ( Reported) Entered as Reported by: YANDEL MAURER RN on 12/31/171804 Last Taken: UNKNOWN on Unknown Date & Time Last Action: Converted on 12/31 by JUAN J BACON MD Nitroglycerin (Nitrostat) 0.4 Mg Tab.subl, 0.4 MG SL PRN Q5MIN PRN for CHEST PAIN for 30 Days Prescribed by: MARTITA QUIROS on 01/05/18 0905 Tramadol Hcl (Tramadol Hcl) 50 Mg Tablet, 50 MG PO TID PRN PRN for PAIN, Ref 0 ( Reported) Entered as Reported by: YANDEL MAURER RN on 12/31/171804 Last Taken: UNKNOWN on Unknown Date & Time Last Action: Continued on 12/31 by MD CHULA SANDERS CHERRIE Y MD Jan 05, 2018 10:45
[2018-01-05] MEDS ORDERED: LABETALOL 20 MG/4 ML DISP.SYRIN. IVP ONE (11:00)
[2018-01-05] MEDS ORDERED: ENALAPRILAT 1.25 MG/ML VIAL. IVP ONE (13:15)
[2018-01-05] MEDS ORDERED: MORPHINE SULFATE 2 MG/ML VIAL. IV ONE (13:15)
--- NOTE | 2018-01-05 14:24 | PDOC ---
Subjective: Subjective: Says DC held w/ elevated BP. Tolerating BP though not much appetite today, a few abd cramps. Objective: Vital Signs: Vital Signs Date Time Temp Pulse Resp B/P (MAP) Pulse Ox O2 Delivery O2 Flow Rate FiO2 01/05/18 14:18 77 170/98 (122) 01/05/18 13:54 18 Room Air 01/05/18 10:44 97.5 98 97.5 01/04/18 12:37 2 Imaging: EGD and colonoscopy atrophic gastritis internal hemorrhoids PE: GEN: NAD LUNGS: CTAB HEART: RRR ABD: S/ND/NT NEURO/PSYCH: A & O 3 A/P: Hematochezia - no recurrence, stable Hgb on B12 -- DC per primary. Okay to continue PPI for reflux. ANNEMARIE SAWANT Jan 05, 2018 14:24
[2018-01-05] MEDS ORDERED: amLODIPine BESYLATE 5 MG TABLET PO ONE (14:30)
[2018-01-05] MEDS: CARVEDILOL 6.25 MG TABLET. PO SCH (17:06)
--- NOTE | 2018-01-05 17:52 | PDOC ---
PROGRESS NOTES Assessment Assessment Syncopal spell vs seizure? Confusion, brief. CAD. AK Hx. HTN. HLD. 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 No evidence of acute intracranial abnormal findings this time. RECOMMENDATIONS/PLAN: Treat medical and cardiac diseases. Vit B12 supplement. Keppra [address] Sandoval. EEG on 01/02: Normal. HISTORY OF THE PRESENT ILLNESS: This is a 57-y-old male inmate. He had an episode as syncopal spell vs seizure with briefly LOC then confusion, but no detailed information is available. No convulsion reported. The patient was unable to provide information about his episode. He was reportedly to have a seizure or seizure like episode lasted for < 1 minute on 01/02/18 described as shaking movements in his extremities, but he covered himself with sheet, so not possible to see his eyes, face, or extremities, except saw movements inside sheet.He was reportedly able to talk normally after his episode. He said he heard people calling him during the episode. PAST MEDICAL HISTORY Cardiovascular: CAD, HTN, Hyperlipidemia Pulmonary: No pertinent hx CENTRAL NERVOUS SYSTEM: Seizure (?), TIA (?) GI: GERD Heme/Onc: No pertinent hx Hepatobiliary: No pertinent hx Psych: Depression (was on prozac but was taken off due to hyponatremia) Musculoskeletal: Osteoarthritis Rheumatologic: No pertinent hx Infectious disease: No pertinent hx ENT: No pertinent hx Renal/: Benign prostatic enlarg. Endocrine: No pertinent hx Dermatology: No pertinent hx PAST SURGICAL HISTORY Arthroscopy (left knee meniscus repair), Other (PCI/stent 4 yrs ago) FAMILY HISTORY HLD. SOCIAL HISTORY Smoke: <1 pack per day ALCOHOL: none Drugs: None Lives: Currently in correctional facility. ALLERGIES Penicillins (Verified Allergy, Intermediate, Rash, 01/01/18) MEDICATIONS: Refer to [facility] REVIEW OF SYSTEMS: Constitutional: No malnutrition, weight loss, cachexia. Head: No recent traumatic brain or head injury. Skin: No edema, or rash. Ear: No infection. Eyes: No vision loss or color blindness. Nose: No bleeding or purulent discharges. Hearing: No hearing decrease. Neck: No injury. Cardiac: CAD, HTN, HLD. Pulmonary: No COPD. GI: GERD. Urinary/genital: No dysuria, incontinence, urinary retention. Endocrinologic: No cousin face, craniofacial dysmorphism, polydactyly. Skeletomuscular: No muscular atrophy, deformity. Neurological: see HP. Psychiatric: Denies drug use/abuse. Otherwise, not [id number] review of systems. PHYSICAL EXAMINATION: General appearance is in no acute distress. HEENT: Normocephalic and nontraumatic. Eyes, nose, ears, and throat are unremarkable. Neck is supple. No lymphadenopathy. No crepitus. Cardiovascular: S1, S2, regular rate and rhythm. Pulmonary: Clear to auscultation bilaterally. Abdomen: Bowel sounds are positive. Extremities: No rash, lesions, or edema. No restriction of range of motion NEUROLOGICAL EXAMINATION: Alert. Oriented to time, place and person. PERRL. EOMI. CN: no focal findings. Muscle tone: within normal. Muscle strength: 5 DTR: 2 Plantar reflex: Flexor response bilaterally Gait: not examined in bed. Sensory exam: no abnormal findings. No cerebellar signs elicited. F-T-N test fine. Objective Objective Vital Signs Date Time Temp Pulse Resp B/P (MAP) Pulse Ox O2 Delivery O2 Flow Rate FiO2 01/05/18 17:06 76 156/101 01/05/18 13:54 18 Room Air 01/05/18 10:44 97.5 98 97.5 01/04/18 12:37 2 Intake and Output 01/05/18 07:00 Intake Total 1960 ml Output Total 3600 ml Balance -1640 ml Intake Oral 660 ml IV Total 1300 ml Output Urine Total 3600 ml # Voids 1 Vitals Signs Vitals VS - Last 72 Hours, by Label Date Time Temp Pulse Resp B/P (MAP) Pulse Ox O2 Delivery O2 Flow Rate FiO2 01/05/18 17:06 76 156/101 01/05/18 14:59 77 168/89 01/05/18 14:18 77 170/98 (122) 01/05/18 14:18 77 168/89 (115) 01/05/18 13:54 18 Room Air 01/05/18 13:25 79 193/104 01/05/18 13:24 18 Room Air 01/05/18 13:03 79 193/104 (133) 01/05/18 11:04 61 163/88 01/05/18 11:03 18 01/05/18 10:44 97.5 61 163/88 (113) 98 Room Air 97.5 01/05/18 08:31 18 Room Air 01/05/18 08:29 66 159/122 01/05/18 08:25 66 159/122 01/05/18 08:24 66 159/122 01/05/18 08:00 Room Air 01/05/18 06:32 98.0 66 18 159/122 (134) 100 Room Air 98.0 01/05/18 04:09 Room Air 01/05/18 03:09 Room Air 01/05/18 02:51 98.9 64 18 177/115 (135) 96 Room Air 98.9 01/04/18 23:13 67 143/104 (117) 01/04/18 22:43 99.5 71 17 174/123 (140) 97 Room Air 99.5 01/04/18 21:21 Room Air 01/04/18 20:00 Room Air 01/04/18 19:00 97.7 64 17 171/115 (133) 98 Room Air 97.7 01/04/18 17:10 64 158/96 01/04/18 15:00 98.0 64 20 158/96 (116) 98 Room Air 98.0 01/04/18 14:05 18 Room Air 01/04/18 12:52 98.5 60 18 138/80 96 Room Air 98.5 01/04/18 12:37 98.5 61 18 83/49 96 Room Air 2 98.5 01/04/18 11:55 98.5 60 18 97 98.5 01/04/18 11:00 98.4 70 20 143/87 (105) 97 Room Air 98.4 01/04/18 08:28 65 157/70 01/04/18 08:28 65 157/70 01/04/18 08:27 65 157/70 01/04/18 08:00 Room Air 01/04/18 07:36 97.6 65 18 97 97.6 01/04/18 07:36 Room Air 01/04/18 07:00 97.8 64 20 145/90 (108) 97 Room Air 97.8 Medication Medications Current Medications Amlodipine Besylate (Norvasc) 5 mg 1X ONCE PO Last administered on 01/05/18at 14:59; Start 01/05/18 at 14:30; Stop 01/05/18 at 14:31; Status DC Amlodipine Besylate (Norvasc) 10 mg DAILY PO ; Start 01/06/18 at 09:00 Carvedilol (Coreg) 6.25 mg BIDWMEALS PO Last administered on 01/05/18at 17:06; Start 01/05/18 at 17:00 Enalaprilat (Vasotec Inj) 1.25 mg 1X ONCE IVP Last administered on 01/05/18at 13:25; Start 01/05/18 at 13:15; Stop 01/05/18 at 13:20; Status DC Labetalol HCl (Normodyne Iv Push) 20 mg 1X ONCE IVP Last administered on at 11:04; Start 01/05/18 at 11:00; Stop 01/05/18 at 11:01; Status DC Labetalol HCl (Normodyne Iv Push) 20 mg PRN Q2HR PRN IVP HYPERTENSION, SEE COMMENTS; Start 01/04/18 at 22:45 Morphine Sulfate (Morphine Sulfate) 2 mg 1X ONCE IV Last administered on at 13:24; Start 01/05/18 at 13:15; Stop 01/05/18 at 13:20; Status DC Comment Review of Relevant I have reviewed the following items andree (where applicable) has been applied. SALINAS BRADY MD Jan 05, 2018 17:52
[2018-01-05] MEDS: ATORVASTATIN CALCIUM 40 MG TABLET. PO SCH (21:05)
[2018-01-05] MEDS: ZOLPIDEM 5 MG TABLET. PO PRN (23:33)
[2018-01-06 03:00] VITALS: BP 112/73
[2018-01-06] MEDS: traMADol 50 MG TABLET PO PRN ×2 (06:38→12:40)
[2018-01-06 07:00] VITALS: BP 139/97
[2018-01-06] MEDS ORDERED: amLODIPine BESYLATE 10 MG TABLET PO SCH (09:00)
[2018-01-06] MEDS: DOCUSATE SODIUM 100 MG CAPSULE. PO SCH (09:01)
[2018-01-06] MEDS: PANTOPRAZOLE 40 MG TABLET.DR. PO SCH ×2 (09:01→16:53)
[2018-01-06] MEDS: CHOLECALCIFEROL (VITAMIN D3) 1,000 UNIT TABLET PO SCH (09:01)
[2018-01-06] MEDS: SENNOSIDES/DOCUSATE 8.6/50MG TABLET. PO SCH (09:01)
[2018-01-06] MEDS: ASPIRIN ENTERIC COATED 81 MG TABLET.DR. PO SCH (09:01)
[2018-01-06] MEDS: CYANOCOBALAMIN (VITAMIN B-12) 1,000 MCG TABLET. PO SCH (09:01)
[2018-01-06] MEDS: CARVEDILOL 6.25 MG TABLET. PO SCH ×2 (09:02→16:54)
[2018-01-06] MEDS: LISINOPRIL 20 MG TABLET PO SCH (09:02)
[2018-01-06] MEDS: CYCLOBENZAPRINE 10 MG TABLET. PO SCH (09:03)
[2018-01-06] MEDS: levETIRAcetam 500 MG TABLET PO SCH (09:03)
--- NOTE | 2018-01-06 09:35 | PDOC ---
Subjective: Subjective: Still not much appetite but keeping food down. Had a liquid stool. Reflux better. Objective: Objective: DC held yesterday for HTN. Vital Signs: Vital Signs Date Time Temp Pulse Resp B/P (MAP) Pulse Ox O2 Delivery O2 Flow Rate FiO2 01/06/18 09:06 Room Air 01/06/18 09:02 76 139/97 01/06/18 07:00 98.1 20 96 98.1 PE: GEN: NAD LUNGS: CTAB HEART: RRR ABD: soft NEURO/PSYCH: A & O 3 A/P: Hematochezia - resolved -- Continue PPI. Awaiting DC. ANNEMARIE SAWANT Jan 06, 2018 09:35
[2018-01-06 11:00] VITALS: BP 141/95
--- NOTE | 2018-01-06 11:04 | RAD ---
Left hip, 2 views, 01/06/2018: HISTORY: Hip pain No fracture or dislocation is identified. The left joint space is well maintained. IMPRESSION: No significant left hip abnormality is detected. Electronically signed by: Abhijeet Henao MD (01/06/2018 11:00 AM) [facility]
--- NOTE | 2018-01-06 11:05 | RAD ---
Left knee, 2 views, 01/06/2018: HISTORY: Knee pain No fracture or dislocation is identified. There is chondrocalcinosis at the knee joint most prominent posteromedially. There is a suggestion of a small joint effusion. IMPRESSION: 1. No acute bony abnormality is detected. 2. Chondrocalcinosis with a probable joint effusion. Electronically signed by: Abhijeet Henao MD (01/06/2018 11:02 AM) [facility]
--- NOTE | 2018-01-06 11:38 | PDOC ---
PROGRESS NOTES Chief Complaint Chief Complaint 1. syncopal episode with hx CAD 2. LOC with loss of bladder continence 3. CAD/ REMOTE MS 4. elevated troponin i 5. ABDOMINAL DISCOMFORT, nonspecific 6. prostatic enlargement by ct 7. RLL nodule, suspect nipple shadow 8. GERD 9. KNown SZ 10. NON injury fall 01/03 History of Present Illness History of Present Illness left knee pain, cannot walk, will Xray and US, poss DVT will try to DC today I told them that he will get back to them once EGD and colonoscopy has been done [place] by neurology feels well otherwise Vitals Vitals Vital Signs Date Time Temp Pulse Resp B/P (MAP) Pulse Ox O2 Delivery O2 Flow Rate FiO2 01/06/18 09:06 Room Air 01/06/18 09:02 76 139/97 01/06/18 07:00 98.1 20 96 98.1 Physical Exam General: Alert, Oriented X3, Cooperative, No acute distress Heart: Regular rate (SR), Normal S1, Normal S2, No murmurs Abdomen: Soft, No tenderness Extremities: No cyanosis, No edema Skin: No breakdown, No significant lesion Comment Review of Relevant I have reviewed the following items andree (where applicable) has been applied. Medications Current Medications Aspirin (Oliva Aspirin) 325 mg 1X ONCE PO Last administered on 12/31/17at 19:14 ; Start 12/31/17 at 18:45; Stop 12/31/17 at 18:46; Status DC Nitroglycerin (Nitrostat) 0.4 mg PRN Q5MIN PRN SL CHEST PAIN; Start 12/31/17 at 18:45 Acetaminophen (Tylenol) 650 mg PRN Q6HRS PRN PO MILD PAIN / TEMP Last administered on 01/03/18at 06:50; Start 12/31/17 at 18:45 Al Hydroxide/Mg Hydroxide (Mylanta Plus Xs) 30 ml PRN Q4HRS PRN PO HEARTBURN / GAS; Start 12/31/17 at 18:45 Ondansetron HCl (Zofran) 4 mg PRN Q6HRS PRN IV NAUSEA/VOMITING; Start 12/31/17 at 18:45 Prochlorperazine (Compazine) 25 mg PRN Q12HR PRN VA NAUSEA/VOMITING; Start at 18:45 Zolpidem Tartrate (Ambien) 5 mg PRN QHS PRN PO INSOMNIA Last administered on at 23:33; Start 12/31/17 at 18:45 Enoxaparin Sodium (Lovenox 40mg Syringe) 40 mg Q12HR SQ ; Start 12/31/17 at 21: 00; Status UNV Sodium Chloride (Normal Saline Flush) 3 ml QSHIFT PRN IV AFTER MEDS AND BLOOD DRAWS; Start 12/31/17 at 18:45 Sodium Chloride 1,000 ml @ 100 mls/hr Q10H IV Last administered on 01/04/18at 22:32; Start 12/31/17 at 18:32; Stop 01/05/18 at 16:26; Status DC Senna/Docusate Sodium (Senna Plus) 1 tab BID PO Last administered on 01/06/18at 09:01; Start 12/31/17 at 21:00 Docusate Sodium (Colace) 100 mg BID PO Last administered on 01/06/18at 09:01; Start 12/31/17 at 21:00 Magnesium Hydroxide (Milk Of Magnesia) 2,400 mg PRN Q12HR PRN PO CONSTIPATION; Start 12/31/17 at 18:45 Bisacodyl (Dulcolax Supp) 10 mg PRN DAILY PRN VA CONSTIPATION; Start 12/31/17 at 18:45 Enoxaparin Sodium (Lovenox 40mg Syringe) 40 mg Q24H SQ Last administered on at 21:02; Start 12/31/17 at 20:00; Stop 01/01/18 at 09:02; Status DC Lisinopril (Prinivil) 20 mg DAILY PO Last administered on 01/06/18at 09:02; Start 01/01/18 at 09:00 Metoprolol Tartrate (Lopressor) 12.5 mg BID PO Last administered on 01/01/18at 08:21; Start 12/31/17 at 21:00; Stop 01/01/18 at 10:48; Status DC Tramadol HCl (Ultram) 50 mg TID PRN PRN PO MOD-SEVERE PAIN Last administered on 01/01/18at 15:46; Start 12/31/17 at 18:45; Stop 01/02/18 at 07:39; Status DC Vitamin D (Vitamin D3) 1,000 unit DAILY PO Last administered on 01/06/18 09:01 ; Start 01/01/18 at 09:00 Cyclobenzaprine HCl (Flexeril) 5 mg BID PO Last administered on 01/06/18at 09:03 ; Start 12/31/17 at 21:00 Ibuprofen (Motrin) 800 mg PRN Q8HRS PRN PO INFLAMMATION Last administered on at 00:07; Start 12/31/17 at 19:00; Stop 01/01/18 at 09:02; Status DC Famotidine (Pepcid) 20 mg BID PO Last administered on 01/01/18at 08:19; Start at 21:00; Stop 01/01/18 at 11:14; Status DC Lorazepam (Ativan) 2 mg PRN Q4HRS PRN IV ANXIETY / AGITATION; Start 12/31/17 at 18:45 Labetalol HCl (Normodyne Iv Push) 20 mg PRN Q2HR PRN IVP HYPERTENSION, SEE COMMENTS; Start 01/01/18 at 09:15; Stop 01/01/18 at 10:48; Status DC Atorvastatin Calcium (Lipitor) 20 mg QHS PO ; Start 01/01/18 at 21:00; Stop at 21:00; Status DC Atorvastatin Calcium (Lipitor) 40 mg QHS PO Last administered on 01/05/18at 21: 05; Start 01/01/18 at 21:00 Carvedilol (Coreg) 3.125 mg BIDWMEALS PO Last administered on 01/05/18at 08:25; Start 01/01/18 at 17:00; Stop 01/05/18 at 14:26; Status DC Aspirin (Ecotrin) 81 mg DAILYWBKFT PO Last administered on 01/06/18at 09:01; Start 01/01/18 at 11:30 Amlodipine Besylate (Norvasc) 5 mg DAILY PO Last administered on 01/05/18at 08: 29; Start 01/01/18 at 11:30; Stop 01/05/18 at 14:26; Status DC Cyanocobalamin (Vitamin B-12) 1,000 mcg DAILY PO Last administered on at 09:01; Start 01/01/18 at 12:00 Pantoprazole Sodium (Protonix) 40 mg BIDAC PO Last administered on 01/06/18at 09 :01; Start 01/01/18 at 16:30 Levetiracetam 500 mg/Dextrose 105 ml @ 420 mls/hr 1X ONCE IV Last administered on 01/02/18at 09:13; Start 01/02/18 at 08:00; Stop 01/02/18 at 08:14 ; Status DC Levetiracetam (Keppra) 500 mg BID PO Last administered on 01/06/18at 09:03; Start 01/02/18 at 21:00 Tramadol HCl (Ultram) 50 mg PRN Q6HRS PRN PO MODERATE PAIN Last administered on 01/06/18at 06:38; Start 01/02/18 at 21:30 Bisacodyl (Dulcolax Tab) 10 mg 1X ONCE PO Last administered on 01/03/18at 16:22 ; Start 01/03/18 at 14:00; Stop 01/03/18 at 14:13; Status DC Polyethylene Glycol (miraLAX Powder BULK BOTTLE) 238 gm 1X ONCE PO Last administered on 01/03/18at 16:22; Start 01/03/18 at 16:00; Stop 01/03/18 at 16:01 ; Status DC Sodium Chloride (Normal Saline Flush) 3 ml QSHIFT PRN IV AFTER MEDS AND BLOOD DRAWS; Start 01/03/18 at 14:15; Status Cancel Sodium Chloride (Normal Saline Flush) 3 ml QSHIFT PRN IV AFTER MEDS AND BLOOD DRAWS; Start 01/03/18 at 14:15 Ringer's Solution 1,000 ml @ 75 mls/hr [id number] IV Last administered on at 11:30; Start 01/04/18 at 11:30; Stop 01/05/18 at 16:26; Status DC Propofol 20 ml @ As Directed STK-MED ONCE IV ; Start 01/04/18 at 12:07; Stop at 12:08; Status DC Lidocaine HCl (Lidocaine Pf 2% Vial) 5 ml STK-MED ONCE .ROUTE ; Start 01/04/18 at 12:07; Stop 01/04/18 at 12:08; Status DC Propofol 20 ml @ As Directed STK-MED ONCE IV ; Start 01/04/18 at 12:07; Stop at 12:08; Status DC Labetalol HCl (Normodyne Iv Push) 20 mg PRN Q2HR PRN IVP HYPERTENSION, SEE COMMENTS; Start 01/04/18 at 22:45 Labetalol HCl (Normodyne Iv Push) 20 mg 1X ONCE IVP Last administered on at 11:04; Start 01/05/18 at 11:00; Stop 01/05/18 at 11:01; Status DC Enalaprilat (Vasotec Inj) 1.25 mg 1X ONCE IVP Last administered on 01/05/18at 13:25; Start 01/05/18 at 13:15; Stop 01/05/18 at 13:20; Status DC Morphine Sulfate (Morphine Sulfate) 2 mg 1X ONCE IV Last administered on at 13:24; Start 01/05/18 at 13:15; Stop 01/05/18 at 13:20; Status DC Amlodipine Besylate (Norvasc) 10 mg DAILY PO Last administered on 01/06/18at 09: 02; Start 01/06/18 at 09:00 Carvedilol (Coreg) 6.25 mg BIDWMEALS PO Last administered on 01/06/18at 09:02; Start 01/05/18 at 17:00 Amlodipine Besylate (Norvasc) 5 mg 1X ONCE PO Last administered on 01/05/18at 14:59; Start 01/05/18 at 14:30; Stop 01/05/18 at 14:31; Status DC Active Scripts Active Keppra (Levetiracetam) 500 Mg Tablet 500 Mg PO BID 30 Days Aspirin Ec (Aspirin) 81 Mg Tablet.dr 81 Mg PO DAILYWBKFT 30 Days Amlodipine Besylate 5 Mg Tablet 5 Mg PO DAILY 30 Days Nitrostat (Nitroglycerin) 0.4 Mg Tab.subl 0.4 Mg SL PRN Q5MIN PRN 30 Days Carvedilol 3.125 Mg Tablet 3.125 Mg PO BIDWMEALS 30 Days Atorvastatin Calcium 40 Mg Tablet 40 Mg PO QHS 30 Days Reported Cyclobenzaprine Hcl 5 Mg Tablet 1 Tab PO BID Vitamin D (Cholecalciferol (Vitamin D3)) 1,000 Unit Capsule 1 Cap PO DAILY Tramadol Hcl 50 Mg Tablet 50 Mg PO TID PRN PRN Ranitidine Hcl 150 Mg Tablet 1 Tab PO BID Lisinopril 20 Mg Tablet 1 Tab PO DAILY Metoprolol Tartrate 25 Mg Tablet 0.5 Tab PO BID Ibuprofen 800 Mg Tablet 800 Mg PO TID PRN Vitals/I & O Vital Sign - Last 24 Hours 01/05/18 01/05/18 01/05/18 01/05/18 13:03 13:24 13:25 13:54 Pulse 79 79 Resp 18 18 B/P (MAP) 193/104 (133) 193/104 O2 Delivery Room Air Room Air 01/05/18 01/05/18 01/05/18 01/05/18 14:18 14:18 14:59 17:06 Pulse 77 77 77 76 B/P (MAP) 168/89 (115) 170/98 (122) 168/89 156/101 01/05/18 01/05/18 01/05/18 01/05/18 18:02 19:00 20:00 23:00 Temp 97.7 98.2 97.7 98.2 Pulse 74 65 Resp 18 18 20 B/P (MAP) 156/92 (113) 142/105 (117) Pulse Ox 99 93 O2 Delivery Room Air Room Air Room Air 01/06/18 01/06/18 01/06/18 01/06/18 03:00 06:38 07:00 08:00 Temp 98.1 98.1 98.1 98.1 Pulse 77 76 Resp 18 20 B/P (MAP) 112/73 (86) 139/97 (111) Pulse Ox 93 96 O2 Delivery Room Air Room Air Room Air Room Air 01/06/18 01/06/18 01/06/18 01/06/18 09:02 09:02 09:02 09:06 Pulse 76 76 76 B/P (MAP) 139/97 139/97 139/97 O2 Delivery Room Air Intake and Output 01/05/18 01/05/18 01/06/18 15:00 23:00 07:00 Intake Total 1605 ml 420 ml 400 ml Output Total 1900 ml 700 ml 400 ml Balance -295 ml -280 ml 0 ml Nutrition Consultation Dietary Evaluation: Recommendations by RD: PPN/TPN Comments: REC cardiac/soft diet REC Ensure w/lunch and dinner, all flavors Expected Outcomes/Goals: PO intake to meet >75% est needs Interpretation of weight loss: >5% in 1 month Malnutrition Findings: Food and Nutrition Intake (Mod: <75% est energy req 7days Weight Status: Appropriate JORDAN PADGETT MD Jan 06, 2018 11:38
[2018-01-06] MEDS ORDERED: BUPIVACAINE MPF 0.25% 10 ML VIAL. IJ ONE (12:45)
[2018-01-06] MEDS ORDERED: methylPREDNISolone ACETATE 40 MG/ML VIAL. IM ONE (12:45)
[2018-01-06] MEDS ORDERED: methylPREDNISolone ACETATE 40 MG/ML VIAL. ONE (13:00)
[2018-01-06] MEDS ORDERED: BUPIVACAINE MPF 0.25% 10 ML VIAL. ONE (13:00)
--- NOTE | 2018-01-06 13:05 | PDOC ---
PROGRESS NOTES Subjective Subjective He c/o left knee pain that started yesterday while trying to get up and pain has worsened this AM. Objective Objective Vital Signs Date Time Temp Pulse Resp B/P (MAP) Pulse Ox O2 Delivery O2 Flow Rate FiO2 01/06/18 12:40 Room Air 01/06/18 11:00 97.6 71 20 141/95 (110) 96 97.6 01/04/18 12:37 2 Intake and Output 01/06/18 07:00 Intake Total 2425 ml Output Total 3000 ml Balance -575 ml Intake Oral 1860 ml IV Total 565 ml Output Urine Total 2600 ml Gastric Drainage Total 400 ml # Voids 1 Physical Exam Physical Exam He is supine in bed with restraints to his wrists and ankles and he is protecting his left knee and painfully limited left knee joint ROM with diffuse tenderness more so over tendinous attachments in the popliteal fossa area. He had crepitus on ROM of his knees with mild edema left knee and no change noted with his neurological examination. I have not tested his ambulation at this time. X-ray of left knee non weight bearing revealed narrowing of medial knee joint line. Assessment Assessment Osteoarthritis of both knees with recent left knee sprain and tendinitis. Plan Plan of Care At his request,I have injected his left knee joint under aseptic skin technique with 2 ml of 0.25% marcaine solution mixed with 1 ml of depomedrol 40 mg/1ml solution and he tolerated the procedure satisfactorily without any side effects.I have advised him in isometric strengthening exercises to his knees and advised him to use a cane while up walking if pain makes him limp and he may need hinge knee brace if pain persists. Comment Review of Relevant I have reviewed the following items andree (where applicable) has been applied. Medications Current Medications Aspirin (Oliva Aspirin) 325 mg 1X ONCE PO Last administered on 12/31/17at 19:14 ; Start 12/31/17 at 18:45; Stop 12/31/17 at 18:46; Status DC Nitroglycerin (Nitrostat) 0.4 mg PRN Q5MIN PRN SL CHEST PAIN; Start 12/31/17 at 18:45 Acetaminophen (Tylenol) 650 mg PRN Q6HRS PRN PO MILD PAIN / TEMP Last administered on 01/03/18at 06:50; Start 12/31/17 at 18:45 Al Hydroxide/Mg Hydroxide (Mylanta Plus Xs) 30 ml PRN Q4HRS PRN PO HEARTBURN / GAS; Start 12/31/17 at 18:45 Ondansetron HCl (Zofran) 4 mg PRN Q6HRS PRN IV NAUSEA/VOMITING; Start 12/31/17 at 18:45 Prochlorperazine (Compazine) 25 mg PRN Q12HR PRN MD NAUSEA/VOMITING; Start at 18:45 Zolpidem Tartrate (Ambien) 5 mg PRN QHS PRN PO INSOMNIA Last administered on at 23:33; Start 12/31/17 at 18:45 Enoxaparin Sodium (Lovenox 40mg Syringe) 40 mg Q12HR SQ ; Start 12/31/17 at 21: 00; Status UNV Sodium Chloride (Normal Saline Flush) 3 ml QSHIFT PRN IV AFTER MEDS AND BLOOD DRAWS; Start 12/31/17 at 18:45 Sodium Chloride 1,000 ml @ 100 mls/hr Q10H IV Last administered on 01/04/18at 22:32; Start 12/31/17 at 18:32; Stop 01/05/18 at 16:26; Status DC Senna/Docusate Sodium (Senna Plus) 1 tab BID PO Last administered on 01/06/18at 09:01; Start 12/31/17 at 21:00 Docusate Sodium (Colace) 100 mg BID PO Last administered on 01/06/18at 09:01; Start 12/31/17 at 21:00 Magnesium Hydroxide (Milk Of Magnesia) 2,400 mg PRN Q12HR PRN PO CONSTIPATION; Start 12/31/17 at 18:45 Bisacodyl (Dulcolax Supp) 10 mg PRN DAILY PRN MD CONSTIPATION; Start 12/31/17 at 18:45 Enoxaparin Sodium (Lovenox 40mg Syringe) 40 mg Q24H SQ Last administered on at 21:02; Start 12/31/17 at 20:00; Stop 01/01/18 at 09:02; Status DC Lisinopril (Prinivil) 20 mg DAILY PO Last administered on 01/06/18at 09:02; Start 01/01/18 at 09:00 Metoprolol Tartrate (Lopressor) 12.5 mg BID PO Last administered on 01/01/18at 08:21; Start 12/31/17 at 21:00; Stop 01/01/18 at 10:48; Status DC Tramadol HCl (Ultram) 50 mg TID PRN PRN PO MOD-SEVERE PAIN Last administered on 01/01/18at 15:46; Start 12/31/17 at 18:45; Stop 01/02/18 at 07:39; Status DC Vitamin D (Vitamin D3) 1,000 unit DAILY PO Last administered on 01/06/18at 09:01 ; Start 01/01/18 at 09:00 Cyclobenzaprine HCl (Flexeril) 5 mg BID PO Last administered on 01/06/18at 09:03 ; Start 12/31/17 at 21:00 Ibuprofen (Motrin) 800 mg PRN Q8HRS PRN PO INFLAMMATION Last administered on at 00:07; Start 12/31/17 at 19:00; Stop 01/01/18 at 09:02; Status DC Famotidine (Pepcid) 20 mg BID PO Last administered on 01/01/18at 08:19; Start at 21:00; Stop 01/01/18 at 11:14; Status DC Lorazepam (Ativan) 2 mg PRN Q4HRS PRN IV ANXIETY / AGITATION; Start 12/31/17 at 18:45 Labetalol HCl (Normodyne Iv Push) 20 mg PRN Q2HR PRN IVP HYPERTENSION, SEE COMMENTS; Start 01/01/18 at 09:15; Stop 01/01/18 at 10:48; Status DC Atorvastatin Calcium (Lipitor) 20 mg QHS PO ; Start 01/01/18 at 21:00; Stop at 21:00; Status DC Atorvastatin Calcium (Lipitor) 40 mg QHS PO Last administered on 01/05/18at 21: 05; Start 01/01/18 at 21:00 Carvedilol (Coreg) 3.125 mg BIDWMEALS PO Last administered on 01/05/18at 08:25; Start 01/01/18 at 17:00; Stop 01/05/18 at 14:26; Status DC Aspirin (Ecotrin) 81 mg DAILYWBKFT PO Last administered on 01/06/18 09:01; Start 01/01/18 at 11:30 Amlodipine Besylate (Norvasc) 5 mg DAILY PO Last administered on 01/05/18at 08: 29; Start 01/01/18 at 11:30; Stop 01/05/18 at 14:26; Status DC Cyanocobalamin (Vitamin B-12) 1,000 mcg DAILY PO Last administered on 09:01; Start 01/01/18 at 12:00 Pantoprazole Sodium (Protonix) 40 mg BIDAC PO Last administered on 01/06/18 09 :01; Start 01/01/18 at 16:30 Levetiracetam 500 mg/Dextrose 105 ml @ 420 mls/hr 1X ONCE IV Last administered on 01/02/18 09:13; Start 01/02/18 at 08:00; Stop 01/02/18 at 08:14 ; Status DC Levetiracetam (Keppra) 500 mg BID PO Last administered on 01/06/18at 09:03; Start 01/02/18 at 21:00 Tramadol HCl (Ultram) 50 mg PRN Q6HRS PRN PO MODERATE PAIN Last administered on 01/06/18at 12:40; Start 01/02/18 at 21:30 Bisacodyl (Dulcolax Tab) 10 mg 1X ONCE PO Last administered on 01/03/18 16:22 ; Start 01/03/18 at 14:00; Stop 01/03/18 at 14:13; Status DC Polyethylene Glycol (miraLAX Powder BULK BOTTLE) 238 gm 1X ONCE PO Last administered on 01/03/18at 16:22; Start 01/03/18 at 16:00; Stop 01/03/18 at 16:01 ; Status DC Sodium Chloride (Normal Saline Flush) 3 ml QSHIFT PRN IV AFTER MEDS AND BLOOD DRAWS; Start 01/03/18 at 14:15; Status Cancel Sodium Chloride (Normal Saline Flush) 3 ml QSHIFT PRN IV AFTER MEDS AND BLOOD DRAWS; Start 01/03/18 at 14:15 Ringer's Solution 1,000 ml @ 75 mls/hr [id number] IV Last administered on at 11:30; Start 01/04/18 at 11:30; Stop 01/05/18 at 16:26; Status DC Propofol 20 ml @ As Directed STK-MED ONCE IV ; Start 01/04/18 at 12:07; Stop at 12:08; Status DC Lidocaine HCl (Lidocaine Pf 2% Vial) 5 ml STK-MED ONCE .ROUTE ; Start 01/04/18 at 12:07; Stop 01/04/18 at 12:08; Status DC Propofol 20 ml @ As Directed STK-MED ONCE IV ; Start 01/04/18 at 12:07; Stop at 12:08; Status DC Labetalol HCl (Normodyne Iv Push) 20 mg PRN Q2HR PRN IVP HYPERTENSION, SEE COMMENTS; Start 01/04/18 at 22:45 Labetalol HCl (Normodyne Iv Push) 20 mg 1X ONCE IVP Last administered on at 11:04; Start 01/05/18 at 11:00; Stop 01/05/18 at 11:01; Status DC Enalaprilat (Vasotec Inj) 1.25 mg 1X ONCE IVP Last administered on 01/05/18at 13:25; Start 01/05/18 at 13:15; Stop 01/05/18 at 13:20; Status DC Morphine Sulfate (Morphine Sulfate) 2 mg 1X ONCE IV Last administered on at 13:24; Start 01/05/18 at 13:15; Stop 01/05/18 at 13:20; Status DC Amlodipine Besylate (Norvasc) 10 mg DAILY PO Last administered on 01/06/18at 09: 02; Start 01/06/18 at 09:00 Carvedilol (Coreg) 6.25 mg BIDWMEALS PO Last administered on 01/06/18at 09:02; Start 01/05/18 at 17:00 Amlodipine Besylate (Norvasc) 5 mg 1X ONCE PO Last administered on 01/05/18at 14:59; Start 01/05/18 at 14:30; Stop 01/05/18 at 14:31; Status DC Active Scripts Active Keppra (Levetiracetam) 500 Mg Tablet 500 Mg PO BID 30 Days Aspirin Ec (Aspirin) 81 Mg Tablet.dr 81 Mg PO DAILYWBKFT 30 Days Amlodipine Besylate 5 Mg Tablet 5 Mg PO DAILY 30 Days Nitrostat (Nitroglycerin) 0.4 Mg Tab.subl 0.4 Mg SL PRN Q5MIN PRN 30 Days Carvedilol 3.125 Mg Tablet 3.125 Mg PO BIDWMEALS 30 Days Atorvastatin Calcium 40 Mg Tablet 40 Mg PO QHS 30 Days Reported Cyclobenzaprine Hcl 5 Mg Tablet 1 Tab PO BID Vitamin D (Cholecalciferol (Vitamin D3)) 1,000 Unit Capsule 1 Cap PO DAILY Tramadol Hcl 50 Mg Tablet 50 Mg PO TID PRN PRN Ranitidine Hcl 150 Mg Tablet 1 Tab PO BID Lisinopril 20 Mg Tablet 1 Tab PO DAILY Metoprolol Tartrate 25 Mg Tablet 0.5 Tab PO BID Ibuprofen 800 Mg Tablet 800 Mg PO TID PRN Vitals/I & O Vital Sign - Last 24 Hours 01/05/18 01/05/18 01/05/18 01/05/18 13:03 13:24 13:25 13:54 Pulse 79 79 Resp 18 18 B/P (MAP) 193/104 (133) 193/104 O2 Delivery Room Air Room Air 01/05/18 01/05/18 01/05/18 01/05/18 14:18 14:18 14:59 17:06 Pulse 77 77 77 76 B/P (MAP) 168/89 (115) 170/98 (122) 168/89 156/101 01/05/18 01/05/18 01/05/18 01/05/18 18:02 19:00 20:00 23:00 Temp 97.7 98.2 97.7 98.2 Pulse 74 65 Resp 18 18 20 B/P (MAP) 156/92 (113) 142/105 (117) Pulse Ox 99 93 O2 Delivery Room Air Room Air Room Air 01/06/18 01/06/18 01/06/18 01/06/18 03:00 06:38 07:00 08:00 Temp 98.1 98.1 98.1 98.1 Pulse 77 76 Resp 18 20 B/P (MAP) 112/73 (86) 139/97 (111) Pulse Ox 93 96 O2 Delivery Room Air Room Air Room Air Room Air 01/06/18 01/06/18 01/06/18 01/06/18 09:02 09:02 09:02 09:06 Pulse 76 76 76 B/P (MAP) 139/97 139/97 139/97 O2 Delivery Room Air 01/06/18 01/06/18 11:00 12:40 Temp 97.6 97.6 Pulse 71 Resp 20 B/P (MAP) 141/95 (110) Pulse Ox 96 O2 Delivery Room Air Room Air Intake and Output 01/05/18 01/05/18 01/06/18 15:00 23:00 07:00 Intake Total 1605 ml 420 ml 400 ml Output Total 1900 ml 700 ml 400 ml Balance -295 ml -280 ml 0 ml Nutrition Consultation Dietary Evaluation: Recommendations by RD: PPN/TPN Comments: continue with nutrition care order Expected Outcomes/Goals: PO intake to meet >75% est needs- met, goal ongoing Interpretation of weight loss: >5% in 1 month Malnutrition Findings: Food and Nutrition Intake (Mod: <75% est energy req 7days Weight Status: Appropriate MARGOT PELAYO MD Jan 06, 2018 13:05
--- NOTE | 2018-01-06 14:12 | RAD ---
Left lower extremity venous doppler ultrasound History: Left knee pain and swelling Comparison: None Findings: Multiple grayscale, color, and duplex spectral analysis sonographic images were acquired of the left lower extremity veins to evaluate for the presence of DVT. There is normal phasicity. Normal compression, color-flow, and augmentation is demonstrated from the left common femoral to the popliteal veins. There is normal color flow of the proximal greater saphenous and profunda femoris veins. There is normal color flow of segments of the calf veins. Impression: 1. There is no evidence of deep venous thrombosis from the left common femoral to popliteal veins. Electronically signed by: Brian Stephen MD (01/06/2018 2:08 PM) [email or web address]
[2018-01-06 15:00] VITALS: BP 143/97
--- NOTE | 2018-01-06 16:37 | PDOC ---
PROGRESS NOTES Assessment Assessment Syncopal spell vs seizure? Confusion, brief. CAD. AR Hx. HTN. HLD. 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 No evidence of acute intracranial abnormal findings this time. RECOMMENDATIONS/PLAN: Treat medical and cardiac diseases. Vit B12 supplement. Keppra [address] Sandoval. EEG on 01/02: Normal. HISTORY OF THE PRESENT ILLNESS: This is a 57-y-old male inmate. He had an episode as syncopal spell vs seizure with briefly LOC then confusion, but no detailed information is available. No convulsion reported. The patient was unable to provide information about his episode. He was reportedly to have a seizure or seizure like episode lasted for < 1 minute on 01/02/18 described as shaking movements in his extremities, but he covered himself with sheet, so not possible to see his eyes, face, or extremities, except saw movements inside sheet.He was reportedly able to talk normally after his episode. He said he heard people calling him during the episode. PAST MEDICAL HISTORY Cardiovascular: CAD, HTN, Hyperlipidemia Pulmonary: No pertinent hx CENTRAL NERVOUS SYSTEM: Seizure (?), TIA (?) GI: GERD Heme/Onc: No pertinent hx Hepatobiliary: No pertinent hx Psych: Depression (was on prozac but was taken off due to hyponatremia) Musculoskeletal: Osteoarthritis Rheumatologic: No pertinent hx Infectious disease: No pertinent hx ENT: No pertinent hx Renal/: Benign prostatic enlarg. Endocrine: No pertinent hx Dermatology: No pertinent hx PAST SURGICAL HISTORY Arthroscopy (left knee meniscus repair), Other (PCI/stent 4 yrs ago) FAMILY HISTORY HLD. SOCIAL HISTORY Smoke: <1 pack per day ALCOHOL: none Drugs: None Lives: Currently in correctional facility. ALLERGIES Penicillins (Verified Allergy, Intermediate, Rash, 01/01/18) MEDICATIONS: Refer to [facility] REVIEW OF SYSTEMS: Constitutional: No malnutrition, weight loss, cachexia. Head: No recent traumatic brain or head injury. Skin: No edema, or rash. Ear: No infection. Eyes: No vision loss or color blindness. Nose: No bleeding or purulent discharges. Hearing: No hearing decrease. Neck: No injury. Cardiac: CAD, HTN, HLD. Pulmonary: No COPD. GI: GERD. Urinary/genital: No dysuria, incontinence, urinary retention. Endocrinologic: No cousin face, craniofacial dysmorphism, polydactyly. Skeletomuscular: No muscular atrophy, deformity. Neurological: see HP. Psychiatric: Denies drug use/abuse. Otherwise, not -zypiv review of systems. PHYSICAL EXAMINATION: General appearance is in no acute distress. HEENT: Normocephalic and nontraumatic. Eyes, nose, ears, and throat are unremarkable. Neck is supple. No lymphadenopathy. No crepitus. Cardiovascular: S1, S2, regular rate and rhythm. Pulmonary: Clear to auscultation bilaterally. Abdomen: Bowel sounds are positive. Extremities: No rash, lesions, or edema. No restriction of range of motion NEUROLOGICAL EXAMINATION: Alert. Oriented to time, place and person. PERRL. EOMI. CN: no focal findings. Muscle tone: within normal. Muscle strength: 5 DTR: 2 Plantar reflex: Flexor response bilaterally Gait: not examined in bed. Sensory exam: no abnormal findings. No cerebellar signs elicited. F-T-N test fine. Objective Objective Vital Signs Date Time Temp Pulse Resp B/P (MAP) Pulse Ox O2 Delivery O2 Flow Rate FiO2 01/06/18 15:00 97.8 83 20 143/97 (112) 98 Room Air 97.8 Intake and Output 01/06/18 07:00 Intake Total 2425 ml Output Total 3000 ml Balance -575 ml Intake Oral 1860 ml IV Total 565 ml Output Urine Total 2600 ml Gastric Drainage Total 400 ml # Voids 1 Vitals Signs Vitals VS - Last 72 Hours, by Label Date Time Temp Pulse Resp B/P (MAP) Pulse Ox O2 Delivery O2 Flow Rate FiO2 01/06/18 15:00 97.8 83 20 143/97 (112) 98 Room Air 97.8 01/06/18 12:40 Room Air 01/06/18 11:00 97.6 71 20 141/95 (110) 96 Room Air 97.6 01/06/18 09:06 Room Air 01/06/18 09:02 76 139/97 01/06/18 09:02 76 139/97 01/06/18 09:02 76 139/97 01/06/18 08:00 Room Air 01/06/18 07:00 98.1 76 20 139/97 (111) 96 Room Air 98.1 01/06/18 06:38 Room Air 01/06/18 03:00 98.1 77 18 112/73 (86) 93 Room Air 98.1 01/05/18 23:00 98.2 65 20 142/105 (117) 93 Room Air 98.2 01/05/18 20:00 Room Air 01/05/18 19:00 97.7 74 18 156/92 (113) 99 Room Air 97.7 01/05/18 18:02 18 01/05/18 17:06 76 156/101 01/05/18 14:59 77 168/89 01/05/18 14:18 77 170/98 (122) 01/05/18 14:18 77 168/89 (115) 01/05/18 13:54 18 Room Air 01/05/18 13:25 79 193/104 01/05/18 13:24 18 Room Air 01/05/18 13:03 79 193/104 (133) 01/05/18 11:04 61 163/88 01/05/18 11:03 18 01/05/18 10:44 97.5 61 163/88 (113) 98 Room Air 97.5 01/05/18 08:31 18 Room Air 01/05/18 08:29 66 159/122 01/05/18 08:25 66 159/122 01/05/18 08:24 66 159/122 01/05/18 08:00 Room Air Medication Medications Current Medications Amlodipine Besylate (Norvasc) 10 mg DAILY PO Last administered on 01/06/18at 09: 02; Start 01/06/18 at 09:00 Bupivacaine HCl (Sensorcaine-Mpf 0.25%) 10 ml 1X ONCE IJ ; Start 01/06/18 at 12 :45; Stop 01/06/18 at 12:46; Status DC Carvedilol (Coreg) 6.25 mg BIDWMEALS PO Last administered on 01/06/18at 09:02; Start 01/05/18 at 17:00 Methylprednisolone Acetate (DEPO-Medrol 40MG VIAL) 40 mg 1X ONCE IM ; Start at 12:45; Stop 01/06/18 at 12:46; Status DC Comment Review of Relevant I have reviewed the following items andree (where applicable) has been applied. SALINAS BRADY MD Jan 06, 2018 16:37
[2018-01-06 16:54] VITALS: BP 143/97
== END 2018-01-06 19:28 | DRG 73 ==
LOC: 5 SOUTH 16:20 → EEVIPCON 16:20
PROVIDERS: ADMIT Family Medicine; ATTEND Family Medicine
PROC: 0DJ08ZZ Inspection of Upper Intestinal Tract, Via Natural or Artificial Opening Endoscopic (ICD-10-PCS; principal; 2017-12-31)
PROC: 0DJD8ZZ Inspection of Lower Intestinal Tract, Via Natural or Artificial Opening Endoscopic (ICD-10-PCS; 2017-12-31)
DX: G90.8 Other disorders of autonomic nervous system (principal); G93.41 Metabolic encephalopathy; K92.1 Melena; R57.9 Shock, unspecified; F05 Delirium due to known physiological condition; K29.40 Chronic atrophic gastritis without bleeding; D51.0 Vitamin B12 deficiency anemia due to intrinsic factor deficiency; K64.8 Other hemorrhoids; I25.10 Atherosclerotic heart disease of native coronary artery without angina pectoris; K21.9 Gastro-esophageal reflux disease without esophagitis; M19.90 Unspecified osteoarthritis, unspecified site; F41.9 Anxiety disorder, unspecified; N40.0 Benign prostatic hyperplasia without lower urinary tract symptoms; F32.9 Major depressive disorder, single episode, unspecified; G89.29 Other chronic pain; I10 Essential (primary) hypertension; R63.4 Abnormal weight loss; Z68.21 Body mass index [BMI] 21.0-21.9, adult; D64.9 Anemia, unspecified; R32 Unspecified urinary incontinence; E78.5 Hyperlipidemia, unspecified; F17.210 Nicotine dependence, cigarettes, uncomplicated; G43.909 Migraine, unspecified, not intractable, without status migrainosus; Z60.2 Problems related to living alone; S13.4XXA Sprain of ligaments of cervical spine, initial encounter; M54.12 Radiculopathy, cervical region; W19.XXXA Unspecified fall, initial encounter; Y92.238 Other place in hospital as the place of occurrence of the external cause; S81.811A Laceration without foreign body, right lower leg, initial encounter; M17.0 Bilateral primary osteoarthritis of knee; G40.909 Epilepsy, unspecified, not intractable, without status epilepticus; X58.XXXA Exposure to other specified factors, initial encounter; I25.2 Old myocardial infarction; Y93.89 Activity, other specified; Y92.89 Other specified places as the place of occurrence of the external cause; Z98.49 Cataract extraction status, unspecified eye; Z88.0 Allergy status to penicillin; Y99.8 Other external cause status; Z95.1 Presence of aortocoronary bypass graft; Z79.899 Other long term (current) drug therapy; Z86.73 Personal history of transient ischemic attack (TIA), and cerebral infarction without residual deficits; Z95.5 Presence of coronary angioplasty implant and graft; Z95.0 Presence of cardiac pacemaker; Z82.49 Family history of ischemic heart disease and other diseases of the circulatory system; Z83.3 Family history of diabetes mellitus; Z84.89 Family history of other specified conditions; Z83.49 Family history of other endocrine, nutritional and metabolic diseases
CPT/HCPCS: 36415; 45378; 70551; 71045; 73502; 73560; 80048; 80053; 80061; 80307; 82607; 84443; 84484; 85014; 85018; 85025; 85610; 87641; 93005; 93306; 93971; 95816; G0103; J1030; J1650; J1953; J2001; J2270; J2704; J3490; J7030; J7120; G0479